=== PATIENT | male | born 1980 | race African-American/Black ===

== ENCOUNTER 2018-04-28 10:57 | Inpatient (IN) | payer OTHER ==
[~2018-04-28] VITALS: Ht 167.6 cm; Wt 55.3 kg
--- NOTE | 2018-04-28 11:10 | NUR ---
ED Nurse Note: Pt from home came in due to SOB x 1 week. Audible wheezing noted. Also c/o nausea/Vomiting. Pt has hx of asthma and AIDS. Noted weakness and accesory muscles used for breathing. Pt is AAO x4, ambulatory with SOB at rest.
[2018-04-28] MEDS ORDERED: Ipratropium 0.02% Inh Soln 2.5ml UD HHN ONE (11:15)
[2018-04-28] MEDS ORDERED: Albuterol ud Inhalation HHN ONE (11:15)
[2018-04-28] MEDS ORDERED: GENVOYA TABLET1 EACH PO (11:18)
[2018-04-28] MEDS ORDERED: DOCUSATE SODIU100 MG ORAL (11:18)
[2018-04-28 11:30] VITALS: BP 121/75
--- NOTE | 2018-04-28 11:40 | NUR ---
ED Nurse Note: Pt unable to urinate at this time.
[2018-04-28] MEDS ORDERED: Lidocaine 2% Visc 15ml soln ORAL ONE (11:45)
--- NOTE | 2018-04-28 11:45 | NUR ---
ED Nurse Note: Collected blood and flu swab sent.
[2018-04-28 11:50] LABS: HEMATOCRIT 38.1 % (42.0-52.0); HEMOGLOBIN 12.8 G/DL (14.2-18.0); MEAN CORPUSCULAR VOLUME 107 FL (80-99); PLATELET COUNT 274 K/UL (150-450); RED BLOOD COUNT 3.55 M/UL (4.70-6.10); RED CELL DISTRIBUTION WIDTH 14.2 % (11.6-14.8); WHITE BLOOD COUNT 3.4 K/UL (4.8-10.8)
[2018-04-28 12:01] LABS: ANION GAP 9 mmol/L (5-15); BLOOD UREA NITROGEN 16 mg/dL (7-18); CALCIUM 8.8 MG/DL (8.5-10.1); CARBON DIOXIDE 26 MMOL/L (21-32); CHLORIDE 97 MMOL/L (98-107); CREATININE 0.9 MG/DL (0.55-1.30); POTASSIUM 4.3 MMOL/L (3.5-5.1); SODIUM 132 MMOL/L (136-145)
[2018-04-28 12:05] LABS: ALANINE AMINOTRANSFERASE 22 U/L (12-78); ALBUMIN/GLOBULIN RATIO 0.3 (1.0-2.7); ALKALINE PHOSPHATASE 126 U/L (46-116); ASPARTATE AMINO TRANSFERASE 98 U/L (15-37); BILIRUBIN,TOTAL 0.4 MG/DL (0.2-1.0)
--- NOTE | 2018-04-28 12:09 | Diagnostic Imaging Report ---
Indication: Cough Technique: One view of the chest Comparison: none Findings: The heart is upper limits normal in size. There is extensive bilateral diffuse interstitial and airspace disease, particularly in the mid to lower lungs. The pleural spaces are grossly clear. Impression: Extensive bilateral diffuse interstitial and airspace infiltrates versus edema, predominantly in the mid and lower lung
--- NOTE | 2018-04-28 12:30 | NUR ---
ED Nurse Note: Collected urine and sent.
[2018-04-28 12:49] LABS: APPEARANCE,URINE CLEAR; BILIRUBIN, URINE NEGATIVE (NEGATIVE); COLOR,URINE BROWN; GLUCOSE, URINE (UA) NEGATIVE (NEGATIVE); KETONES,URINE 1+ (NEGATIVE); LEUKOCYTE ESTERASE ,URINE 1+ (NEGATIVE); NITRITE,URINE NEGATIVE (NEGATIVE); PH,URINE 6.5 (4.5-8.0); PROTEIN,URINE 3+ (NEGATIVE); UROBILINOGEN,URINE 1 MG/DL (0.0-1.0)
[2018-04-28 13:30] VITALS: BP 118/85
[2018-04-28] MEDS ORDERED: Azithromycin 500 MG in NS 275 ML IV ONE (14:00)
[2018-04-28] MEDS ORDERED: cefTRIAXone 1 GM in NS 55 ML IVPB ONE (14:00)
--- NOTE | 2018-04-28 14:04 | NUR ---
ED Nurse Note: Pt instructed to report any increased SOB or difficulty breathing during fluid administration. Pt verbalized understanding of teachings.
--- NOTE | 2018-04-28 14:17 | Emergency Room Report ---
History of Present Illness General Chief Complaint: Dyspnea/Respdistress Source: Patient Present Illness HPI Patient has a history of HIV/AIDS. He states that he hasn't been taking care of himself and hasn't been following on with his infectious disease specialist. He states that his life has been busy. He did recently restart anti- retroviral therapy. He complains of shortness of breath that is persistent and constant. He states he noted this worsening over the past couple days. He has had some coughing and congestion. Denies fever or chills. He states he's been fatigued and has had a poor appetite. He has also had weight loss. He denies chest pain. He denies abdominal pain. He has no other complaints. Allergies: Coded Allergies: No Known Allergies (Unverified , 04/28/18) Patient History Past Medical History: see triage record, asthma, seizures, HIV - AIDS, other - Hemorrhoids Social History: Denies: smoking, alcohol use, drug use Reviewed Nursing Documentation: PMH: Agreed; PSxH: Agreed Nursing Documentation-PMH Hx Asthma: Yes Hx Seizures: Yes Review of Systems All Other Systems: negative except mentioned in HPI Physical Exam Vital Signs Date Time Temp Pulse Resp B/P (MAP) Pulse Ox O2 Delivery O2 Flow Rate FiO2 04/28/18 11:00 98.1 119 24 120/74 75 Room Air 04/28/18 11:30 2.0 04/28/18 11:34 28 Sp02 EP Interpretation: reviewed, normal General Appearance: no apparent distress, alert, GCS 15, non-toxic Head: normocephalic, atraumatic Eyes: bilateral eye normal inspection, bilateral eye PERRL ENT: hearing grossly normal, normal pharynx, no angioedema, normal voice Neck: full range of motion, supple/symm/no masses Respiratory: chest non-tender, lungs clear, normal breath sounds, no respiratory distress, no retraction, no accessory muscle use, speaking full sentences, other - tachypnea Cardiovascular #1: regular rate, rhythm, no edema Gastrointestinal: normal bowel sounds, non tender, soft, non-distended, no guarding, no rebound Rectal: deferred Musculoskeletal: back normal, gait/station normal, normal range of motion, non- tender Neurologic: alert, oriented x3, responsive, motor strength/tone normal, sensory intact, speech normal Psychiatric: judgement/insight normal, memory normal, mood/affect normal, no suicidal/homicidal ideation Skin: normal color, no rash, warm/dry, well hydrated Medical Decision Making Diagnostic Impression: Primary Impression: Dyspnea Additional Impression: Pneumonia ER Course This patient is immunocompromised. He has HIV and likely has full-blown AIDS. It sounds as if this patient has not been aggressively treating his HIV. He is just beginning to do so. He presents with shortness of breath and is found to have bilateral infiltrates on chest x-ray. He does not have a history of congestive heart failure and does not have cardiomegaly so although this could be congestive heart failure, I suspect it is an atypical pneumonia. The patient was given Rocephin, azithromycin and Septra to fully cover him. He was also placed on BiPAP for comfort and dyspnea. He is admitted for further evaluation and treatment. He will be admitted to the ICU step down unit. This patient is critically ill. This patient required complex medical decision- making, aggressive intervention, extensive laboratory workup and monitoring. Critical care time: 40 minutes. Laboratory Tests Test 04/28/18 11:30 04/28/18 12:30 White Blood Count 3.4 K/UL (4.8-10.8) L Red Blood Count 3.55 M/UL (4.70-6.10) L Hemoglobin 12.8 G/DL (14.2-18.0) L Hematocrit 38.1 % (42.0-52.0) L Mean Corpuscular Volume 107 FL (80-99) H Mean Corpuscular Hemoglobin 36.0 PG (27.0-31.0) H Mean Corpuscular Hemoglobin Concent 33.5 G/DL (32.0-36.0) Red Cell Distribution Width 14.2 % (11.6-14.8) Platelet Count 274 K/UL (150-450) Mean Platelet Volume 6.9 FL (6.5-10.1) Neutrophils (%) (Auto) % (45.0-75.0) Lymphocytes (%) (Auto) % (20.0-45.0) Monocytes (%) (Auto) % (1.0-10.0) Eosinophils (%) (Auto) % (0.0-3.0) Basophils (%) (Auto) % (0.0-2.0) Differential Total Cells Counted 100 Neutrophils % (Manual) 76 % (45-75) H Lymphocytes % (Manual) 14 % (20-45) L Monocytes % (Manual) 10 % (1-10) Eosinophils % (Manual) 0 % (0-3) Basophils % (Manual) 0 % (0-2) Band Neutrophils 0 % (0-8) Platelet Estimate Adequate Platelet Morphology Normal Macrocytosis 1+ Sodium Level 132 MMOL/L (136-145) L Potassium Level 4.3 MMOL/L (3.5-5.1) Chloride Level 97 MMOL/L (98-107) L Carbon Dioxide Level 26 MMOL/L (21-32) Anion Gap 9 mmol/L (5-15) Blood Urea Nitrogen 16 mg/dL (7-18) Creatinine 0.9 MG/DL (0.55-1.30) Estimate Glomerular Filtration Rate > 60 mL/min (>60) Glucose Level 85 MG/DL (74-106) Calcium Level 8.8 MG/DL (8.5-10.1) Total Bilirubin 0.4 MG/DL (0.2-1.0) Aspartate Amino Transferase (AST) 98 U/L (15-37) H Alanine Aminotransferase (ALT) 22 U/L (12-78) Alkaline Phosphatase 126 U/L (46-116) H Troponin I 0.000 ng/mL (0.000-0.056) Total Protein 7.9 G/DL (6.4-8.2) Albumin 2.0 G/DL (3.4-5.0) L Globulin 5.9 g/dL Albumin/Globulin Ratio 0.3 (1.0-2.7) L Urine Color Brown Urine Appearance Clear Urine pH 6.5 (4.5-8.0) Urine Specific [place] 1.010 (1.005-1.035) Urine Protein 3+ (NEGATIVE) H Urine Glucose (UA) Negative (NEGATIVE) Urine Ketones 1+ (NEGATIVE) H Urine Blood Negative (NEGATIVE) Urine Nitrite Negative (NEGATIVE) Urine Bilirubin Negative (NEGATIVE) Urine Urobilinogen 1 MG/DL (0.0-1.0) H Urine Leukocyte Esterase 1+ (NEGATIVE) H Urine RBC 0-2 /HPF (0 - 0) H Urine WBC 0-2 /HPF (0 - 0) Urine Squamous Epithelial Cells Occasional /LPF Urine Bacteria Occasional /HPF (NONE) Urine Hyaline Casts 0-2 /LPF (NONE) H Microbiology Date/Time Source Procedure Growth Status 04/28/18 11:30 Nasal Nares Influenza Types A,B Antigen (BREEZY) - Final Complete EKG Diagnostic Results Rate: tachycardiac Rhythm: other - S.tachycardia ST Segments: no acute changes Rhythm Strip Diag. Results EP Interpretation: yes Rate: 110's Rhythm: no PVC's, no ectopy, other - S.tachycardia Chest X-Ray Diagnostic Results Chest X-Ray Diagnostic Results : Chest X-Ray Ordered: Yes # of Views/Limited/Complete: 1 View Indication: Shortness of Breath Interpretation: no pneumothorax, other - Bilateral infiltrates Impression: Other - See above. Electronically Signed by: Bia Ram DO Last Vital Signs Date Time Temp Pulse Resp B/P (MAP) Pulse Ox O2 Delivery O2 Flow Rate FiO2 04/28/18 11:49 105 18 97 Nasal Cannula 2.0 28 04/28/18 11:30 98.5 121/75 Status: improved Disposition: ADMITTED INPATIENT Condition: Critical Referrals: Jyoti DONALDSON,REFERRING (PCP) Bia Ram DO Apr 28, 2018 14:17
[2018-04-28 14:22] VITALS: BP 128/82
[2018-04-28] MEDS ORDERED: Bactrim 20ml in D5W 550ml IV ONE (15:00)
[2018-04-28] MEDS ORDERED: Pantoprazole Inj IVP ONE (15:30)
[2018-04-28] MEDS ORDERED: LORazepam Inj 2mg/ml 1ml IV ONE (15:30)
--- NOTE | 2018-04-28 16:16 | NUR ---
ED Nurse Note: Report given to Yamini RYAN of SDU.
[2018-04-28 17:00] VITALS: BP 113/74
--- NOTE | 2018-04-28 17:27 | NUR ---
NURSE NOTES: Received pt from ED via gurney. Pt AAOX4. RR labored. Pt currently using BiPAP on 12/22, FiO2 30%. Pt speaking with RN in complete sentences and tolerating BiPAP well. Pt noted with audible wheezes. Pt remains in high fowlers position. Pt NST-ST to CM. Skin warm to touch; Pt febrile with ax temp 101.9F. Will notify admitting MD. Pt continues to rest in bed. Awaiting to hear back from MD. NAD noted.
--- NOTE | 2018-04-28 17:36 | NUR ---
NURSE NOTES: This RN called Dr. Roy on his emergency line for admitting orders with no response. Message left for MD for admitting orders for pt. Awaiting for call back with further orders.
[2018-04-28] MEDS: Acetaminophen 500mg (ES) tab ORAL PRN (18:23)
--- NOTE | 2018-04-28 18:45 | NUR ---
NURSE NOTES: Pt medicated with Tylenol for fever per MD Roy. Pt vocalizes to RN that he does not remember what his home medications are.
--- NOTE | 2018-04-28 18:53 | NUR ---
HAND-OFF: Report given to Joelle RYAN for continuity of care using SBAR. Pt resting in bed while texting on phone. NAD noted.
--- NOTE | 2018-04-28 19:05 | NUR ---
NURSE NOTES: Received report from Radu Gaffney RN. Patient is awake in bed, A/O x4. No s/s of acute distress noted at this time. Sinus rhythm on front desk monitor. Saturating well on BIPAP settings: /, FiO2 30%. Right wrist 20g IV saline lock, intact and patent. Bed locked in lowest position with padded side rails up x3. Call light left within reach. Will continue to monitor. Addendum: 04/28/18 at 2124 by ROSARIO FRITZ RN Right AC 20g IV -- NOT wrist
--- NOTE | 2018-04-28 19:45 | NUR ---
NURSE NOTES: Previous shift nurse, Radu Gaffney RN, that Dr. Roy ordered to continue home medications. However, patient remains unable to recall home medications. Patient said his sister, Yaa Saravia, would be able to help with medication reconciliation. I called patient's sister and she said she is currently working and would be able to gather medication information either late tonight or tomorrow morning. Will continue to monitor.
--- NOTE | 2018-04-28 19:52 | NUR ---
RESPIRATORY NOTE: Received pt. on BIPAP. BIPAP settings are: 10/5, PS of 5, rate of 12, Fi02 30%. Ambu bag @ BS. No respiratory distress noted, pt. Sp02 @ 100%. BIPAP plugged on red outlet. Will continue to monitor pt.
[2018-04-28 20:00] VITALS: BP 125/62
[2018-04-28] MEDS ORDERED: ANTI-ITCH28 G1 TP (20:40)
[2018-04-28] MEDS ORDERED: LD2JL30 TOPIC (20:40)
[2018-04-29] VITALS: BP 111/81
[2018-04-29] MEDS: Acetaminophen 500mg (ES) tab ORAL PRN (05:45)
--- NOTE | 2018-04-29 07:05 | NUR ---
HAND-OFF: Report given to Joe Varela RN.
--- NOTE | 2018-04-29 07:20 | NUR ---
NURSE NOTES: Received patient from Sloan Currie RN. Patient awake in bed, alert and oriented x 4, able to make needs known. Receiving O2 via Venturi mask @ 8L/min, FiO2 40%, no s/s of respiratory distress noted. Right AC 20g saline lock patent and asymptomatic. Bed locked in lowest position with padded side rails up x 3. All needs attended to. Call light within reach. Will continue to monitor.
[2018-04-29] MEDS: Docusate 100mg cap ORAL SCH ×2 (09:03→17:51)
[2018-04-29] MEDS: GENVOYA ORAL SCH (09:45)
[2018-04-29] MEDS ORDERED: Albuterol/Ipratropium 3ml neb HHN PRN (10:00)
--- NOTE | 2018-04-29 10:19 | NUR ---
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
--- NOTE | 2018-04-29 10:42 | Consultation ---
Consult Note Assessment/Plan DICT # [id number] Hiren De La Paz MD Apr 29, 2018 10:42
[2018-04-29 12:00] VITALS: BP 106/78
--- NOTE | 2018-04-29 12:02 | Consultation ---
History of Present Illness General Chief Complaint: Dyspnea/Respdistress Present Illness HPI 38-year-old male with HIV depression and anxiety, who presented to the ER with approximately 2 weeks of cough, congestion, and shortness of breath. the pt is anxious and depressed the pt is not suicidal nor homicidal the pt is not delusional the pt is able to understand and process the info Allergies: Coded Allergies: No Known Allergies (Unverified , 04/28/18) Medication History Scheduled Docusate Sodium* (Docusate Sodium*), 100 MG ORAL TWICE A DAY, (Reported) Elviteg/Salma/Emtric/Tenofo Ala (Genvoya Tablet), 1 EACH PO DAILY, (Reported) Scheduled PRN Hydrocortisone 2% Cream (Anti-Itch 2% Cream), 28 GM TP for Hemorroidal Pain, ( Reported) Lidocaine HCL 2% Jelly* (Lidocaine Jelly 2%*), 5 ML TOPIC DAILY PRN for Hemorroidal Pain, (Reported) Patient History History Provided By: Patient, Medical Record, PMD Healthcare decision maker N Resuscitation status Full Code Advanced Directive on File No Past Medical/Surgical History Past Medical/Surgical History: (1) Dyspnea (2) Pneumonia (3) AIDS nephropathy (4) AIDS (5) Hyponatremia (6) Hypoalbuminemia (7) Opportunistic infection (8) Lung nodule, multiple (9) Ground glass opacity present on imaging of lung (10) Pulmonary edema (11) Proteinuria (12) Depressive disorder Review of Systems Psychiatric: Reports: prior hx, anxiety, depressed feelings, emotional problems Physical Exam General Appearance: no apparent distress, alert Neurologic: oriented x 3, responsive, depressed affect Last 24 Hour Vital Signs Date Time Temp Pulse Resp B/P (MAP) Pulse Ox O2 Delivery O2 Flow Rate FiO2 04/29/18 08:00 8.0 40 04/29/18 08:00 Venturi Mask 8.0 04/29/18 07:37 96 04/29/18 06:15 99.7 04/29/18 04:00 Bi-pap 04/29/18 04:00 7.0 40 04/29/18 03:52 107 04/29/18 00:00 Bi-pap 04/29/18 00:00 98.1 95 37 111/81 (91) 100 04/29/18 00:00 30 04/28/18 23:23 98 3/12/19 23:05 96 37 93 Facial 35 04/28/18 20:27 101 35 90 Facial 30 04/28/18 20:00 Bi-pap 04/28/18 20:00 99.5 101 40 125/62 (83) 94 04/28/18 19:50 111 39 100 Facial 30 04/28/18 19:44 111 04/28/18 17:00 30 04/28/18 17:00 30 04/28/18 17:00 101.9 110 27 113/74 (87) 95 04/28/18 16:59 Bi-pap 30.0 Bi-pap 04/28/18 16:20 115 47 100 Facial 30 04/28/18 14:22 98.8 102 25 128/82 98 Bi-pap 04/28/18 14:10 102 45 95 Facial 30 04/28/18 14:10 30 04/28/18 13:30 98.5 98 22 118/85 97 Nasal Cannula 2.0 Intake and Output 04/28/18 04/29/18 18:59 06:59 Intake Total 1055 ml Output Total 800 ml Balance 1055 ml -800 ml Intake IV Total 1055 ml Output Urine Total 800 ml # Voids 1 Laboratory Tests Test 04/28/18 12:30 04/29/18 10:22 04/29/18 11:15 Urine Color Brown Urine Appearance Clear Urine pH 6.5 (4.5-8.0) Urine Specific [place] 1.010 (1.005-1.035) Urine Protein 3+ (NEGATIVE) H Urine Glucose (UA) Negative (NEGATIVE) Urine Ketones 1+ (NEGATIVE) H Urine Blood Negative (NEGATIVE) Urine Nitrite Negative (NEGATIVE) Urine Bilirubin Negative (NEGATIVE) Urine Urobilinogen 1 MG/DL (0.0-1.0) H Urine Leukocyte Esterase 1+ (NEGATIVE) H Urine RBC 0-2 /HPF (0 - 0) H Urine WBC 0-2 /HPF (0 - 0) Urine Squamous Epithelial Cells Occasional /LPF Urine Bacteria Occasional /HPF (NONE) Urine Hyaline Casts 0-2 /LPF (NONE) H Arterial Blood pH 7.451 (7.350-7.450) Arterial Blood Partial Pressure CO2 31.7 mmHg (35.0-45.0) L Arterial Blood Partial Pressure O2 87.2 mmHg (75.0-100.0) Arterial Blood HCO3 21.6 mmol/L (22.0-26.0) L Arterial Blood Oxygen Saturation 95.8 % (95-100) Arterial Blood Base Excess -1.6 (-2-2) Ravi Test Positive White Blood Count Pending Lymphocytes Pending Lactate Dehydrogenase Pending Percent CD3 Cells Pending Absolute CD3 Count Pending Percent CD4 Cells Pending Absolute CD4 Count Pending T-Lymphocyte CD4/CD8 Ratio Pending Percent CD8 Cells Pending Absolute CD8 Count Pending HIV-1 RNA (PCR) log10 Value Pending HIV-1 RNA Ultraquantitative (PCR) Pending Height (Feet): 5 Height (Inches): 6.00 Weight (Pounds): 130 Medications Current Medications Medications (Trade) Dose Ordered Sig/Garrick Route PRN Reason Start Time Stop Time Status Last Admin Dose Admin Acetaminophen (Tylenol) 500 mg Q4H PRN ORAL Mild Pain/Temp > 100.5 04/28/18 18:00 05/28/18 17:59 04/29/18 05:45 Albuterol/ Ipratropium (Albuterol/ Ipratropium) 3 ml Q4H PRN HHN Shortness of Breath 04/29/18 10:00 05/04/18 09:59 Albuterol/ Ipratropium (Albuterol/ Ipratropium) 3 ml Q6HRT HHN 04/29/18 13:00 05/04/18 12:59 Azithromycin (Zithromax) 250 mg Q24H ORAL 04/29/18 14:00 05/06/18 13:59 Ceftriaxone Sodium 1 gm/ Dextrose 55 ml @ 110 mls/hr Q24H IVPB 04/29/18 14:00 05/06/18 13:59 Docusate Sodium (Colace) 100 mg TWICE A DAY ORAL 04/29/18 09:00 05/29/18 08:59 04/29/18 09:03 Heparin Sodium (Porcine) (Heparin 5000 units/ml) 5,000 units EVERY 12 HOURS SUBQ 04/29/18 21:00 05/29/18 20:59 Hydrocortisone (Anusol HC) 1 applic DAILYPRN PRN RECTAL hemorrhoid 04/28/18 21:00 05/28/18 20:59 04/29/18 11:39 Lidocaine (Xylocaine 5% cream) 1 applic DAILYPRN PRN TOPIC hemorroidal pain 04/28/18 21:00 05/28/18 20:59 Patient Own Medication (Patient's Own Med) 1 ea DAILY ORAL 04/29/18 09:00 05/29/18 08:59 04/29/18 09:45 Prednisone (predniSONE) 40 mg BID ORAL 04/29/18 18:00 05/29/18 17:59 Trimethoprim/ Sulfamethoxazole 20 ml/Dextrose 570 ml @ 380 mls/hr EVERY 8 HOURS IV 04/29/18 14:00 05/06/18 13:59 Assessment/Plan Problem List: (1) Depressive disorder ICD Codes: F32.9 - Major depressive disorder, single episode, unspecified SNOMED: [id number] Status: unchanged Assessment/Plan seroquel standing seroquel prn the pt lacks capacity Elver Almaguer MD Apr 29, 2018 12:01
[2018-04-29] MEDS ORDERED: Lidocaine 4% Cream 15g TOPIC PRN (13:00)
[2018-04-29] MEDS: Albuterol/Ipratropium 3ml neb HHN SCH ×2 (13:24→20:16)
[2018-04-29] MEDS ORDERED: Thiamine 100mg tab ORAL SCH (13:30)
[2018-04-29] MEDS: Azithromycin 250mg tab ORAL SCH (13:50)
[2018-04-29] MEDS: cefTRIAXone 1 GM in D5W 55 ML IVPB SCH (13:57)
--- NOTE | 2018-04-29 13:58 | Consultation ---
Consult Note Consult Note asked to eval for strong proteinuria and hypoalbuminemia Patient has a history of HIV/AIDS. He states that he hasn't been taking care of himself and hasn't been following on with his infectious disease specialist. He states that his life has been busy. He did recently restart anti- retroviral therapy. He complains of shortness of breath that is persistent and constant. He states he noted this worsening over the past couple days. He has had some coughing and congestion. Denies fever or chills. He states he's been fatigued and has had a poor appetite. He has also had weight loss. He denies chest pain. He denies abdominal pain. He has no other complaints. Coded Allergies: No Known Allergies (Unverified , 04/28/18) Past Medical History: see triage record, asthma, seizures, HIV - AIDS, other - Hemorrhoids Social History: Denies: smoking, alcohol use, drug use Reviewed Nursing Documentation: PMH: Agreed; PSxH: Agreed Assessment/Plan Proteinuria / HypoAlbuminemia ? AIDs Nephropathy Sz Asthma HIV / AIDS Anemia Low Na 24 H urine Protein Anemia cotter per orders Lukasz Eric MD Apr 29, 2018 13:58
[2018-04-29] MEDS ORDERED: Bactrim 20ml in D5W 550ml IV SCH (14:00)
--- NOTE | 2018-04-29 15:27 | NUR ---
ST NOTE: BEDSIDE SWALLOW EVAL RECEIVED BEDSIDE SWALLOW EVAL CHART REVIEWED PRIOR THE EVALUATION PT IS A 38-YEAR-OLD MALE WHO WAS ADMITTED DUE TO PNA AND PULMONARY EDEMA. DYSPHAGIA RISK FACTORS: H/O SEIZURE, HIV/AIDS, ASTHMA. PER PT, VOMITED LAST FRIDAY AND FRIDAY BUT STOPPED SAT AND SUN. PER CXR: Impression: Extensive bilateral diffuse interstitial and airspace infiltrates versus edema, predominantly in the mid and lower lung PLOF: PT RESIDES AT HOME WITH FAMILY CURRENT STATUS: PT SEEN AT BEDSIDE IN PM. ALERT, COOPERATIVE, FOLLOWS DIRECTIONS. PT WITH VENTURI MASK(8L). WEAK PRODUCTIVE COUGH. GIVEN PO TRIALS: ICE-CHIPS(TSP), THIN(TSP), NECTAR THICK(TSP) AND PUREE(TSP) AND CRACKER X 1 INITIAL IMPRESSION: GOOD DENTITION. GOOD MASTICATION TIME, MILD INCREASED ORAL TRANSIT TIME AND OROPHARYNGEAL TRANSIT TIME, FAIR LARYNGEAL ELEVATION, NO OVERT S/S OF ASPIRATION. HAS RISK FOR ASPIRATION SECONDARY TO CURRENT RESP ISSUE. RECOMMENDATIONS: 1. FOR QUALITY OF LIFE, SLOWLY INITIATE MOIST PUREE WITH NECTAR THICK LIQUIDS. 2. STRICT ASPIRATION PRECAUTIONS WITH SUPERVISION 3. ADVANCED DIET WHEN PT'S RESP STATUS IMPROVES 4. VIDEOSWALLOW STUDY IF NEEDED. D/W PT AND RNSARAH POSTED ASPIRATION PRECAUTIONS SIGN.
[2018-04-29 16:00] VITALS: BP 127/82
[2018-04-29] MEDS ORDERED: NS 275ml ONE (17:39)
[2018-04-29] MEDS ORDERED: Tubing IV Secondary IV ONE (17:39)
--- NOTE | 2018-04-29 19:12 | NUR ---
HAND-OFF: Report given to Meagan Marroquin RN. Nurse is aware of 24 hour urine collection due at 1500 04/30/18.
--- NOTE | 2018-04-29 19:15 | NUR ---
NURSE NOTES: Received report from Vidhi RYAN, pt. in bed awake, A/O x's4- able to make needs known, no signs or symptoms of acute cardiac or respiratory distress noted, bed in lowest position and call light within easy reach, bed alarm on, side rails up x's 3 and safety brakes engaged, pt. aware to ask for assistance when ambulating, cardiac monitoring on, pt. appears to be tolerating current vent settings well at 8L Fio2 T40%- no distress noted, urinal at bedside and within easy reach, Rt. AC IV intact and patent. safety measures continued, will continue with plan of care. Addendum: 04/30/18 at 0100 by SHAI SMITH RN RN Side rails padded for seizure precautions- no signs of seizure activity noted.
[2018-04-29 20:00] VITALS: BP 103/66
[2018-04-29] MEDS: Heparin 5000 units/ml inj SUBQ SCH (20:27)
[2018-04-29] MEDS ORDERED: Bactrim SS Tab ORAL SCH (21:00)
[2018-04-29] MEDS: Bactrim 20ml in D5W 550ml IV SCH (23:07)
[2018-04-30] VITALS: BP 99/60
--- NOTE | 2018-04-30 | NUR ---
NURSE NOTES: Encouraged patient to take a bath- pt. stated he does not want a bath as he is sleeping. Pt. stated he will take a bath later in morning time.
[2018-04-30] MEDS: Albuterol/Ipratropium 3ml neb HHN SCH ×4 (01:09→19:40)
[2018-04-30 04:00] VITALS: BP 106/60
[2018-04-30 06:33] LABS: % IRON SATURATION 48 % (15-50); IRON 31 ug/dL (50-175); TOTAL IRON BINDING CAPACITY 64 ug/dL (250-450)
[2018-04-30 07:06] LABS: ALANINE AMINOTRANSFERASE 13 U/L (12-78); ALBUMIN 1.6 G/DL (3.4-5.0); ALBUMIN/GLOBULIN RATIO 0.3 (1.0-2.7); ALKALINE PHOSPHATASE 100 U/L (46-116); ANION GAP 8 mmol/L (5-15); ASPARTATE AMINO TRANSFERASE 59 U/L (15-37); BILIRUBIN,TOTAL 0.2 MG/DL (0.2-1.0); BLOOD UREA NITROGEN 12 mg/dL (7-18); CARBON DIOXIDE 24 MMOL/L (21-32); CHLORIDE 100 MMOL/L (98-107); CHOLESTEROL 50 MG/DL (< 200); CREATININE 0.8 MG/DL (0.55-1.30); HDL CHOLESTEROL 10 MG/DL (40-60); PHOSPHORUS 4.4 MG/DL (2.5-4.9); POTASSIUM 4.1 MMOL/L (3.5-5.1); SODIUM 132 MMOL/L (136-145); TRIGLYCERIDES 76 MG/DL (30-150)
--- NOTE | 2018-04-30 07:09 | NUR ---
HAND-OFF: Report sheet given to Charge nurse Brooke to give to Am Nurse Powell Rn, pt. remains stable and no signs of distress noted. Aware to turn in 24 hour urine collection at lab at 1500pm today. Addendum: 04/30/18 at 0722 by SHAI SMITH RN RN correction to msg above, report given to Cortney RYAN- ward Cox.
[2018-04-30 08:00] VITALS: BP 118/86
--- NOTE | 2018-04-30 08:04 | NUR ---
NURSE NOTES: Received patient alert and oriented x3. On chair at this time. states that he wants to be on the chair for a while. Denies pain or discomofrt. Venturi mask 40%. No s/s dyspnea noted. 24 hour urine collection container in ice. Skin intact. R ac 20. Will continue plan of care.
[2018-04-30] MEDS: GENVOYA ORAL SCH (09:00)
[2018-04-30] MEDS: Bactrim 20ml in D5W 550ml IV SCH ×2 (09:01→16:18)
[2018-04-30] MEDS: Thiamine 100mg tab ORAL SCH (09:01)
[2018-04-30] MEDS: Docusate 100mg cap ORAL SCH ×2 (09:01→17:06)
[2018-04-30] MEDS: Heparin 5000 units/ml inj SUBQ SCH ×2 (09:04→20:52)
--- NOTE | 2018-04-30 09:32 | Diagnostic Imaging Report ---
Clinical Indication: Shortness of breath Technique: Spiral acquisitions obtained through the chest. No IV contrast utilized, for referring physician request. Multiplanar reconstructions generated. Total dose length product 525 mGycm. CTDIvol(s) 13 mGy. Dose reduction achieved using automated exposure control Comparison: none Findings:Subpleural blebs or bullae are seen in the lung apices bilaterally, right greater than left. There is generalized diffuse pulmonary parenchymal groundglass opacity, with progressively denser consolidation toward the lung bases there are a few small areas of spared parenchyma bilaterally. Air bronchograms are seen in the areas of denser consolidation. Disease is mostly alveolar, without definite significant interstitial component. In the right upper lobe, images 14 through 17 of series 3, there is a spiculated peripheral mass which measures 15 mm in diameter. Multiple other nodules/masses are seen bilaterally measuring up to 11 mm in diameter, appearing largely limited to the upper lobes, although lower lobe and right middle lobe masses could be obscured by the surrounding parenchymal disease. There is no evidence of pleural effusion. There is minimal anterior wall pericardial thickening versus fluid. The heart size is upper limits of normal. The main pulmonary artery is ectatic although not frankly dilated, measuring up to 35 mm in diameter. It is larger in caliber than the adjacent ascending thoracic aorta. Prominent but not frankly enlarged mediastinal lymph nodes are demonstrated. The included portion of the thyroid is unremarkable. No axillary or chest wall mass or adenopathy demonstrated. The included upper abdominal anatomy is remarkable for granulomatous calcifications within the spleen. Impression: Diffuse extensive pulmonary parenchymal disease, sparing only a very limited portion of the lungs bilaterally. Predominant finding is that of diffuse groundglass opacity, progressively denser toward the lung bases. In the setting of HIV positivity, main differential considerations are opportunistic infection such as a metastasis pneumonia, cytomegalovirus, herpes simplex virus, or respiratory syncytial virus. Community-acquired pneumonia, chronic interstitial diseases such as is distended filling pneumonias or idiopathic interstitial pneumonias, alveolar edema, hypersensitivity pneumonitis are also in the differential. Multiple pulmonary masses/nodules. The largest of these are spiculated with appearance highly typical for pulmonary neoplasm. However, given the findings as described above, the possibility that these are inflammatory in origin should also be considered Bilateral apical subpleural blebs versus bullae, right greater than left Ectatic main pulmonary artery. The fact that this is larger in size in the ascending thoracic aorta is suspicious for pulmonary arterial hypertension Minimal anterior wall pericardial thickening versus fluid Evidence old granulomatous disease in the spleen The CT scanner at [facility] is accredited by the [employer] and the scans are performed using protocols designed to limit radiation exposure to as low as reasonably achievable to attain images of sufficient resolution adequate for diagnostic evaluation.
--- NOTE | 2018-04-30 09:34 | Diagnostic Imaging Report ---
APPROVED REPORT CPT Code: 71726 Present Symptoms Comments: BILATERAL LEGS PAIN. BILATERAL: Imaging reveals a patent deep venous system bilaterally. There is no evidence of thrombus within the femoral, popliteal or tibial segments. The greater saphenous veins are also within normal limits. Doppler indicates normal spontaneous flow within these segments.
--- NOTE | 2018-04-30 10:52 | Infectious Diseases Prog Note ---
Assessment/Plan Assessment/Plan antibiotics : ceftriaxone, azithromycin, iv bactrim A 1. pneumonia r/o PCP, increased LDH 2. AIDS, cd4 18 3. seizures 4. asthma P 1. continue ceftriaxone, azithromycin 2. continue bactrim iv, steroids 3. will follow up cultures 4. consider bronchoscopy Subjective Constitutional: Denies: fever, chills Respiratory: Reports: shortness of breath, productive cough Gastrointestinal/Abdominal: Reports: diarrhea; Denies: nausea, vomiting Musculoskeletal: Reports: pain Allergies: Coded Allergies: No Known Allergies (Unverified , 04/28/18) Objective Vital Signs Last 24 Hour Vital Signs Date Time Temp Pulse Resp B/P (MAP) Pulse Ox O2 Delivery O2 Flow Rate FiO2 04/30/18 08:00 8.0 40 04/30/18 08:00 Venturi Mask 8.0 04/30/18 08:00 97.0 98 26 118/86 (97) 98 04/30/18 08:00 96 04/30/18 07:02 84 20 96 Venturi Mask 10.0 45 04/30/18 07:02 84 22 95 Venturi Mask 10.0 45 04/30/18 07:02 96 Venturi Mask 10.0 45 04/30/18 07:02 Venturi Mask 10.0 45 04/30/18 04:00 8.0 40 04/30/18 04:00 71 04/30/18 04:00 Venturi Mask 8.0 04/30/18 04:00 97.4 73 26 106/60 (75) 94 04/30/18 01:16 89 20 97 Venturi Mask 10.0 45 04/30/18 01:11 87 22 94 Venturi Mask 10.0 45 04/30/18 00:00 68 04/30/18 00:00 Venturi Mask 8.0 04/30/18 00:00 8.0 40 04/30/18 00:00 Venturi Mask 8.0 04/30/18 00:00 8.0 40 04/30/18 00:00 Venturi Mask 8.0 04/30/18 00:00 99.0 73 24 99/60 (73) 97 04/29/18 20:29 98 25 95 Venturi Mask 10.0 45 04/29/18 20:20 97 26 92 Venturi Mask 8.0 40 04/29/18 20:00 99.1 101 25 103/66 (78) 96 04/29/18 20:00 Venturi Mask 8.0 04/29/18 20:00 8.0 40 04/29/18 20:00 103 04/29/18 19:50 Venturi Mask 10.0 45 04/29/18 19:50 96 Venturi Mask 10.0 45 04/29/18 16:00 Venturi Mask 8.0 04/29/18 16:00 8.0 40 04/29/18 16:00 100.2 110 20 127/82 (97) 96 04/29/18 15:47 102 04/29/18 13:30 94 16 99 Venturi Mask 8.0 40 04/29/18 13:24 82 18 98 Venturi Mask 8.0 40 04/29/18 12:00 Venturi Mask 8.0 04/29/18 12:00 98.6 98 20 106/78 (87) 94 04/29/18 12:00 8.0 40 04/29/18 11:34 100 Height (Feet): 5 Height (Inches): 6.00 Weight (Pounds): 130 Respiratory/Chest: lungs clear Cardiovascular: normal rate, regular rhythm, no gallop/murmur Abdomen: soft, non tender Extremities: no edema Microbiology Date/Time Source Procedure Growth Status 04/28/18 11:40 Blood Blood Culture - Preliminary NO GROWTH AFTER 24 HOURS Resulted 04/28/18 11:30 Blood Blood Culture - Preliminary NO GROWTH AFTER 24 HOURS Resulted 04/28/18 11:30 Nasal Nares Influenza Types A,B Antigen (BREEZY) - Final Complete Laboratory Tests Test 04/29/18 11:15 04/30/18 03:45 White Blood Count 4.8 x10E3/uL (3.4-10.8) Lymphocytes 9 % (Not Estab.) Nucleated Red Blood Cells (.) Lactate Dehydrogenase 1168 U/L (81-234) H Absolute Lymphocytes (Cell Immunity 0.4 x10E3/uL (0.7-3.1) L Percent CD3 Cells 75.4 % (57.5-86.2) Absolute CD3 Count 302 /uL (622-2402) L Percent CD4 Cells 4.6 % (30.8-58.5) L Absolute CD4 Count 18 /uL (359-1519) L T-Lymphocyte CD4/CD8 Ratio 0.07 (0.92-3.72) L Percent CD8 Cells 65.7 % (12.0-35.5) H Absolute CD8 Count 263 /uL (109-897) HIV-1 RNA (PCR) log10 Value Pending HIV-1 RNA Ultraquantitative (PCR) Pending Sodium Level 132 MMOL/L (136-145) L Potassium Level 4.1 MMOL/L (3.5-5.1) Chloride Level 100 MMOL/L (98-107) Carbon Dioxide Level 24 MMOL/L (21-32) Anion Gap 8 mmol/L (5-15) Blood Urea Nitrogen 12 mg/dL (7-18) Creatinine 0.8 MG/DL (0.55-1.30) Estimat Glomerular Filtration Rate > 60 mL/min (>60) Glucose Level 147 MG/DL (74-106) H Hemoglobin A1c 5.4 % (4.3-6.0) Osmolality 281 mOsm/kg (297-317) L Uric Acid 2.5 MG/DL (2.6-7.2) L Calcium Level 9.0 MG/DL (8.5-10.1) Phosphorus Level 4.4 MG/DL (2.5-4.9) Magnesium Level 2.1 MG/DL (1.8-2.4) Iron Level 31 ug/dL (50-175) L Total Iron Binding Capacity 64 ug/dL (250-450) L Percent Iron Saturation 48 % (15-50) Unsaturated Iron Binding 33 ug/dL (112-346) L Ferritin 1382 NG/ML (8-388) H Total Bilirubin 0.2 MG/DL (0.2-1.0) Aspartate Amino Transf (AST/SGOT) 59 U/L (15-37) H Alanine Aminotransferase (ALT/SGPT) 13 U/L (12-78) Alkaline Phosphatase 100 U/L (46-116) C-Reactive Protein, Quantitative 25.2 mg/dL (0.00-0.90) H Pro-B-Type Natriuretic Peptide 142 pg/mL (0-125) H Total Protein 7.3 G/DL (6.4-8.2) Albumin 1.6 G/DL (3.4-5.0) L Globulin 5.7 g/dL Albumin/Globulin Ratio 0.3 (1.0-2.7) L Triglycerides Level 76 MG/DL (30-150) Cholesterol Level 50 MG/DL (< 200) LDL Cholesterol 28 mg/dL (<100) HDL Cholesterol 10 MG/DL (40-60) L Cholesterol/HDL Ratio 5.0 (3.3-4.4) H Vitamin B12 Level 1520 PG/ML (193-986) H Folate 3.2 NG/ML (8.6-58.9) L Thyroid Stimulating Hormone (TSH) 1.666 uiU/mL (0.358-3.740) Current Medications Medications (Trade) Dose Ordered Sig/Garrick Route PRN Reason Start Time Stop Time Status Last Admin Dose Admin Acetaminophen (Tylenol) 500 mg Q4H PRN ORAL Mild Pain/Temp > 100.5 04/28/18 18:00 05/28/18 17:59 04/29/18 05:45 Albuterol/ Ipratropium (Albuterol/ Ipratropium) 3 ml Q4H PRN HHN Shortness of Breath 04/29/18 10:00 05/04/18 09:59 Albuterol/ Ipratropium (Albuterol/ Ipratropium) 3 ml Q6HRT HHN 04/29/18 13:00 05/04/18 12:59 04/30/18 01:09 Azithromycin (Zithromax) 250 mg Q24H ORAL 04/29/18 14:00 05/06/18 13:59 04/29/18 13:50 Ceftriaxone Sodium 1 gm/ Dextrose 55 ml @ 110 mls/hr Q24H IVPB 04/29/18 14:00 05/06/18 13:59 04/29/18 13:57 Diazepam (Valium) 10 mg Q2H PRN ORAL For Anxiety 04/29/18 12:31 05/06/18 12:30 Docusate Sodium (Colace) 100 mg TWICE A DAY ORAL 04/29/18 09:00 05/29/18 08:59 04/30/18 09:01 Folic Acid (Folate) 1 mg DAILY ORAL 04/30/18 09:00 05/30/18 08:59 04/30/18 09:01 Heparin Sodium (Porcine) (Heparin 5000 units/ml) 5,000 units EVERY 12 HOURS SUBQ 04/29/18 21:00 05/29/18 20:59 04/30/18 09:04 Hydrocortisone (Anusol HC) 1 applic DAILYPRN PRN RECTAL hemorrhoid 04/28/18 21:00 05/28/18 20:59 04/29/18 11:39 Lidocaine (Xylocaine) 1 applic DAILYPRN PRN TOPIC hemorroidal pain 04/29/18 13:00 05/29/18 12:59 04/29/18 13:37 Patient Own Medication (Patient's Own Med) 1 ea DAILY ORAL 04/29/18 09:00 05/29/18 08:59 04/30/18 09:00 Prednisone (predniSONE) 40 mg BID ORAL 04/29/18 18:00 05/29/18 17:59 04/30/18 09:01 Thiamine HCl (Vitamin B1) 100 mg DAILY ORAL 04/30/18 09:00 05/30/18 08:59 04/30/18 09:01 Trimethoprim/ Sulfamethoxazole 20 ml/Dextrose 570 ml @ 380 mls/hr Q8HR@0000,0800,1600 IV 04/30/18 00:00 05/07/18 00:00 04/30/18 09:01 Adrien Roth MD Apr 30, 2018 10:52
[2018-04-30] MEDS: Acetaminophen 500mg (ES) tab ORAL PRN (11:20)
--- NOTE | 2018-04-30 11:22 | NUR ---
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
[2018-04-30 12:00] VITALS: BP 99/72
--- NOTE | 2018-04-30 12:08 | NUR ---
NURSE NOTES: Patient able to self reposition. Complained of generalized pain. Tylenol given, reassessed. No pain or distress noted at this time. Patient is comfortable. VSS. Will continue to monitor patient.
--- NOTE | 2018-04-30 13:13 | Consultation ---
DATE OF CONSULTATION: 04/29/2018 PULMONARY CONSULTATION CONSULTING PHYSICIAN: Hiren De La Paz M.D. REFERRING PHYSICIAN: Andreia Roy M.D. REASON FOR CONSULTATION: Respiratory failure. HISTORY OF PRESENT ILLNESS: The patient is a 38-year-old male with HIV recently back on anti-retroviral treatment, who presented to the ER with approximately 2 weeks of cough, congestion, and shortness of breath. The patient has been having shortness of breath, cough, congestion, fevers, chills, generalized malaise. He states he was diagnosed with AIDS 10 years ago on routine testing. His CD4 count was below 200 when he was first diagnosed. He was on multiple medications for years, but for the past few years has been off of medications all together recently. He saw an HIV specialist and was started on Genvoya which he has been taking. He is unsure of his current CD4 count or viral load. He presented to the ER. Since coming here, T-max of 101.9. Vital signs have otherwise been stable except for periods of tachypnea and he was placed on BiPAP. He is now on a Venturi mask. He refused BiPAP and is actually feeling better. His white count was 3.4 on presentation. ABG was not done. LDH was also not done. Chest x-ray upon my review shows patchy bilateral infiltrates. The patient was started on Rocephin and azithromycin. PAST MEDICAL HISTORY: 1. AIDS. 2. GERD, gastritis. PAST SURGICAL HISTORY: Facial laceration repair. ALLERGIES: No known drug allergies. MEDICATIONS: Prior to admission, medications reviewed. Current medications reviewed. SOCIAL HISTORY: He is from [place]. He has sex with men and women. He received HIV via sexual transmission. No IV drug use. Occasional tobacco. Occasional marijuana. No significant alcohol use. FAMILY HISTORY: Noncontributory. REVIEW OF SYSTEMS: Negative other than history of present illness. PHYSICAL EXAMINATION: VITAL SIGNS: Temperature 98.1, pulse 95, blood pressure 110/81, respiratory rate 37. He is on 7 liters venturi mask. GENERAL: He is a well-developed, well-nourished male, in mild respiratory distress HEENT: Normocephalic and atraumatic. Oropharynx is clear with moist mucous membranes. NECK: Supple without lymphadenopathy or jugular venous distention. CHEST: Scattered coarse breath sounds. HEART: Regular rate and rhythm. ABDOMEN: Soft, nontender, and nondistended. EXTREMITIES: No cyanosis, clubbing, or edema. LABORATORY AND DIAGNOSTIC DATA: Flu from the ER is negative. White count 3.4, hemoglobin 12.8, and platelet count 274. Sodium 132, potassium 4.3, chloride 97, bicarbonate 26, BUN 16, creatinine 0.9, glucose 85, calcium 8.8. Total bilirubin 0.4, AST 98, ALT 22, and alkaline phosphatase 126. Troponin negative. Total protein 7.9, albumin 2. Urinalysis, 3+ protein, 1+ ketones, 1+ urobilinogen, 1+ leukocyte esterase. Rapid flu as I said was negative. Chest x-ray, scattered bilateral patchy infiltrates. ASSESSMENT: The patient is a 38-year-old male with a history of AIDS presenting with respiratory illness with bilateral infiltrates concerning for community-acquired pneumonia versus PJP pneumonia or other opportunistic infections. At this time, he is off of BiPAP and somewhat improved. He is on appropriate treatment for CAP. I will start him empirically on Bactrim and steroids while awaiting LDH, ABG, PCP DFA. PROBLEM LIST: 1. Bilateral pulmonary infiltrates, CAP versus PJP pneumonia versus other opportunistic infection or atypical infection. 2. AIDS, recently back on antiretroviral therapy. 3. Leukopenia. 4. Anemia. 5. Pyuria. 6. Hypoxemic respiratory failure secondary to above treatment. TREATMENT PLAN: 1. Optimize pulmonary hygiene/mobilize as tolerated. 2. Titrate down FiO2 to keep saturations greater than 90%. 3. Check a CT chest. 4. LDH, ABG, PCP, DFA, sputum culture, blood cultures. 5. Continue Rocephin and azithromycin. 6. I will start the patient on prednisone 40 mg p.o. b.i.d. and Bactrim pending PJP studies. 7. Ckazb-axg-mcnsq and p.r.n. bronchodilators. 8. Aspiration precautions. 9. Monitor volumes and renal function. 10. DVT prophylaxis, heparin subcutaneous. 11. Continue anti-retroviral therapy. 12. Infectious Diseases evaluation. Dr. Roy, thank you for allowing me to assist in the care of your patient. Hiren De La Paz M.D. DR: Giovanna JOB#: [id number] CC:
--- NOTE | 2018-04-30 13:13 | Consultation ---
DATE OF CONSULTATION: 04/29/2018 INFECTIOUS DISEASE CONSULTATION CONSULTING PHYSICIAN: Reginald Kiran M.D. PRIMARY ATTENDING PHYSICIAN: Andreia Roy M.D. REASON FOR CONSULT: Pneumonia, HIV/AIDS. HISTORY OF PRESENT ILLNESS: The patient is a 38-year-old male admitted yesterday because of shortness of breath, cough, congestion, fatigue, and decreased appetite. The patient has a history of HIV/AIDS, noncompliant with medication. Has limited source of history, does not remember well shortness of breath. PAST MEDICAL HISTORY: HIV since age of 23, AIDS in the past couple of years. CD4 count was less than 20 according to outside physician, that I discussed the matter. He has history of asthma and seizure disorder. ALLERGIES: No known drug allergies. MEDICATIONS: Bactrim, heparin, prednisone, ceftriaxone, azithromycin, albuterol and ipratropium inhalers, and Colace. a dose of rectal hydrocortisone for hemorrhoids and Tylenol. SOCIAL HISTORY: Single, lives with sister. He has history of alcohol abuse, history of smoking. He states quit smoking three months ago. REVIEW OF SYSTEMS: He has congestion, productive cough, subjective fever, and decreased appetite. No abdominal pain. No problem passing urine. PHYSICAL EXAMINATION: VITAL SIGNS: T-max is 101.9, current temperature 99.7, pulse 107, respiratory rate 37, and blood pressure 111/89. Oxygen saturation at the time of admission was 75%. GENERAL APPEARANCE: Seems to be thin, likely had weight loss. HEAD AND NECK: Junction conjunctivae. No oral lesion. HEART: S1, S2. Tachycardic. Regular. LUNGS: Tachypneic, few rales. ABDOMEN: Soft and nontender. EXTREMITIES: No edema. Has muscle atrophy. NEUROLOGIC: Awake and alert, ambulatory to the bathroom. LABORATORY DATA: WBC is 3.4, hemoglobin 12.8, hematocrit 38.1, and platelets 274. Sodium 132, potassium 4.3, chloride 97, bicarbonate 26, BUN 16, and creatinine 0.9. Glucose 85. AST 98, alkaline phosphatase is 126. Albumin is 2. Influenza A and B test was negative. Chest x-ray showed bilateral infiltrates. IMPRESSION: 1. Bilateral pneumonia. 2. Human immunodeficiency virus/AIDS. 3. Hypoxemia. 4. Protein malnutrition. 5. Noncompliance with medication. RECOMMENDATION: We will continue with ceftriaxone and Zithromax. We will start treatment for PCP. Sputum for PCP was requested. We will follow up the culture and we will follow up CT scan of the chest. At the end of my exam, I thank Dr. Roy for involving me in the care of this patient. Reginald Kiran M.D. DR: JETHRO JOB#: [id number] CC: THO
--- NOTE | 2018-04-30 13:14 | History and Physical Report ---
DATE OF ADMISSION: 04/28/2018 HISTORY OF PRESENT ILLNESS: The patient admitted for pneumonia, pulmonary edema, and shortness of breath. The patient did not want to answer my questions, states that "I don't want to answer any more questions." So, I could not obtain detailed history. The patient's history is obtained by reading from the chart. The patient apparently has some cough and congestion as well as has had fatigue. The patient did deny nausea, vomiting, or diarrhea. The patient reported he did had abdominal pain apparently according to the ER doctor's note. The patient denies nausea or vomiting. The patient also apparently has history of HIV and alcohol abuse. The patient had leukopenia, had drop in neutrophil and white count. PAST MEDICAL HISTORY: History of asthma, history of seizures, history of HIV, and hemorrhoids. PAST SURGICAL HISTORY: He did have some face surgery and neck surgery. SOCIAL HISTORY: Apparently, denies history of smoking, alcohol, or drug abuse. REVIEW OF SYSTEMS: Unable to obtain. The patient does not want to answer my questions. PHYSICAL EXAMINATION: VITAL SIGNS: Temperature 100.2 degrees, pulse is 110, and blood pressure is 122/82. HEENT: PERRLA. NECK: Supple. No lymphadenopathy. CHEST: Bibasilar rales. CARDIOVASCULAR: Tachycardic. GASTROINTESTINAL: Soft, nontender, and nondistended. No organomegaly. EXTREMITIES: No edema. Reflexes are equal on both sides. Moves all four extremities. Sensation is intact to light touch. LABORATORY DATA: WBC of 3.4, hemoglobin 12.8, and platelets of 274,000. Sodium 132, potassium 4.3, BUN of 16, creatinine 0.9, and glucose of 85. ASSESSMENT AND PLAN: Pneumonia on the chest x-ray, leukopenia, history of HIV, and alcohol abuse. Apparently, does have history of alcohol abuse, pneumonia, and possible pulmonary congestion on the chest x-ray. I have asked Dr. Eric, Dr. Reginald Kiran, Dr. Weiner, Dr. De La Paz, and Dr. Almaguer to see the patient for the above-mentioned diagnoses and treatment. Andreia Roy M.D. DR: PATRICIA JOB#: [id number] CC:
[2018-04-30] MEDS: Azithromycin 250mg tab ORAL SCH (13:37)
[2018-04-30] MEDS: cefTRIAXone 1 GM in D5W 55 ML IVPB SCH (13:37)
--- NOTE | 2018-04-30 13:51 | NUR ---
*-* INSURANCE *-* ALL CLINICALS, REVIEWS AND INTERQUAL HAVE BEEN FAXED: VANESSA[employer] PLEASE FAX THE REVIEW/ CLINICAL NO GRINDING MACHINE TENDER ASSIGNED AT THIS TIME.. P- [phone] F- [phone]... Addendum: 04/30/18 at 1503 by TYLER MONTELONGO CM ABIGAIL:DALE P:[phone]
--- NOTE | 2018-04-30 14:07 | General Progress Note ---
Assessment/Plan Problem List: (1) Depressive disorder ICD Codes: F32.9 - Major depressive disorder, single episode, unspecified SNOMED: 72526992 Assessment/Plan seroquel standing seroquel prn the pt lacks capacity Subjective Neurologic/Psychiatric: Reports: anxiety, depressed Allergies: Coded Allergies: No Known Allergies (Unverified , 04/28/18) Objective Last 24 Hour Vital Signs Date Time Temp Pulse Resp B/P (MAP) Pulse Ox O2 Delivery O2 Flow Rate FiO2 04/30/18 13:11 Venturi Mask 04/30/18 13:11 Venturi Mask 04/30/18 12:00 8.0 40 04/30/18 12:00 Venturi Mask 8.0 04/30/18 12:00 97.0 85 30 99/72 (81) 98 04/30/18 08:00 8.0 40 04/30/18 08:00 Venturi Mask 8.0 04/30/18 08:00 97.0 98 26 118/86 (97) 98 04/30/18 08:00 96 04/30/18 07:02 84 20 96 Venturi Mask 10.0 45 04/30/18 07:02 84 22 95 Venturi Mask 10.0 45 04/30/18 07:02 96 Venturi Mask 10.0 45 04/30/18 07:02 Venturi Mask 10.0 45 04/30/18 04:00 8.0 40 04/30/18 04:00 71 04/30/18 04:00 Venturi Mask 8.0 04/30/18 04:00 97.4 73 26 106/60 (75) 94 04/30/18 01:16 89 20 97 Venturi Mask 10.0 45 04/30/18 01:11 87 22 94 Venturi Mask 10.0 45 04/30/18 00:00 68 04/30/18 00:00 Venturi Mask 8.0 04/30/18 00:00 8.0 40 04/30/18 00:00 Venturi Mask 8.0 04/30/18 00:00 8.0 40 04/30/18 00:00 Venturi Mask 8.0 04/30/18 00:00 99.0 73 24 99/60 (73) 97 04/29/18 20:29 98 25 95 Venturi Mask 10.0 45 04/29/18 20:20 97 26 92 Venturi Mask 8.0 40 04/29/18 20:00 99.1 101 25 103/66 (78) 96 04/29/18 20:00 Venturi Mask 8.0 04/29/18 20:00 8.0 40 04/29/18 20:00 103 04/29/18 19:50 Venturi Mask 10.0 45 04/29/18 19:50 96 Venturi Mask 10.0 45 04/29/18 16:00 Venturi Mask 8.0 04/29/18 16:00 8.0 40 04/29/18 16:00 100.2 110 20 127/82 (97) 96 04/29/18 15:47 102 Intake and Output 04/29/18 04/30/18 18:59 06:59 Intake Total 865 ml 760 ml Output Total 620 ml 800 ml Balance 245 ml -40 ml Intake Oral 240 ml IV Total 625 ml 760 ml Output Urine Total 620 ml 800 ml # Bowel Movements 3 5 Laboratory Tests 04/30/18 03:45: Sodium Level 132L, Potassium Level 4.1, Chloride Level 100, Carbon Dioxide Level 24, Anion Gap 8, Blood Urea Nitrogen 12, Creatinine 0.8, Estimat Glomerular Filtration Rate > 60, Glucose Level 147H, Hemoglobin A1c 5.4, Osmolality 281L, Uric Acid 2.5L, Calcium Level 9.0, Phosphorus Level 4.4, Magnesium Level 2.1, Iron Level 31L, Total Iron Binding Capacity 64L, Percent Iron Saturation 48, Unsaturated Iron Binding 33L, Ferritin 1382H, Total Bilirubin 0.2, Aspartate Amino Transf (AST/SGOT) 59H, Alanine Aminotransferase ( ALT/SGPT) 13, Alkaline Phosphatase 100, C-Reactive Protein, Quantitative 25.2H, Pro-B-Type Natriuretic Peptide 142H, Total Protein 7.3, Albumin 1.6L, Globulin 5.7, Albumin/Globulin Ratio 0.3L, Triglycerides Level 76, Cholesterol Level 50, LDL Cholesterol 28, HDL Cholesterol 10L, Cholesterol/HDL Ratio 5.0H, Vitamin B12 Level 1520H, Folate 3.2L, Thyroid Stimulating Hormone (TSH) 1.666 Height (Feet): 5 Height (Inches): 6.00 Weight (Pounds): 130 General Appearance: no apparent distress, alert Neurologic: oriented x 3, responsive, depressed affect Elver Almaguer MD Apr 30, 2018 14:07
--- NOTE | 2018-04-30 14:41 | Nephrology Progress Note ---
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 AIDs Nephropathy Sz Asthma HIV / AIDS Anemia Low Na Plan 24 H urine Protein being collected Anemia cotter, low folate low bp start Midodrine U os and S os for eval of low Na per orders Subjective ROS Limited/Unobtainable: No Constitutional: Reports: malaise, weakness Objective Objective Last 24 Hour Vital Signs Date Time Temp Pulse Resp B/P (MAP) Pulse Ox O2 Delivery O2 Flow Rate FiO2 04/30/18 13:11 Venturi Mask 04/30/18 13:11 Venturi Mask 04/30/18 12:00 8.0 40 04/30/18 12:00 87 04/30/18 12:00 Venturi Mask 8.0 04/30/18 12:00 97.0 85 30 99/72 (81) 98 04/30/18 08:00 8.0 40 04/30/18 08:00 Venturi Mask 8.0 04/30/18 08:00 97.0 98 26 118/86 (97) 98 04/30/18 08:00 96 04/30/18 07:02 84 20 96 Venturi Mask 10.0 45 04/30/18 07:02 84 22 95 Venturi Mask 10.0 45 04/30/18 07:02 96 Venturi Mask 10.0 45 04/30/18 07:02 Venturi Mask 10.0 45 04/30/18 04:00 8.0 40 04/30/18 04:00 71 04/30/18 04:00 Venturi Mask 8.0 04/30/18 04:00 97.4 73 26 106/60 (75) 94 04/30/18 01:16 89 20 97 Venturi Mask 10.0 45 04/30/18 01:11 87 22 94 Venturi Mask 10.0 45 04/30/18 00:00 68 04/30/18 00:00 Venturi Mask 8.0 04/30/18 00:00 8.0 40 04/30/18 00:00 Venturi Mask 8.0 04/30/18 00:00 8.0 40 04/30/18 00:00 Venturi Mask 8.0 04/30/18 00:00 99.0 73 24 99/60 (73) 97 04/29/18 20:29 98 25 95 Venturi Mask 10.0 45 04/29/18 20:20 97 26 92 Venturi Mask 8.0 40 04/29/18 20:00 99.1 101 25 103/66 (78) 96 04/29/18 20:00 Venturi Mask 8.0 04/29/18 20:00 8.0 40 04/29/18 20:00 103 04/29/18 19:50 Venturi Mask 10.0 45 04/29/18 19:50 96 Venturi Mask 10.0 45 04/29/18 16:00 Venturi Mask 8.0 04/29/18 16:00 8.0 40 04/29/18 16:00 100.2 110 20 127/82 (97) 96 04/29/18 15:47 102 Intake and Output 04/29/18 04/30/18 18:59 06:59 Intake Total 865 ml 760 ml Output Total 620 ml 800 ml Balance 245 ml -40 ml Intake Oral 240 ml IV Total 625 ml 760 ml Output Urine Total 620 ml 800 ml # Bowel Movements 3 5 Laboratory Tests 04/30/18 03:45: Sodium Level 132L, Potassium Level 4.1, Chloride Level 100, Carbon Dioxide Level 24, Anion Gap 8, Blood Urea Nitrogen 12, Creatinine 0.8, Estimat Glomerular Filtration Rate > 60, Glucose Level 147H, Hemoglobin A1c 5.4, Osmolality 281L, Uric Acid 2.5L, Calcium Level 9.0, Phosphorus Level 4.4, Magnesium Level 2.1, Iron Level 31L, Total Iron Binding Capacity 64L, Percent Iron Saturation 48, Unsaturated Iron Binding 33L, Ferritin 1382H, Total Bilirubin 0.2, Aspartate Amino Transf (AST/SGOT) 59H, Alanine Aminotransferase ( ALT/SGPT) 13, Alkaline Phosphatase 100, C-Reactive Protein, Quantitative 25.2H, Pro-B-Type Natriuretic Peptide 142H, Total Protein 7.3, Albumin 1.6L, Globulin 5.7, Albumin/Globulin Ratio 0.3L, Triglycerides Level 76, Cholesterol Level 50, LDL Cholesterol 28, HDL Cholesterol 10L, Cholesterol/HDL Ratio 5.0H, Vitamin B12 Level 1520H, Folate 3.2L, Thyroid Stimulating Hormone (TSH) 1.666 Height (Feet): 5 Height (Inches): 6.00 Weight (Pounds): 130 General Appearance: no apparent distress Objective no change Lukasz Eric MD Apr 30, 2018 14:40
--- NOTE | 2018-04-30 14:50 | Pulmonology Progress Note ---
Assessment/Plan Problems: (1) Opportunistic infection (2) Lung nodule, multiple (3) Ground glass opacity present on imaging of lung (4) Pneumonia (5) AIDS Assessment/Plan ASSESSMENT: The patient is a 38-year-old male with a history of AIDS (CD4 count 18) presenting with respiratory illness with bilateral infiltrates, GGO's and scattered nodular opacities concerning for possible PJP pneumonia versus other typical or atypical infectious process of OI. empirically on Bactrim and steroids while awaiting LDH, ABG, PCP DFA. PROBLEM LIST: 1. Bilateral pulmonary infiltrates, CAP versus PJP pneumonia versus other opportunistic infection or atypical infection. 2. Scattered GGO's and pulmonary nodules, likely infectious, possible underlying neoplastic process 2. AIDS (CD4 count 18), recently back on antiretroviral therapy. 3. Leukopenia. 4. Anemia. 5. Pyuria. 6. GERD TREATMENT PLAN: 1. Optimize pulmonary hygiene/mobilize as tolerated. 2. Titrate down FiO2 to keep saturations greater than 90%. 3. O2 needs too high for bronchoscopy without intubation 4. F/U PJP DFA, cocci, crypto, histo urine Ag, galactomannan, 1,3-B-G (sent to ), quant gold and Cx's 5. Abx (CTx, Azithro, IV TMP-SMX) per ID, cART per ID 6. Continue Pred 40 TID 7. Fakhl-pql-iqxpp and p.r.n. bronchodilators. 8. Aspiration precautions. 9. Parenchymal nodules need to be followed to resolution or biopsied to R/O neoplastic process 10. DVT prophylaxis, heparin subcutaneous. 11. Monitor volumes and renal function Subjective Allergies: Coded Allergies: No Known Allergies (Unverified , 04/28/18) Subjective Tm 100.2 98% on VM CD 4 18, LDH 1168, 7.45/31/87/21/95 CT diffuse GGO's, scattered nodular densities, biapical blebs/bullae, ectatic PA Feels better, less SOB, + cough/PALLIATIVE CARE NURSE PRACTITIONER, no CP, no FC, + BRIGGS Objective Last 24 Hour Vital Signs Date Time Temp Pulse Resp B/P (MAP) Pulse Ox O2 Delivery O2 Flow Rate FiO2 04/30/18 13:11 Venturi Mask 04/30/18 13:11 Venturi Mask 04/30/18 12:00 8.0 40 04/30/18 12:00 87 04/30/18 12:00 Venturi Mask 8.0 04/30/18 12:00 97.0 85 30 99/72 (81) 98 04/30/18 08:00 8.0 40 04/30/18 08:00 Venturi Mask 8.0 04/30/18 08:00 97.0 98 26 118/86 (97) 98 04/30/18 08:00 96 04/30/18 07:02 84 20 96 Venturi Mask 10.0 45 04/30/18 07:02 84 22 95 Venturi Mask 10.0 45 04/30/18 07:02 96 Venturi Mask 10.0 45 04/30/18 07:02 Venturi Mask 10.0 45 04/30/18 04:00 8.0 40 04/30/18 04:00 71 04/30/18 04:00 Venturi Mask 8.0 04/30/18 04:00 97.4 73 26 106/60 (75) 94 04/30/18 01:16 89 20 97 Venturi Mask 10.0 45 04/30/18 01:11 87 22 94 Venturi Mask 10.0 45 04/30/18 00:00 68 04/30/18 00:00 Venturi Mask 8.0 04/30/18 00:00 8.0 40 04/30/18 00:00 Venturi Mask 8.0 04/30/18 00:00 8.0 40 04/30/18 00:00 Venturi Mask 8.0 04/30/18 00:00 99.0 73 24 99/60 (73) 97 04/29/18 20:29 98 25 95 Venturi Mask 10.0 45 04/29/18 20:20 97 26 92 Venturi Mask 8.0 40 04/29/18 20:00 99.1 101 25 103/66 (78) 96 04/29/18 20:00 Venturi Mask 8.0 04/29/18 20:00 8.0 40 04/29/18 20:00 103 04/29/18 19:50 Venturi Mask 10.0 45 04/29/18 19:50 96 Venturi Mask 10.0 45 04/29/18 16:00 Venturi Mask 8.0 04/29/18 16:00 8.0 40 04/29/18 16:00 100.2 110 20 127/82 (97) 96 04/29/18 15:47 102 Intake and Output 04/29/18 04/30/18 19:00 07:00 Intake Total 865 ml 760 ml Output Total 620 ml 800 ml Balance 245 ml -40 ml Intake Oral 240 ml IV Total 625 ml 760 ml Output Urine Total 620 ml 800 ml # Bowel Movements 3 5 General Appearance: WD/WN, no acute distress HEENT: normocephalic, atraumatic, anicteric, mucous membranes moist Respiratory/Chest: rhonchi Cardiovascular: normal peripheral pulses, normal rate, regular rhythm Abdomen: normal bowel sounds, soft, non tender, no organomegaly, non distended , no mass Extremities: no cyanosis, no clubbing, no edema Microbiology Date/Time Source Procedure Growth Status 04/28/18 11:40 Blood Blood Culture - Preliminary NO GROWTH AFTER 24 HOURS Resulted 04/28/18 11:30 Blood Blood Culture - Preliminary NO GROWTH AFTER 24 HOURS Resulted 04/28/18 11:30 Nasal Nares Influenza Types A,B Antigen (BREEZY) - Final Complete Laboratory Tests 04/30/18 03:45: Sodium Level 132L, Potassium Level 4.1, Chloride Level 100, Carbon Dioxide Level 24, Anion Gap 8, Blood Urea Nitrogen 12, Creatinine 0.8, Estimat Glomerular Filtration Rate > 60, Glucose Level 147H, Hemoglobin A1c 5.4, Osmolality 281L, Uric Acid 2.5L, Calcium Level 9.0, Phosphorus Level 4.4, Magnesium Level 2.1, Iron Level 31L, Total Iron Binding Capacity 64L, Percent Iron Saturation 48, Unsaturated Iron Binding 33L, Ferritin 1382H, Total Bilirubin 0.2, Aspartate Amino Transf (AST/SGOT) 59H, Alanine Aminotransferase ( ALT/SGPT) 13, Alkaline Phosphatase 100, C-Reactive Protein, Quantitative 25.2H, Pro-B-Type Natriuretic Peptide 142H, Total Protein 7.3, Albumin 1.6L, Globulin 5.7, Albumin/Globulin Ratio 0.3L, Triglycerides Level 76, Cholesterol Level 50, LDL Cholesterol 28, HDL Cholesterol 10L, Cholesterol/HDL Ratio 5.0H, Vitamin B12 Level 1520H, Folate 3.2L, Thyroid Stimulating Hormone (TSH) 1.666 Current Medications Medications (Trade) Dose Ordered Sig/Garrick Route PRN Reason Start Time Stop Time Status Last Admin Dose Admin Acetaminophen (Tylenol) 500 mg Q4H PRN ORAL Mild Pain/Temp > 100.5 04/28/18 18:00 05/28/18 17:59 04/30/18 11:20 Albuterol/ Ipratropium (Albuterol/ Ipratropium) 3 ml Q4H PRN HHN Shortness of Breath 04/29/18 10:00 05/04/18 09:59 Albuterol/ Ipratropium (Albuterol/ Ipratropium) 3 ml Q6HRT HHN 04/29/18 13:00 05/04/18 12:59 04/30/18 01:09 Azithromycin (Zithromax) 250 mg Q24H ORAL 04/29/18 14:00 05/06/18 13:59 04/30/18 13:37 Ceftriaxone Sodium 1 gm/ Dextrose 55 ml @ 110 mls/hr Q24H IVPB 04/29/18 14:00 05/06/18 13:59 04/30/18 13:37 Diazepam (Valium) 10 mg Q2H PRN ORAL For Anxiety 04/29/18 12:31 05/06/18 12:30 Docusate Sodium (Colace) 100 mg TWICE A DAY ORAL 04/29/18 09:00 05/29/18 08:59 04/30/18 09:01 Folic Acid (Folate) 1 mg DAILY ORAL 04/30/18 09:00 05/30/18 08:59 04/30/18 09:01 Heparin Sodium (Porcine) (Heparin 5000 units/ml) 5,000 units EVERY 12 HOURS SUBQ 04/29/18 21:00 05/29/18 20:59 04/30/18 09:04 Hydrocortisone (Anusol HC) 1 applic DAILYPRN PRN RECTAL hemorrhoid 04/28/18 21:00 05/28/18 20:59 04/29/18 11:39 Lidocaine (Xylocaine) 1 applic DAILYPRN PRN TOPIC hemorroidal pain 04/29/18 13:00 05/29/18 12:59 04/29/18 13:37 Midodrine (Pro-Amatine) 2.5 mg THREE TIMES A DAY ORAL 04/30/18 18:00 05/30/18 17:59 Patient Own Medication (Patient's Own Med) 1 ea DAILY ORAL 04/29/18 09:00 05/29/18 08:59 04/30/18 09:00 Prednisone (predniSONE) 40 mg BID ORAL 04/29/18 18:00 05/29/18 17:59 04/30/18 09:01 Thiamine HCl (Vitamin B1) 100 mg DAILY ORAL 04/30/18 09:00 05/30/18 08:59 04/30/18 09:01 Trimethoprim/ Sulfamethoxazole 20 ml/Dextrose 570 ml @ 380 mls/hr Q8HR@0000,0800,1600 IV 04/30/18 00:00 05/07/18 00:00 04/30/18 09:01 Hiren De La Paz MD Apr 30, 2018 14:50
[2018-04-30 16:00] VITALS: BP 105/58
[2018-04-30] MEDS ORDERED: Pantoprazole Inj IVP SCH (16:00)
--- NOTE | 2018-04-30 18:05 | NUR ---
NURSE NOTES: Patiet stable. No distress noted. Calm and cooperative. denies pain or discomfort. Still working on his dinner tray. Will continue to monitor patient.
--- NOTE | 2018-04-30 19:05 | NUR ---
NURSE NOTES: Received report from Pauline Arias RN. Patient is awake in bed, A/O x4. No s/s of acute distress noted at this time. Sinus rhythm on cardiac exercise specialist. Saturating well on Venturi mask 8L O2, FiO2 40%. Right AC 20g IV saline lock, intact and patent. Bed locked in lowest position with padded side rails up x3. Call light left within reach. Will continue to monitor.
[2018-04-30 20:00] VITALS: BP 112/74
--- NOTE | 2018-04-30 20:35 | General Progress Note ---
Assessment/Plan Problem List: (1) Dyspnea ICD Codes: R06.00 - Dyspnea, unspecified SNOMED: 598811535 (2) Pneumonia ICD Codes: J18.9 - Pneumonia, unspecified organism SNOMED: 674289267 (3) Pulmonary edema ICD Codes: J81.1 - Chronic pulmonary edema SNOMED: 64741327 (4) AIDS nephropathy ICD Codes: B20 - Human immunodeficiency virus [HIV] disease; N28.9 - Disorder of kidney and ureter, unspecified SNOMED: 73789553, 132040045 (5) AIDS ICD Codes: B20 - Human immunodeficiency virus [HIV] disease SNOMED: 70539306 (6) Hypoalbuminemia ICD Codes: E88.09 - Other disorders of plasma-protein metabolism, not elsewhere classified SNOMED: 848510669 (7) Ground glass opacity present on imaging of lung ICD Codes: R91.8 - Other nonspecific abnormal finding of lung field SNOMED: 719934322 Status: not improved Assessment/Plan pna hiv wasting syndrome obs severe hypoxia not stable for dc poor prognosis pulm edema Subjective ROS Limited/Unobtainable: Yes Allergies: Coded Allergies: No Known Allergies (Unverified , 04/28/18) Objective Last 24 Hour Vital Signs Date Time Temp Pulse Resp B/P (MAP) Pulse Ox O2 Delivery O2 Flow Rate FiO2 04/30/18 20:00 Venturi Mask 8.0 04/30/18 20:00 8.0 40 04/30/18 19:59 90 28 98 Venturi Mask 10.0 45 04/30/18 19:38 88 28 98 Venturi Mask 10.0 45 04/30/18 19:37 Venturi Mask 10.0 45 04/30/18 19:37 98 Venturi Mask 10.0 45 04/30/18 16:00 97.9 93 30 105/58 (74) 98 04/30/18 16:00 Venturi Mask 8.0 04/30/18 16:00 8.0 40 04/30/18 16:00 93 04/30/18 13:11 Venturi Mask 04/30/18 13:11 Venturi Mask 04/30/18 12:00 8.0 40 04/30/18 12:00 87 04/30/18 12:00 Venturi Mask 8.0 04/30/18 12:00 97.0 85 30 99/72 (81) 98 04/30/18 08:00 8.0 40 04/30/18 08:00 Venturi Mask 8.0 04/30/18 08:00 97.0 98 26 118/86 (97) 98 04/30/18 08:00 96 04/30/18 07:02 84 20 96 Venturi Mask 10.0 45 04/30/18 07:02 84 22 95 Venturi Mask 10.0 45 04/30/18 07:02 96 Venturi Mask 10.0 45 04/30/18 07:02 Venturi Mask 10.0 45 04/30/18 04:00 8.0 40 04/30/18 04:00 71 04/30/18 04:00 Venturi Mask 8.0 04/30/18 04:00 97.4 73 26 106/60 (75) 94 04/30/18 01:16 89 20 97 Venturi Mask 10.0 45 04/30/18 01:11 87 22 94 Venturi Mask 10.0 45 04/30/18 00:00 68 04/30/18 00:00 Venturi Mask 8.0 04/30/18 00:00 8.0 40 04/30/18 00:00 Venturi Mask 8.0 04/30/18 00:00 8.0 40 04/30/18 00:00 Venturi Mask 8.0 04/30/18 00:00 99.0 73 24 99/60 (73) 97 Intake and Output 04/29/18 04/30/18 18:59 06:59 Intake Total 865 ml 760 ml Output Total 620 ml 800 ml Balance 245 ml -40 ml Intake Oral 240 ml IV Total 625 ml 760 ml Output Urine Total 620 ml 800 ml # Bowel Movements 3 5 Laboratory Tests 04/30/18 03:45: Sodium Level 132L, Potassium Level 4.1, Chloride Level 100, Carbon Dioxide Level 24, Anion Gap 8, Blood Urea Nitrogen 12, Creatinine 0.8, Estimat Glomerular Filtration Rate > 60, Glucose Level 147H, Hemoglobin A1c 5.4, Osmolality 281L, Uric Acid 2.5L, Calcium Level 9.0, Phosphorus Level 4.4, Magnesium Level 2.1, Iron Level 31L, Total Iron Binding Capacity 64L, Percent Iron Saturation 48, Unsaturated Iron Binding 33L, Ferritin 1382H, Total Bilirubin 0.2, Aspartate Amino Transf (AST/SGOT) 59H, Alanine Aminotransferase ( ALT/SGPT) 13, Alkaline Phosphatase 100, C-Reactive Protein, Quantitative 25.2H, Pro-B-Type Natriuretic Peptide 142H, Total Protein 7.3, Albumin 1.6L, Globulin 5.7, Albumin/Globulin Ratio 0.3L, Triglycerides Level 76, Cholesterol Level 50, LDL Cholesterol 28, HDL Cholesterol 10L, Cholesterol/HDL Ratio 5.0H, Vitamin B12 Level 1520H, Folate 3.2L, Thyroid Stimulating Hormone (TSH) 1.666 04/30/18 19:15: Coccidioides Antibody (Comp Fix) [Pending], Cytomegalovirus IgG Antibody [ Pending], Histoplasma Mycelial Antibody [Pending], Histoplasma Antibody w Mycelial Ag [Pending], Histoplasma Antibody with Yeast Ag [Pending], Aspergillus galactomannan Antigen [Pending] Height (Feet): 5 Height (Inches): 6.00 Weight (Pounds): 130 Cardiovascular: normal rate Respiratory/Chest: lungs clear Abdomen: soft Andreia Roy MD Apr 30, 2018 20:35
[2018-05-01] VITALS: BP 94/66
[2018-05-01] MEDS: Acetaminophen 500mg (ES) tab ORAL PRN (00:16)
[2018-05-01] MEDS: Albuterol/Ipratropium 3ml neb HHN SCH ×4 (01:12→20:10)
[2018-05-01 04:00] VITALS: BP 100/70
[2018-05-01 06:12] LABS: ALANINE AMINOTRANSFERASE 13 U/L (12-78); ALBUMIN 1.7 G/DL (3.4-5.0); ALBUMIN/GLOBULIN RATIO 0.3 (1.0-2.7); ALKALINE PHOSPHATASE 93 U/L (46-116); ANION GAP 9 mmol/L (5-15); ASPARTATE AMINO TRANSFERASE 48 U/L (15-37); BILIRUBIN,TOTAL 0.1 MG/DL (0.2-1.0); BLOOD UREA NITROGEN 14 mg/dL (7-18); CALCIUM 8.8 MG/DL (8.5-10.1); CARBON DIOXIDE 22 MMOL/L (21-32); CHLORIDE 99 MMOL/L (98-107); PHOSPHORUS 4.1 MG/DL (2.5-4.9); POTASSIUM 4.2 MMOL/L (3.5-5.1); SODIUM 130 MMOL/L (136-145)
--- NOTE | 2018-05-01 07:30 | NUR ---
HAND-OFF: Report given to Joe Varela RN.
[2018-05-01 08:00] VITALS: BP 103/73
--- NOTE | 2018-05-01 08:02 | NUR ---
NURSE NOTES: Received patient from Sloan Currie RN. Patient is awake, oriented, and able to verbalize needs. Patient is receiving O2 via Venturi mask at 10L/min FiO2 at 45%. Right AC 20 gauge saline lock intact. Bed is locked, placed in lowest position, call light within reach, side rails up x2. All needs attended to, will continue to monitor.
[2018-05-01] MEDS: Bactrim 20ml in D5W 550ml IV SCH ×4 (08:11→16:12)
[2018-05-01] MEDS ORDERED: Pantoprazole Inj IVP SCH (09:00)
[2018-05-01] MEDS: Docusate 100mg cap ORAL SCH ×2 (09:21→17:37)
[2018-05-01] MEDS: Thiamine 100mg tab ORAL SCH (09:21)
[2018-05-01] MEDS: GENVOYA ORAL SCH (09:22)
[2018-05-01] MEDS: Heparin 5000 units/ml inj SUBQ SCH ×2 (09:23→20:56)
--- NOTE | 2018-05-01 10:22 | Infectious Diseases Prog Note ---
Assessment/Plan Assessment/Plan antibiotics : ceftriaxone, azithromycin, iv bactrim A 1. pneumonia r/o PCP, increased LDH 2. AIDS, cd4 18 3. seizures 4. asthma P 1. continue ceftriaxone, azithromycin 2. continue bactrim iv, steroids 3. will follow up cultures 4. consider bronchoscopy Subjective Constitutional: Denies: fever, chills Respiratory: Reports: shortness of breath - decreased, dry cough - decreased Gastrointestinal/Abdominal: Denies: nausea, vomiting, diarrhea Musculoskeletal: Denies: pain Allergies: Coded Allergies: No Known Allergies (Unverified , 04/28/18) Objective Vital Signs Last 24 Hour Vital Signs Date Time Temp Pulse Resp B/P (MAP) Pulse Ox O2 Delivery O2 Flow Rate FiO2 05/01/18 07:30 83 22 98 Venturi Mask 10.0 45 05/01/18 07:27 97 Venturi Mask 10.0 45 05/01/18 07:27 Venturi Mask 10.0 45 05/01/18 07:23 84 22 97 Venturi Mask 10.0 45 05/01/18 04:08 87 05/01/18 04:00 8.0 40 05/01/18 04:00 97.7 93 28 100/70 (80) 96 05/01/18 04:00 Venturi Mask 8.0 05/01/18 01:25 88 24 98 Venturi Mask 10.0 45 05/01/18 01:10 77 24 97 Venturi Mask 10.0 45 05/01/18 00:00 97.3 75 28 94/66 (75) 96 05/01/18 00:00 Venturi Mask 8.0 04/30/18 23:39 87 04/30/18 20:00 Venturi Mask 8.0 04/30/18 20:00 97.9 96 32 112/74 (87) 95 04/30/18 20:00 8.0 40 04/30/18 19:59 90 28 98 Venturi Mask 10.0 45 04/30/18 19:43 92 04/30/18 19:38 88 28 98 Venturi Mask 10.0 45 04/30/18 19:37 Venturi Mask 10.0 45 04/30/18 19:37 98 Venturi Mask 10.0 45 04/30/18 16:00 97.9 93 30 105/58 (74) 98 04/30/18 16:00 Venturi Mask 8.0 04/30/18 16:00 8.0 40 04/30/18 16:00 93 04/30/18 13:11 Venturi Mask 04/30/18 13:11 Venturi Mask 04/30/18 12:00 8.0 40 04/30/18 12:00 87 04/30/18 12:00 Venturi Mask 8.0 04/30/18 12:00 97.0 85 30 99/72 (81) 98 Height (Feet): 5 Height (Inches): 6.00 Weight (Pounds): 130 Respiratory/Chest: lungs clear Cardiovascular: normal rate, regular rhythm, no gallop/murmur Abdomen: soft, non tender Extremities: no edema Microbiology Date/Time Source Procedure Growth Status 04/28/18 11:40 Blood Blood Culture - Preliminary NO GROWTH AFTER 48 HOURS Resulted 04/28/18 11:30 Blood Blood Culture - Preliminary NO GROWTH AFTER 48 HOURS Resulted 04/28/18 11:30 Nasal Nares Influenza Types A,B Antigen (BREEZY) - Final Complete Laboratory Tests Test 04/30/18 19:15 05/01/18 03:50 Coccidioides Antibody (Comp Fix) Pending Cytomegalovirus IgG Antibody Pending Histoplasma Mycelial Antibody Pending Histoplasma Antibody w Mycelial Ag Pending Histoplasma Antibody with Yeast Ag Pending Aspergillus galactomannan Antigen Pending Sodium Level 130 MMOL/L (136-145) L Potassium Level 4.2 MMOL/L (3.5-5.1) Chloride Level 99 MMOL/L (98-107) Carbon Dioxide Level 22 MMOL/L (21-32) Anion Gap 9 mmol/L (5-15) Blood Urea Nitrogen 14 mg/dL (7-18) Creatinine 1.0 MG/DL (0.55-1.30) Estimat Glomerular Filtration Rate > 60 mL/min (>60) Glucose Level 107 MG/DL (74-106) H Osmolality 274 mOsm/kg (297-317) L Uric Acid 2.7 MG/DL (2.6-7.2) Calcium Level 8.8 MG/DL (8.5-10.1) Phosphorus Level 4.1 MG/DL (2.5-4.9) Magnesium Level 2.0 MG/DL (1.8-2.4) Total Bilirubin 0.1 MG/DL (0.2-1.0) L Aspartate Amino Transf (AST/SGOT) 48 U/L (15-37) H Alanine Aminotransferase (ALT/SGPT) 13 U/L (12-78) Alkaline Phosphatase 93 U/L (46-116) Total Protein 7.0 G/DL (6.4-8.2) Albumin 1.7 G/DL (3.4-5.0) L Globulin 5.3 g/dL Albumin/Globulin Ratio 0.3 (1.0-2.7) L Current Medications Medications (Trade) Dose Ordered Sig/Garrick Route PRN Reason Start Time Stop Time Status Last Admin Dose Admin Acetaminophen (Tylenol) 500 mg Q4H PRN ORAL Mild Pain/Temp > 100.5 04/28/18 18:00 05/28/18 17:59 05/01/18 00:16 Albuterol/ Ipratropium (Albuterol/ Ipratropium) 3 ml Q4H PRN HHN Shortness of Breath 04/29/18 10:00 05/04/18 09:59 Albuterol/ Ipratropium (Albuterol/ Ipratropium) 3 ml Q6HRT HHN 04/29/18 13:00 05/04/18 12:59 05/01/18 07:23 Azithromycin (Zithromax) 250 mg Q24H ORAL 04/29/18 14:00 05/06/18 13:59 04/30/18 13:37 Ceftriaxone Sodium 1 gm/ Dextrose 55 ml @ 110 mls/hr Q24H IVPB 04/29/18 14:00 05/06/18 13:59 04/30/18 13:37 Diazepam (Valium) 10 mg Q2H PRN ORAL For Anxiety 04/29/18 12:31 05/06/18 12:30 Docusate Sodium (Colace) 100 mg TWICE A DAY ORAL 04/29/18 09:00 05/29/18 08:59 05/01/18 09:21 Folic Acid (Folate) 1 mg DAILY ORAL 04/30/18 09:00 05/30/18 08:59 05/01/18 09:22 Heparin Sodium (Porcine) (Heparin 5000 units/ml) 5,000 units EVERY 12 HOURS SUBQ 04/29/18 21:00 05/29/18 20:59 05/01/18 09:23 Hydrocortisone (Anusol HC) 1 applic DAILYPRN PRN RECTAL hemorrhoid 04/28/18 21:00 05/28/18 20:59 05/01/18 00:17 Lidocaine (Xylocaine) 1 applic DAILYPRN PRN TOPIC hemorroidal pain 04/29/18 13:00 05/29/18 12:59 04/29/18 13:37 Midodrine (Pro-Amatine) 2.5 mg THREE TIMES A DAY ORAL 04/30/18 18:00 05/30/18 17:59 05/01/18 09:21 Pantoprazole (Protonix) 40 mg DAILY IVP 05/01/18 09:00 05/31/18 08:59 05/01/18 09:22 Patient Own Medication (Patient's Own Med) 1 ea DAILY ORAL 04/29/18 09:00 05/29/18 08:59 05/01/18 09:22 Prednisone (predniSONE) 40 mg BID ORAL 04/29/18 18:00 05/29/18 17:59 05/01/18 09:23 Thiamine HCl (Vitamin B1) 100 mg DAILY ORAL 04/30/18 09:00 05/30/18 08:59 05/01/18 09:21 Trimethoprim/ Sulfamethoxazole 20 ml/Dextrose 570 ml @ 380 mls/hr Q8HR@0000,0800,1600 IV 04/30/18 00:00 05/07/18 00:00 05/01/18 08:11 Adrien Roth MD May 01, 2018 10:22
[2018-05-01 12:00] VITALS: BP 115/65
--- NOTE | 2018-05-01 12:17 | NUR ---
NURSE PRIVATE DUTYGAS ATTENDANT SI: PNEUMONIA, PULMONARY EDEMA VS: BP 100/70, P 88, T 97.7, RR 28, SpO2 97 on V.MASK 10.0L FiO2 45 Na 130, Glucose 107, Total Bilirubin 0.1, AST 48, Albumin 1.7 IS: PROTONIX 40mg IVP MIDODRINE 2.5mg TRIMETHOPRIM/ SULFAMETHOXAZOLE 570ml IV HEPARIN SUBQ PREDNISONE 40mg AZITHROMYCIN 250mg CEFTRIAXONE 55ml IVPB ALBUTEROL 3ml HHN SDU STATUS
--- NOTE | 2018-05-01 13:15 | NUR ---
RD ASSESSMENT & RECOMMENDATIONS SEE CARE ACTIVITY FOR COMPLETE ASSESSMENT DAILY ESTIMATED NEEDS: Needs based on Recent wt loss, AIDS/ 55.5kg 30-35 kcals/kg 3601-5205 total kcals 1-1.5 g protein/kg 56-83 g total protein 25-30 mL/kg 3455-9086 total fluid mLs NUTRITION DIAGNOSIS: * Swallowing difficulty R/T respiratory status, dysphagia as evidenced by now of venturi mask, WAREHOUSE LOADER recommends pureed moist texture, NTL at this time. * Increased kcal/prot needs R/T catabolic dx, recent wt loss as evidenced by AIDS Dx, pt reports recent significant wt loss of 6-8lbs/ >5% wt loss in 1 week, currently @ 86% IBW. CURRENT DIET:REGULAR, pureed moist, NTL PO DIET RECOMMENDATIONS: Liberalized REGULAR/ texture per WAREHOUSE LOADER ADDITIONAL RECOMMENDATIONS: * Standing wt as able for accurate CBW * Weekly wt montoring given recent significant wt loss * Ensure Enlive BID in b/w meals (350kcal/ 20g prot per bottle) * Monitor PO intake closely
[2018-05-01] MEDS: Azithromycin 250mg tab ORAL SCH (13:36)
[2018-05-01] MEDS: cefTRIAXone 1 GM in D5W 55 ML IVPB SCH (13:55)
--- NOTE | 2018-05-01 14:17 | Nephrology Progress Note ---
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 AIDs Nephropathy Sz Asthma HIV / AIDS Anemia Low Na Plan 24 H urine Protein being collected under ! gram Albumin followed by Lasix for low Na Anemia cotter, low folate low bp start Midodrine U os and S os for eval of low Na per orders Subjective ROS Limited/Unobtainable: No Constitutional: Reports: malaise Objective Objective Last 24 Hour Vital Signs Date Time Temp Pulse Resp B/P (MAP) Pulse Ox O2 Delivery O2 Flow Rate FiO2 05/01/18 13:59 90 20 95 Nasal Cannula 4.0 36 05/01/18 13:52 98 20 89 Nasal Cannula 4.0 36 05/01/18 12:00 Nasal Cannula 4.0 05/01/18 12:00 77 05/01/18 12:00 97.7 91 18 115/65 (82) 96 05/01/18 12:00 4.0 05/01/18 08:00 Nasal Cannula 4.0 05/01/18 08:00 97.5 95 19 103/73 (83) 96 05/01/18 08:00 95 05/01/18 08:00 10.0 45 05/01/18 07:30 83 22 98 Venturi Mask 10.0 45 05/01/18 07:27 97 Venturi Mask 10.0 45 05/01/18 07:27 Venturi Mask 10.0 45 05/01/18 07:23 84 22 97 Venturi Mask 10.0 45 05/01/18 04:08 87 05/01/18 04:00 8.0 40 05/01/18 04:00 97.7 93 28 100/70 (80) 96 05/01/18 04:00 Venturi Mask 8.0 05/01/18 01:25 88 24 98 Venturi Mask 10.0 45 05/01/18 01:10 77 24 97 Venturi Mask 10.0 45 05/01/18 00:00 97.3 75 28 94/66 (75) 96 05/01/18 00:00 Venturi Mask 8.0 04/30/18 23:39 87 04/30/18 20:00 Venturi Mask 8.0 04/30/18 20:00 97.9 96 32 112/74 (87) 95 04/30/18 20:00 8.0 40 04/30/18 19:59 90 28 98 Venturi Mask 10.0 45 04/30/18 19:43 92 04/30/18 19:38 88 28 98 Venturi Mask 10.0 45 04/30/18 19:37 Venturi Mask 10.0 45 04/30/18 19:37 98 Venturi Mask 10.0 45 04/30/18 16:00 97.9 93 30 105/58 (74) 98 04/30/18 16:00 Venturi Mask 8.0 04/30/18 16:00 8.0 40 04/30/18 16:00 93 Intake and Output 04/30/18 05/01/18 19:00 07:00 Intake Total 200 ml 1080 ml Output Total 1100 ml 800 ml Balance -900 ml 280 ml Intake Oral 200 ml 320 ml IV Total 760 ml Output Urine Total 1100 ml 800 ml # Bowel Movements 3 Laboratory Tests 04/30/18 19:15: Coccidioides Antibody (Comp Fix) [Pending], Cytomegalovirus IgG Antibody [ Pending], Histoplasma Mycelial Antibody [Pending], Histoplasma Antibody w Mycelial Ag [Pending], Histoplasma Antibody with Yeast Ag [Pending], Aspergillus galactomannan Antigen [Pending] 05/01/18 03:50: Sodium Level 130L, Potassium Level 4.2, Chloride Level 99, Carbon Dioxide Level 22, Anion Gap 9, Blood Urea Nitrogen 14, Creatinine 1.0, Estimat Glomerular Filtration Rate > 60, Glucose Level 107H, Osmolality 274L, Uric Acid 2.7, Calcium Level 8.8, Phosphorus Level 4.1, Magnesium Level 2.0, Total Bilirubin 0.1L, Aspartate Amino Transf (AST/SGOT) 48H, Alanine Aminotransferase (ALT/SGPT ) 13, Alkaline Phosphatase 93, Total Protein 7.0, Albumin 1.7L, Globulin 5.3, Albumin/Globulin Ratio 0.3L 05/01/18 11:00: Urine Osmolality 437 Height (Feet): 5 Height (Inches): 6.00 Weight (Pounds): 130 General Appearance: mild distress Cardiovascular: tachycardia Respiratory/Chest: decreased breath sounds Abdomen: distended Objective no change Lukasz Eric MD May 01, 2018 14:17
--- NOTE | 2018-05-01 15:54 | NUR ---
*-* INSURANCE *-* REVIEWS HAVE BEEN FAXED: [facility] NCM:[facility] P:[phone] [phone] [phone]...
[2018-05-01 16:00] VITALS: BP 103/75
--- NOTE | 2018-05-01 16:12 | Pulmonology Progress Note ---
Assessment/Plan Problems: (1) Opportunistic infection (2) Lung nodule, multiple (3) Ground glass opacity present on imaging of lung (4) Pneumonia (5) AIDS Assessment/Plan ASSESSMENT: The patient is a 38-year-old male with a history of AIDS (CD4 count 18) presenting with respiratory illness with bilateral infiltrates, GGO's and scattered nodular opacities concerning for possible PJP pneumonia versus other typical or atypical infectious process of OI. empirically on Bactrim and steroids while awaiting LDH, ABG, PCP DFA. PROBLEM LIST: 1. Bilateral pulmonary infiltrates, CAP versus PJP pneumonia versus other opportunistic infection or atypical infection. 2. Scattered GGO's and pulmonary nodules, likely infectious, possible underlying neoplastic process 2. AIDS (CD4 count 18), recently back on antiretroviral therapy. 3. Leukopenia. 4. Anemia. 5. Pyuria. 6. GERD TREATMENT PLAN: 1. Optimize pulmonary hygiene/mobilize as tolerated. 2. Titrate down FiO2 to keep saturations greater than 90%. 3. O2 needs too high for bronchoscopy without intubation 4. F/U PJP DFA, cocci, crypto, histo urine Ag, galactomannan, 1,3-B-G (sent to ), quant gold and Cx's 5. Abx (CTx, Azithro, IV TMP-SMX) per ID, cART per ID 6. Continue Pred 40 TID 7. Uzhxr-mvo-vrsdw and p.r.n. bronchodilators. 8. Aspiration precautions. 9. Parenchymal nodules need to be followed to resolution or biopsied to R/O neoplastic process 10. DVT prophylaxis, heparin subcutaneous. 11. Monitor volumes and renal function Subjective Allergies: Coded Allergies: No Known Allergies (Unverified , 04/28/18) Subjective AFVSS on 4L feels better less SOB less cough not mobilizing no wheezing no F/C Objective Last 24 Hour Vital Signs Date Time Temp Pulse Resp B/P (MAP) Pulse Ox O2 Delivery O2 Flow Rate FiO2 05/01/18 15:32 96 05/01/18 13:59 90 20 95 Nasal Cannula 4.0 36 05/01/18 13:52 98 20 89 Nasal Cannula 4.0 36 05/01/18 12:00 Nasal Cannula 4.0 05/01/18 12:00 77 05/01/18 12:00 97.7 91 18 115/65 (82) 96 3/15/19 12:00 4.0 05/01/18 08:00 Nasal Cannula 4.0 05/01/18 08:00 97.5 95 19 103/73 (83) 96 05/01/18 08:00 95 05/01/18 08:00 10.0 45 05/01/18 07:30 83 22 98 Venturi Mask 10.0 45 05/01/18 07:27 97 Venturi Mask 10.0 45 05/01/18 07:27 Venturi Mask 10.0 45 05/01/18 07:23 84 22 97 Venturi Mask 10.0 45 05/01/18 04:08 87 05/01/18 04:00 8.0 40 05/01/18 04:00 97.7 93 28 100/70 (80) 96 05/01/18 04:00 Venturi Mask 8.0 05/01/18 01:25 88 24 98 Venturi Mask 10.0 45 05/01/18 01:10 77 24 97 Venturi Mask 10.0 45 05/01/18 00:00 97.3 75 28 94/66 (75) 96 05/01/18 00:00 Venturi Mask 8.0 04/30/18 23:39 87 04/30/18 20:00 Venturi Mask 8.0 04/30/18 20:00 97.9 96 32 112/74 (87) 95 04/30/18 20:00 8.0 40 04/30/18 19:59 90 28 98 Venturi Mask 10.0 45 04/30/18 19:43 92 04/30/18 19:38 88 28 98 Venturi Mask 10.0 45 04/30/18 19:37 Venturi Mask 10.0 45 04/30/18 19:37 98 Venturi Mask 10.0 45 Intake and Output 04/30/18 05/01/18 19:00 07:00 Intake Total 200 ml 1080 ml Output Total 1100 ml 800 ml Balance -900 ml 280 ml Intake Oral 200 ml 320 ml IV Total 760 ml Output Urine Total 1100 ml 800 ml # Bowel Movements 3 General Appearance: no acute distress, cachetic HEENT: normocephalic, atraumatic, anicteric, mucous membranes moist Respiratory/Chest: chest wall non-tender, rhonchi Cardiovascular: normal peripheral pulses, normal rate, regular rhythm Abdomen: normal bowel sounds, soft, non tender, no organomegaly, non distended , no mass Extremities: no cyanosis, no clubbing, no edema Laboratory Tests 04/30/18 19:15: Coccidioides Antibody (Comp Fix) [Pending], Cytomegalovirus IgG Antibody [ Pending], Histoplasma Mycelial Antibody [Pending], Histoplasma Antibody w Mycelial Ag [Pending], Histoplasma Antibody with Yeast Ag [Pending], Aspergillus galactomannan Antigen [Pending] 05/01/18 03:50: Sodium Level 130L, Potassium Level 4.2, Chloride Level 99, Carbon Dioxide Level 22, Anion Gap 9, Blood Urea Nitrogen 14, Creatinine 1.0, Estimat Glomerular Filtration Rate > 60, Glucose Level 107H, Osmolality 274L, Uric Acid 2.7, Calcium Level 8.8, Phosphorus Level 4.1, Magnesium Level 2.0, Total Bilirubin 0.1L, Aspartate Amino Transf (AST/SGOT) 48H, Alanine Aminotransferase (ALT/SGPT ) 13, Alkaline Phosphatase 93, Total Protein 7.0, Albumin 1.7L, Globulin 5.3, Albumin/Globulin Ratio 0.3L 05/01/18 11:00: Urine Osmolality 437 Current Medications Medications (Trade) Dose Ordered Sig/Garrick Route PRN Reason Start Time Stop Time Status Last Admin Dose Admin Acetaminophen (Tylenol) 500 mg Q4H PRN ORAL Mild Pain/Temp > 100.5 04/28/18 18:00 05/28/18 17:59 05/01/18 00:16 Albuterol/ Ipratropium (Albuterol/ Ipratropium) 3 ml Q4H PRN HHN Shortness of Breath 04/29/18 10:00 05/04/18 09:59 Albuterol/ Ipratropium (Albuterol/ Ipratropium) 3 ml Q6HRT HHN 04/29/18 13:00 05/04/18 12:59 05/01/18 13:51 Azithromycin (Zithromax) 250 mg Q24H ORAL 04/29/18 14:00 05/06/18 13:59 05/01/18 13:36 Ceftriaxone Sodium 1 gm/ Dextrose 55 ml @ 110 mls/hr Q24H IVPB 04/29/18 14:00 05/06/18 13:59 05/01/18 13:55 Diazepam (Valium) 10 mg Q2H PRN ORAL For Anxiety 04/29/18 12:31 05/06/18 12:30 Docusate Sodium (Colace) 100 mg TWICE A DAY ORAL 04/29/18 09:00 05/29/18 08:59 05/01/18 09:21 Folic Acid (Folate) 1 mg DAILY ORAL 04/30/18 09:00 05/30/18 08:59 05/01/18 09:22 Heparin Sodium (Porcine) (Heparin 5000 units/ml) 5,000 units EVERY 12 HOURS SUBQ 04/29/18 21:00 05/29/18 20:59 05/01/18 09:23 Hydrocortisone (Anusol HC) 1 applic DAILYPRN PRN RECTAL hemorrhoid 04/28/18 21:00 05/28/18 20:59 05/01/18 00:17 Lidocaine (Xylocaine) 1 applic DAILYPRN PRN TOPIC hemorroidal pain 04/29/18 13:00 05/29/18 12:59 04/29/18 13:37 Midodrine (Pro-Amatine) 2.5 mg THREE TIMES A DAY ORAL 04/30/18 18:00 05/30/18 17:59 05/01/18 13:36 Pantoprazole (Protonix) 40 mg DAILY IVP 05/01/18 09:00 05/31/18 08:59 05/01/18 09:22 Patient Own Medication (Patient's Own Med) 1 ea DAILY ORAL 04/29/18 09:00 05/29/18 08:59 05/01/18 09:22 Prednisone (predniSONE) 40 mg BID ORAL 04/29/18 18:00 05/29/18 17:59 05/01/18 09:23 Thiamine HCl (Vitamin B1) 100 mg DAILY ORAL 04/30/18 09:00 05/30/18 08:59 05/01/18 09:21 Trimethoprim/ Sulfamethoxazole 20 ml/Dextrose 570 ml @ 380 mls/hr Q8HR@0000,0800,1600 IV 04/30/18 00:00 05/07/18 00:00 05/01/18 08:11 Hiren De La Paz MD May 01, 2018 16:11
[2018-05-01] MEDS ORDERED: Albuterol/Ipratropium 3ml neb HHN PRN (18:30)
[2018-05-01] MEDS ORDERED: Acetaminophen 500mg (ES) tab ORAL PRN (18:30)
--- NOTE | 2018-05-01 18:45 | NUR ---
NURSE NOTES: Received patient from Aris Lange RN from [facility]. Patient awake and alert, no c/o pain, no SOB, in stable conditions, belongings at bedside. Noted that patient had an order for cryptococcus antigen, CSF, and cryptococcus antigen, CSF. Marcela Nguyen RN, will change order to blood.
--- NOTE | 2018-05-01 18:54 | NUR ---
TRANSFER TO FLOOR: Patient transferred to Telemetry room 205-2, per Dr. De La Paz. Report given to Federico RYAN. Belongings and medications given to receiving nurse. Family informed of transfer.
--- NOTE | 2018-05-01 19:39 | NUR ---
HAND-OFF: Report given to Colette Bunn RN. Patient sitting up in bed, awake and alert, on 4 liters nasal cannula, bed in lowest position, call light within reach, no c/o pain, no SOB, in no apparent distress.
[2018-05-01 20:00] VITALS: BP 123/69
--- NOTE | 2018-05-01 21:29 | General Progress Note ---
Assessment/Plan Problem List: (1) Dyspnea ICD Codes: R06.00 - Dyspnea, unspecified SNOMED: 244806750 (2) Pneumonia ICD Codes: J18.9 - Pneumonia, unspecified organism SNOMED: 398085078 (3) Pulmonary edema ICD Codes: J81.1 - Chronic pulmonary edema SNOMED: 02430695 (4) AIDS nephropathy ICD Codes: B20 - Human immunodeficiency virus [HIV] disease; N28.9 - Disorder of kidney and ureter, unspecified SNOMED: 32010713, 437320199 (5) AIDS ICD Codes: B20 - Human immunodeficiency virus [HIV] disease SNOMED: 80137738 (6) Hypoalbuminemia ICD Codes: E88.09 - Other disorders of plasma-protein metabolism, not elsewhere classified SNOMED: 589010963 (7) Ground glass opacity present on imaging of lung ICD Codes: R91.8 - Other nonspecific abnormal finding of lung field SNOMED: 654063168 Status: unchanged Assessment/Plan pna hiv wasting syndrome reviewed chart and labs and meds poor prognosis pulm edema still on oxygen Subjective ROS Limited/Unobtainable: Yes Allergies: Coded Allergies: No Known Allergies (Unverified , 04/28/18) Objective Last 24 Hour Vital Signs Date Time Temp Pulse Resp B/P (MAP) Pulse Ox O2 Delivery O2 Flow Rate FiO2 05/01/18 20:22 99 20 91 Nasal Cannula 4.0 36 05/01/18 20:16 Nasal Cannula 4.0 36 05/01/18 20:15 91 Nasal Cannula 4.0 36 05/01/18 20:08 102 18 90 Nasal Cannula 4.0 36 05/01/18 16:28 96 05/01/18 16:00 Nasal Cannula 4.0 05/01/18 16:00 97.2 82 18 103/75 (84) 99 05/01/18 16:00 4.0 05/01/18 15:34 96 05/01/18 13:59 90 20 95 Nasal Cannula 4.0 36 05/01/18 13:52 98 20 89 Nasal Cannula 4.0 36 05/01/18 12:00 Nasal Cannula 4.0 05/01/18 12:00 77 05/01/18 12:00 97.7 91 18 115/65 (82) 96 05/01/18 12:00 4.0 05/01/18 08:00 Nasal Cannula 4.0 05/01/18 08:00 97.5 95 19 103/73 (83) 96 05/01/18 08:00 95 05/01/18 08:00 10.0 45 05/01/18 07:30 83 22 98 Venturi Mask 10.0 45 05/01/18 07:27 97 Venturi Mask 10.0 45 05/01/18 07:27 Venturi Mask 10.0 45 05/01/18 07:23 84 22 97 Venturi Mask 10.0 45 05/01/18 04:08 87 05/01/18 04:00 8.0 40 05/01/18 04:00 97.7 93 28 100/70 (80) 96 05/01/18 04:00 Venturi Mask 8.0 05/01/18 01:25 88 24 98 Venturi Mask 10.0 45 05/01/18 01:10 77 24 97 Venturi Mask 10.0 45 05/01/18 00:00 97.3 75 28 94/66 (75) 96 05/01/18 00:00 Venturi Mask 8.0 04/30/18 23:39 87 Intake and Output 04/30/18 05/01/18 18:59 06:59 Intake Total 200 ml 1080 ml Output Total 1100 ml 800 ml Balance -900 ml 280 ml Intake Oral 200 ml 320 ml IV Total 760 ml Output Urine Total 1100 ml 800 ml # Bowel Movements 3 Laboratory Tests 05/01/18 03:50: Sodium Level 130L, Potassium Level 4.2, Chloride Level 99, Carbon Dioxide Level 22, Anion Gap 9, Blood Urea Nitrogen 14, Creatinine 1.0, Estimat Glomerular Filtration Rate > 60, Glucose Level 107H, Osmolality 274L, Uric Acid 2.7, Calcium Level 8.8, Phosphorus Level 4.1, Magnesium Level 2.0, Total Bilirubin 0.1L, Aspartate Amino Transf (AST/SGOT) 48H, Alanine Aminotransferase (ALT/SGPT ) 13, Alkaline Phosphatase 93, Total Protein 7.0, Albumin 1.7L, Globulin 5.3, Albumin/Globulin Ratio 0.3L 05/01/18 11:00: Urine Osmolality 437 Height (Feet): 5 Height (Inches): 6.00 Weight (Pounds): 130 Cardiovascular: normal rate Respiratory/Chest: rhonchi - bilaterally Abdomen: soft Hadadz,Ali MD May 01, 2018 21:29
[2018-05-02] VITALS: BP 114/60
[2018-05-02] MEDS ORDERED: Bactrim-DS 1 tab ONE (01:00)
--- NOTE | 2018-05-02 01:11 | NUR ---
unable to administer bactrim scheduled at 0000, med not available. called [facility] to solve the issue [facility] said nothing we can do now.charge nurse aware.
[2018-05-02] MEDS: Albuterol/Ipratropium 3ml neb HHN SCH ×4 (01:38→20:26)
[2018-05-02] MEDS: Trimethoprim/Sulfamethoxazole 20 ML in D5W 500ml 550 ML IV SCH ×5 (02:22→18:14)
--- NOTE | 2018-05-02 03:02 | NUR ---
NURSE NOTES: bactrim dose scheduled for 00:00 was administered at 02:22 AM. medication was not available at scheduled time 00:00, but was administered at 02:22 AM will endorse this information to incoming nurse so pharmacy adjust administration time for this med.
[2018-05-02 04:00] VITALS: BP 123/63
--- NOTE | 2018-05-02 06:40 | NUR ---
NURSE NOTES: pt stable no acute distress during my shift, all needs met during my shift safety precaution in place. will endorse pt to incoming nurse.
[2018-05-02 07:05] LABS: HEMATOCRIT 32.8 % (42.0-52.0); HEMOGLOBIN 11.2 G/DL (14.2-18.0); MEAN CORPUSCULAR VOLUME 106 FL (80-99); PLATELET COUNT 321 K/UL (150-450); RED BLOOD COUNT 3.09 M/UL (4.70-6.10); RED CELL DISTRIBUTION WIDTH 13.8 % (11.6-14.8); WHITE BLOOD COUNT 2.4 K/UL (4.8-10.8)
[2018-05-02 07:44] LABS: ALANINE AMINOTRANSFERASE 17 U/L (12-78); ALBUMIN 2.4 G/DL (3.4-5.0); ALBUMIN/GLOBULIN RATIO 0.4 (1.0-2.7); ALKALINE PHOSPHATASE 96 U/L (46-116); ANION GAP 10 mmol/L (5-15); ASPARTATE AMINO TRANSFERASE 46 U/L (15-37); BILIRUBIN,TOTAL 0.1 MG/DL (0.2-1.0); BLOOD UREA NITROGEN 14 mg/dL (7-18); CALCIUM 9.5 MG/DL (8.5-10.1); CARBON DIOXIDE 24 MMOL/L (21-32); CHLORIDE 98 MMOL/L (98-107); CREATININE 0.9 MG/DL (0.55-1.30); SODIUM 132 MMOL/L (136-145)
--- NOTE | 2018-05-02 07:52 | NUR ---
HAND-OFF: Report given to SHELBY Motley.
[2018-05-02 08:00] VITALS: BP 119/65
[2018-05-02] MEDS ORDERED: Trimethoprim/Sulfamethoxazole 20 ML in D5W 500ml 550 ML IV SCH (08:00)
[2018-05-02] MEDS ORDERED: Pantoprazole Inj IVP SCH (09:00)
[2018-05-02] MEDS: Thiamine 100mg tab ORAL SCH (10:06)
[2018-05-02] MEDS: Docusate 100mg cap ORAL SCH ×2 (10:07→18:14)
[2018-05-02] MEDS: Heparin 5000 units/ml inj SUBQ SCH ×2 (10:08→21:16)
--- NOTE | 2018-05-02 10:17 | Infectious Diseases Prog Note ---
Assessment/Plan Assessment/Plan antibiotics : ceftriaxone, azithromycin, iv bactrim A 1. pneumonia r/o PCP, increased LDH 2. AIDS, cd4 18 3. seizures 4. asthma P 1. continue ceftriaxone, azithromycin 2. continue bactrim iv, steroids 3. will follow up cultures Subjective Constitutional: Denies: fever, chills Respiratory: Reports: shortness of breath, dry cough Gastrointestinal/Abdominal: Reports: nausea; Denies: vomiting, diarrhea Musculoskeletal: Denies: pain Allergies: Coded Allergies: No Known Allergies (Unverified , 04/28/18) Objective Vital Signs Last 24 Hour Vital Signs Date Time Temp Pulse Resp B/P (MAP) Pulse Ox O2 Delivery O2 Flow Rate FiO2 05/02/18 08:01 97 20 96 Nasal Cannula 4.0 36 05/02/18 07:54 94 18 95 Nasal Cannula 4.0 36 05/02/18 07:54 Nasal Cannula 4.0 36 05/02/18 07:54 95 Nasal Cannula 4.0 36 05/02/18 04:00 Nasal Cannula 4.0 05/02/18 04:00 4.0 40 05/02/18 04:00 97.6 83 20 123/63 (83) 97 05/02/18 04:00 93 05/02/18 01:47 96 20 94 Nasal Cannula 4.0 36 05/02/18 01:38 95 18 92 Nasal Cannula 4.0 36 05/02/18 01:25 Nasal Cannula 4.0 05/02/18 00:00 Nasal Cannula 4.0 05/02/18 00:00 76 05/02/18 00:00 97.9 83 19 114/60 (78) 96 05/02/18 00:00 4.0 40 05/01/18 23:25 4.0 40 05/01/18 20:22 99 20 91 Nasal Cannula 4.0 36 05/01/18 20:16 Nasal Cannula 4.0 36 05/01/18 20:15 91 Nasal Cannula 4.0 36 05/01/18 20:08 102 18 90 Nasal Cannula 4.0 36 05/01/18 20:00 Nasal Cannula 4.0 05/01/18 20:00 86 05/01/18 20:00 97.2 96 19 123/69 (87) 94 05/01/18 16:28 96 05/01/18 16:00 Nasal Cannula 4.0 05/01/18 16:00 97.2 82 18 103/75 (84) 99 05/01/18 16:00 4.0 05/01/18 15:34 96 05/01/18 13:59 90 20 95 Nasal Cannula 4.0 36 05/01/18 13:52 98 20 89 Nasal Cannula 4.0 36 05/01/18 12:00 Nasal Cannula 4.0 05/01/18 12:00 77 05/01/18 12:00 97.7 91 18 115/65 (82) 96 05/01/18 12:00 4.0 Height (Feet): 5 Height (Inches): 6.00 Weight (Pounds): 130 Respiratory/Chest: lungs clear Cardiovascular: normal rate, regular rhythm, no gallop/murmur Abdomen: soft, non tender Extremities: no edema Laboratory Tests Test 05/01/18 11:00 05/02/18 04:50 Urine Osmolality 437 mOsm/kg (429-449) White Blood Count 2.4 K/UL (4.8-10.8) L Red Blood Count 3.09 M/UL (4.70-6.10) L Hemoglobin 11.2 G/DL (14.2-18.0) L Hematocrit 32.8 % (42.0-52.0) L Mean Corpuscular Volume 106 FL (80-99) H Mean Corpuscular Hemoglobin 36.3 PG (27.0-31.0) H Mean Corpuscular Hemoglobin Concent 34.2 G/DL (32.0-36.0) Red Cell Distribution Width 13.8 % (11.6-14.8) Platelet Count 321 K/UL (150-450) Mean Platelet Volume 7.0 FL (6.5-10.1) Neutrophils (%) (Auto) % (45.0-75.0) Lymphocytes (%) (Auto) % (20.0-45.0) Monocytes (%) (Auto) % (1.0-10.0) Eosinophils (%) (Auto) % (0.0-3.0) Basophils (%) (Auto) % (0.0-2.0) Neutrophils % (Manual) Pending Lymphocytes % (Manual) Pending Platelet Estimate Pending Platelet Morphology Pending Sodium Level 132 MMOL/L (136-145) L Potassium Level 4.0 MMOL/L (3.5-5.1) Chloride Level 98 MMOL/L (98-107) Carbon Dioxide Level 24 MMOL/L (21-32) Anion Gap 10 mmol/L (5-15) Blood Urea Nitrogen 14 mg/dL (7-18) Creatinine 0.9 MG/DL (0.55-1.30) Estimat Glomerular Filtration Rate > 60 mL/min (>60) Glucose Level 114 MG/DL (74-106) H Osmolality 283 mOsm/kg (297-317) L Uric Acid 2.1 MG/DL (2.6-7.2) L Calcium Level 9.5 MG/DL (8.5-10.1) Total Bilirubin 0.1 MG/DL (0.2-1.0) L Aspartate Amino Transf (AST/SGOT) 46 U/L (15-37) H Alanine Aminotransferase (ALT/SGPT) 17 U/L (12-78) Alkaline Phosphatase 96 U/L (46-116) Pro-B-Type Natriuretic Peptide 449 pg/mL (0-125) H Total Protein 7.9 G/DL (6.4-8.2) Albumin 2.4 G/DL (3.4-5.0) L Globulin 5.5 g/dL Albumin/Globulin Ratio 0.4 (1.0-2.7) L Cryptococcus Antigen Pending Cytomegalovirus DNA Qual (PCR) Pending Current Medications Medications (Trade) Dose Ordered Sig/Garrick Route PRN Reason Start Time Stop Time Status Last Admin Dose Admin Acetaminophen (Tylenol) 500 mg Q4H PRN ORAL Mild Pain/Temp > 100.5 05/01/18 18:30 05/28/18 18:29 Albuterol/ Ipratropium (Albuterol/ Ipratropium) 3 ml Q4H PRN HHN Shortness of Breath 05/01/18 18:30 05/04/18 18:29 Albuterol/ Ipratropium (Albuterol/ Ipratropium) 3 ml Q6HRT HHN 05/01/18 19:00 05/04/18 12:59 05/02/18 07:54 Azithromycin (Zithromax) 250 mg Q24H ORAL 05/02/18 14:00 05/06/18 13:59 Ceftriaxone Sodium 1 gm/ Dextrose 55 ml @ 110 mls/hr Q24H IVPB 05/02/18 14:00 05/06/18 13:59 Diazepam (Valium) 10 mg Q2H PRN ORAL For Anxiety 05/01/18 18:45 05/06/18 12:30 Docusate Sodium (Colace) 100 mg TWICE A DAY ORAL 05/02/18 09:00 05/29/18 08:59 05/02/18 10:07 Folic Acid (Folate) 1 mg DAILY ORAL 05/02/18 09:00 05/30/18 08:59 05/02/18 10:07 Heparin Sodium (Porcine) (Heparin 5000 units/ml) 5,000 units EVERY 12 HOURS SUBQ 05/01/18 21:00 05/29/18 20:59 05/02/18 10:08 Hydrocortisone (Anusol HC) 1 applic DAILYPRN PRN RECTAL hemorrhoid 05/01/18 21:00 05/28/18 20:59 Lidocaine (Xylocaine) 1 applic DAILYPRN PRN TOPIC hemorroidal pain 05/02/18 13:00 05/29/18 12:59 Midodrine (Pro-Amatine) 2.5 mg THREE TIMES A DAY ORAL 05/02/18 09:00 05/30/18 17:59 05/02/18 10:06 Pantoprazole (Protonix) 40 mg DAILY IVP 05/02/18 09:00 05/31/18 08:59 05/02/18 10:05 Patient Own Medication (Patient's Own Med) 1 ea DAILY ORAL 05/02/18 09:00 05/29/18 08:59 Prednisone (predniSONE) 40 mg BID ORAL 05/02/18 09:00 05/29/18 17:59 05/02/18 10:07 Thiamine HCl (Vitamin B1) 100 mg DAILY ORAL 05/02/18 09:00 05/30/18 08:59 05/02/18 10:06 Trimethoprim/ Sulfamethoxazole 20 ml/Dextrose 570 ml @ 380 mls/hr Q8HR@0200,1000,1800 IV 05/02/18 10:00 05/09/18 09:59 05/02/18 10:09 Adrien Roth MD May 02, 2018 10:17
[2018-05-02 12:00] VITALS: BP 122/64
[2018-05-02] MEDS ORDERED: Lidocaine 4% Cream 15g TOPIC PRN (13:00)
[2018-05-02] MEDS: Azithromycin 250mg tab ORAL SCH (13:22)
[2018-05-02] MEDS: cefTRIAXone 1 GM in D5W 55 ML IVPB SCH (14:32)
--- NOTE | 2018-05-02 15:20 | Nephrology Progress Note ---
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 AIDs Nephropathy Sz Asthma HIV / AIDS Anemia Low Na Plan 24 H urine Protein being collected under ! gram Albumin followed by Lasix for low Na given 05/02 Anemia cotter, low folate low bp start Midodrine U os and S os for eval of low Na per orders Subjective ROS Limited/Unobtainable: No Objective Objective Last 24 Hour Vital Signs Date Time Temp Pulse Resp B/P (MAP) Pulse Ox O2 Delivery O2 Flow Rate FiO2 05/02/18 13:28 94 20 98 Nasal Cannula 4.0 36 05/02/18 13:20 91 18 97 Nasal Cannula 4.0 36 05/02/18 08:01 97 20 96 Nasal Cannula 4.0 36 05/02/18 07:54 94 18 95 Nasal Cannula 4.0 36 05/02/18 07:54 Nasal Cannula 4.0 36 05/02/18 07:54 95 Nasal Cannula 4.0 36 05/02/18 04:00 Nasal Cannula 4.0 05/02/18 04:00 4.0 40 05/02/18 04:00 97.6 83 20 123/63 (83) 97 05/02/18 04:00 93 05/02/18 01:47 96 20 94 Nasal Cannula 4.0 36 05/02/18 01:38 95 18 92 Nasal Cannula 4.0 36 05/02/18 01:25 Nasal Cannula 4.0 05/02/18 00:00 Nasal Cannula 4.0 05/02/18 00:00 76 05/02/18 00:00 97.9 83 19 114/60 (78) 96 05/02/18 00:00 4.0 40 05/01/18 23:25 4.0 40 05/01/18 20:22 99 20 91 Nasal Cannula 4.0 36 05/01/18 20:16 Nasal Cannula 4.0 36 05/01/18 20:15 91 Nasal Cannula 4.0 36 05/01/18 20:08 102 18 90 Nasal Cannula 4.0 36 05/01/18 20:00 Nasal Cannula 4.0 05/01/18 20:00 86 05/01/18 20:00 97.2 96 19 123/69 (87) 94 05/01/18 16:28 96 05/01/18 16:00 Nasal Cannula 4.0 05/01/18 16:00 97.2 82 18 103/75 (84) 99 05/01/18 16:00 4.0 05/01/18 15:34 96 Intake and Output 05/01/18 05/02/18 19:00 07:00 Intake Total 1615 ml Output Total 690 ml 300 ml Balance 925 ml -300 ml Intake Oral 320 ml IV Total 1295 ml Output Urine Total 690 ml 300 ml Laboratory Tests 05/02/18 04:50: White Blood Count 2.4L, Red Blood Count 3.09L, Hemoglobin 11.2L, Hematocrit 32.8L, Mean Corpuscular Volume 106H, Mean Corpuscular Hemoglobin 36.3H, Mean Corpuscular Hemoglobin Concent 34.2, Red Cell Distribution Width 13.8, Platelet Count 321, Mean Platelet Volume 7.0, Neutrophils (%) (Auto) , Lymphocytes (%) ( Auto) , Monocytes (%) (Auto) , Eosinophils (%) (Auto) , Basophils (%) (Auto) , Differential Total Cells Counted 100, Neutrophils % (Manual) 80H, Lymphocytes % (Manual) 4L, Monocytes % (Manual) 16H, Eosinophils % (Manual) 0, Basophils % ( Manual) 0, Band Neutrophils 0, Platelet Estimate Adequate, Platelet Morphology Normal, Hypochromasia 1+, Macrocytosis 1+, Sodium Level 132L, Potassium Level 4.0, Chloride Level 98, Carbon Dioxide Level 24, Anion Gap 10, Blood Urea Nitrogen 14, Creatinine 0.9, Estimat Glomerular Filtration Rate > 60, Glucose Level 114H, Osmolality 283L, Uric Acid 2.1L, Calcium Level 9.5, Total Bilirubin 0.1L, Aspartate Amino Transf (AST/SGOT) 46H, Alanine Aminotransferase (ALT/SGPT ) 17, Alkaline Phosphatase 96, Pro-B-Type Natriuretic Peptide 449H, Total Protein 7.9, Albumin 2.4L, Globulin 5.5, Albumin/Globulin Ratio 0.4L, Cryptococcus Antigen [Pending], Cytomegalovirus DNA Qual (PCR) [Pending] Height (Feet): 5 Height (Inches): 6.00 Weight (Pounds): 130 General Appearance: mild distress Cardiovascular: tachycardia Respiratory/Chest: decreased breath sounds Abdomen: distended Objective no change Lukasz Eric MD May 02, 2018 15:20
[2018-05-02 16:00] VITALS: BP 116/65
--- NOTE | 2018-05-02 17:53 | Pulmonology Progress Note ---
Assessment/Plan Assessment/Plan PROBLEM LIST: 1. Bilateral pulmonary infiltrates, CAP versus PJP pneumonia versus other opportunistic infection or atypical infection. 2. Scattered GGO's and pulmonary nodules, likely infectious, possible underlying neoplastic process 2. AIDS (CD4 count 18), recently back on antiretroviral therapy. 3. Leukopenia. 4. Anemia. 5. Pyuria. 6. GERD TREATMENT PLAN: 1. Optimize pulmonary hygiene/mobilize as tolerated. 2. Titrate down FiO2 to keep saturations greater than 90%. 3. O2 needs too high for bronchoscopy without intubation 4. F/U PJP DFA, cocci, crypto, histo urine Ag, galactomannan, 1,3-B-G (sent to ), quant gold and Cx's 5. Abx (CTx, Azithro, IV TMP-SMX) per ID, cART per ID 6. Continue Pred 40 TID 7. Glzql-nss-lxzhp and p.r.n. bronchodilators. 8. Aspiration precautions. 9. Parenchymal nodules need to be followed to resolution or biopsied to R/O neoplastic process 10. DVT prophylaxis, heparin subcutaneous. 11. Monitor volumes and renal function 12 CXR friday 13. Bronch next week Subjective Constitutional: Reports: no symptoms HEENT: Repors: no symptoms Respiratory: Reports: no symptoms Cardiovascular: Reports: no symptoms Gastrointestinal/Abdominal: Reports: no symptoms Allergies: Coded Allergies: No Known Allergies (Unverified , 04/28/18) Subjective Awake toelrating po no cp nv or bleeding oob on 4 L o2 no cough or phlegm production Objective Last 24 Hour Vital Signs Date Time Temp Pulse Resp B/P (MAP) Pulse Ox O2 Delivery O2 Flow Rate FiO2 05/02/18 13:28 94 20 98 Nasal Cannula 4.0 36 05/02/18 13:20 91 18 97 Nasal Cannula 4.0 36 05/02/18 08:01 97 20 96 Nasal Cannula 4.0 36 05/02/18 07:54 94 18 95 Nasal Cannula 4.0 36 05/02/18 07:54 Nasal Cannula 4.0 36 05/02/18 07:54 95 Nasal Cannula 4.0 36 05/02/18 04:00 Nasal Cannula 4.0 05/02/18 04:00 4.0 40 05/02/18 04:00 97.6 83 20 123/63 (83) 97 05/02/18 04:00 93 05/02/18 01:47 96 20 94 Nasal Cannula 4.0 36 05/02/18 01:38 95 18 92 Nasal Cannula 4.0 36 05/02/18 01:25 Nasal Cannula 4.0 05/02/18 00:00 Nasal Cannula 4.0 05/02/18 00:00 76 05/02/18 00:00 97.9 83 19 114/60 (78) 96 05/02/18 00:00 4.0 40 05/01/18 23:25 4.0 40 05/01/18 20:22 99 20 91 Nasal Cannula 4.0 36 05/01/18 20:16 Nasal Cannula 4.0 36 05/01/18 20:15 91 Nasal Cannula 4.0 36 05/01/18 20:08 102 18 90 Nasal Cannula 4.0 36 05/01/18 20:00 Nasal Cannula 4.0 05/01/18 20:00 86 05/01/18 20:00 97.2 96 19 123/69 (87) 94 Intake and Output 05/01/18 05/02/18 19:00 07:00 Intake Total 1615 ml Output Total 690 ml 300 ml Balance 925 ml -300 ml Intake Oral 320 ml IV Total 1295 ml Output Urine Total 690 ml 300 ml General Appearance: WD/WN HEENT: atraumatic, anicteric Respiratory/Chest: normal breath sounds, no respiratory distress Cardiovascular: normal rate, regular rhythm Abdomen: soft, non tender, no organomegaly Extremities: no clubbing Neurologic/Psychiatric: no motor/sensory deficits, alert, oriented x 3 Microbiology Date/Time Source Procedure Growth Status 05/01/18 11:40 Sputum Expectorated Gram Stain - Final Resulted 05/01/18 11:40 Sputum Expectorated Sputum Culture Pending Resulted Laboratory Tests 05/02/18 04:50: White Blood Count 2.4L, Red Blood Count 3.09L, Hemoglobin 11.2L, Hematocrit 32.8L, Mean Corpuscular Volume 106H, Mean Corpuscular Hemoglobin 36.3H, Mean Corpuscular Hemoglobin Concent 34.2, Red Cell Distribution Width 13.8, Platelet Count 321, Mean Platelet Volume 7.0, Neutrophils (%) (Auto) , Lymphocytes (%) ( Auto) , Monocytes (%) (Auto) , Eosinophils (%) (Auto) , Basophils (%) (Auto) , Differential Total Cells Counted 100, Neutrophils % (Manual) 80H, Lymphocytes % (Manual) 4L, Monocytes % (Manual) 16H, Eosinophils % (Manual) 0, Basophils % ( Manual) 0, Band Neutrophils 0, Platelet Estimate Adequate, Platelet Morphology Normal, Hypochromasia 1+, Macrocytosis 1+, Sodium Level 132L, Potassium Level 4.0, Chloride Level 98, Carbon Dioxide Level 24, Anion Gap 10, Blood Urea Nitrogen 14, Creatinine 0.9, Estimat Glomerular Filtration Rate > 60, Glucose Level 114H, Osmolality 283L, Uric Acid 2.1L, Calcium Level 9.5, Total Bilirubin 0.1L, Aspartate Amino Transf (AST/SGOT) 46H, Alanine Aminotransferase (ALT/SGPT ) 17, Alkaline Phosphatase 96, Pro-B-Type Natriuretic Peptide 449H, Total Protein 7.9, Albumin 2.4L, Globulin 5.5, Albumin/Globulin Ratio 0.4L, Cryptococcus Antigen [Pending], Cytomegalovirus DNA Qual (PCR) [Pending] Current Medications Medications (Trade) Dose Ordered Sig/Garrick Route PRN Reason Start Time Stop Time Status Last Admin Dose Admin Acetaminophen (Tylenol) 500 mg Q4H PRN ORAL Mild Pain/Temp > 100.5 05/01/18 18:30 05/28/18 18:29 Albuterol/ Ipratropium (Albuterol/ Ipratropium) 3 ml Q4H PRN HHN Shortness of Breath 05/01/18 18:30 05/04/18 18:29 Albuterol/ Ipratropium (Albuterol/ Ipratropium) 3 ml Q6HRT HHN 05/01/18 19:00 05/04/18 12:59 05/02/18 13:19 Azithromycin (Zithromax) 250 mg Q24H ORAL 05/02/18 14:00 05/06/18 13:59 05/02/18 13:22 Ceftriaxone Sodium 1 gm/ Dextrose 55 ml @ 110 mls/hr Q24H IVPB 05/02/18 14:00 05/06/18 13:59 05/02/18 14:32 Diazepam (Valium) 10 mg Q2H PRN ORAL For Anxiety 05/01/18 18:45 05/06/18 12:30 Docusate Sodium (Colace) 100 mg TWICE A DAY ORAL 05/02/18 09:00 05/29/18 08:59 05/02/18 10:07 Folic Acid (Folate) 2 mg DAILY ORAL 05/03/18 09:00 05/30/18 08:59 Heparin Sodium (Porcine) (Heparin 5000 units/ml) 5,000 units EVERY 12 HOURS SUBQ 05/01/18 21:00 05/29/18 20:59 05/02/18 10:08 Hydrocortisone (Anusol HC) 1 applic DAILYPRN PRN RECTAL hemorrhoid 05/01/18 21:00 05/28/18 20:59 Lidocaine (Xylocaine) 1 applic DAILYPRN PRN TOPIC hemorroidal pain 05/02/18 13:00 05/29/18 12:59 Midodrine (Pro-Amatine) 2.5 mg THREE TIMES A DAY ORAL 05/02/18 09:00 05/30/18 17:59 05/02/18 13:22 Pantoprazole (Protonix) 40 mg EVERY 12 HOURS ORAL 05/02/18 21:00 06/01/18 20:59 Patient Own Medication (Patient's Own Med) 1 ea DAILY ORAL 05/02/18 09:00 05/29/18 08:59 05/02/18 11:25 Prednisone (predniSONE) 40 mg BID ORAL 05/02/18 09:00 05/29/18 17:59 05/02/18 10:07 Thiamine HCl (Vitamin B1) 100 mg DAILY ORAL 05/02/18 09:00 05/30/18 08:59 05/02/18 10:06 Trimethoprim/ Sulfamethoxazole 20 ml/Dextrose 570 ml @ 380 mls/hr Q8HR@0200,1000,1800 IV 05/02/18 10:00 05/09/18 09:59 05/02/18 10:09 Swathi Campuzano 16, 2019 17:53
--- NOTE | 2018-05-02 19:30 | NUR ---
NURSE NOTES: Report received from Meagan Cervantes RN. Pt is resting in bed in stable condition. Pt is awake, alert, and oriented x4. Pt is on 2L O2 via nasal cannula and breathing is even and unlabored. No acute distress noted. IV site noted to be R FA #20g and is running Bactrim at rx rate. Bed is in lowest position with brake engaged, side rails up x3, and bed alarm on. Call light and side table placed within reach. Will continue to monitor.
[2018-05-02 20:00] VITALS: BP 97/65
--- NOTE | 2018-05-02 20:25 | General Progress Note ---
Assessment/Plan Problem List: (1) Dyspnea ICD Codes: R06.00 - Dyspnea, unspecified SNOMED: 965660778 (2) Pneumonia ICD Codes: J18.9 - Pneumonia, unspecified organism SNOMED: 882537865 (3) Pulmonary edema ICD Codes: J81.1 - Chronic pulmonary edema SNOMED: 06153687 (4) AIDS nephropathy ICD Codes: B20 - Human immunodeficiency virus [HIV] disease; N28.9 - Disorder of kidney and ureter, unspecified SNOMED: 70716959, 334883853 (5) AIDS ICD Codes: B20 - Human immunodeficiency virus [HIV] disease SNOMED: 17728863 (6) Hypoalbuminemia ICD Codes: E88.09 - Other disorders of plasma-protein metabolism, not elsewhere classified SNOMED: 562361048 (7) Ground glass opacity present on imaging of lung ICD Codes: R91.8 - Other nonspecific abnormal finding of lung field SNOMED: 270654107 Status: unchanged Assessment/Plan pna hypoxia improving severe pna abx per id hiv wasting syndrome reviewed chart and labs and meds poor prognosis still on oxygen Subjective Respiratory: Reports: shortness of breath Allergies: Coded Allergies: No Known Allergies (Unverified , 04/28/18) Objective Last 24 Hour Vital Signs Date Time Temp Pulse Resp B/P (MAP) Pulse Ox O2 Delivery O2 Flow Rate FiO2 05/02/18 16:00 97.2 20 116/65 (82) 92 05/02/18 16:00 102 05/02/18 13:28 94 20 98 Nasal Cannula 4.0 36 05/02/18 13:20 91 18 97 Nasal Cannula 4.0 36 05/02/18 12:00 81 05/02/18 12:00 97.2 81 20 122/64 (83) 96 05/02/18 09:00 Nasal Cannula 4.0 05/02/18 08:01 97 20 96 Nasal Cannula 4.0 36 05/02/18 08:00 97.6 87 20 119/65 (83) 95 05/02/18 08:00 87 05/02/18 07:54 94 18 95 Nasal Cannula 4.0 36 05/02/18 07:54 Nasal Cannula 4.0 36 05/02/18 07:54 95 Nasal Cannula 4.0 36 05/02/18 04:00 Nasal Cannula 4.0 05/02/18 04:00 4.0 40 05/02/18 04:00 97.6 83 20 123/63 (83) 97 05/02/18 04:00 93 05/02/18 01:47 96 20 94 Nasal Cannula 4.0 36 05/02/18 01:38 95 18 92 Nasal Cannula 4.0 36 05/02/18 01:25 Nasal Cannula 4.0 05/02/18 00:00 Nasal Cannula 4.0 05/02/18 00:00 76 05/02/18 00:00 97.9 83 19 114/60 (78) 96 05/02/18 00:00 4.0 40 05/01/18 23:25 4.0 40 Intake and Output 05/01/18 05/02/18 18:59 06:59 Intake Total 1615 ml Output Total 690 ml 300 ml Balance 925 ml -300 ml Intake Oral 320 ml IV Total 1295 ml Output Urine Total 690 ml 300 ml Laboratory Tests 05/02/18 04:50: White Blood Count 2.4L, Red Blood Count 3.09L, Hemoglobin 11.2L, Hematocrit 32.8L, Mean Corpuscular Volume 106H, Mean Corpuscular Hemoglobin 36.3H, Mean Corpuscular Hemoglobin Concent 34.2, Red Cell Distribution Width 13.8, Platelet Count 321, Mean Platelet Volume 7.0, Neutrophils (%) (Auto) , Lymphocytes (%) ( Auto) , Monocytes (%) (Auto) , Eosinophils (%) (Auto) , Basophils (%) (Auto) , Differential Total Cells Counted 100, Neutrophils % (Manual) 80H, Lymphocytes % (Manual) 4L, Monocytes % (Manual) 16H, Eosinophils % (Manual) 0, Basophils % ( Manual) 0, Band Neutrophils 0, Platelet Estimate Adequate, Platelet Morphology Normal, Hypochromasia 1+, Macrocytosis 1+, Sodium Level 132L, Potassium Level 4.0, Chloride Level 98, Carbon Dioxide Level 24, Anion Gap 10, Blood Urea Nitrogen 14, Creatinine 0.9, Estimat Glomerular Filtration Rate > 60, Glucose Level 114H, Osmolality 283L, Uric Acid 2.1L, Calcium Level 9.5, Total Bilirubin 0.1L, Aspartate Amino Transf (AST/SGOT) 46H, Alanine Aminotransferase (ALT/SGPT ) 17, Alkaline Phosphatase 96, Pro-B-Type Natriuretic Peptide 449H, Total Protein 7.9, Albumin 2.4L, Globulin 5.5, Albumin/Globulin Ratio 0.4L, Cryptococcus Antigen [Pending], Cytomegalovirus DNA Qual (PCR) [Pending] Height (Feet): 5 Height (Inches): 6.00 Weight (Pounds): 130 General Appearance: confused Respiratory/Chest: lungs clear Abdomen: soft Andreia Roy MD May 02, 2018 20:25
[2018-05-03] VITALS: BP 103/70
[2018-05-03] MEDS: Albuterol/Ipratropium 3ml neb HHN SCH ×4 (01:13→20:27)
[2018-05-03] MEDS: Trimethoprim/Sulfamethoxazole 20 ML in D5W 500ml 550 ML IV SCH ×3 (02:19→17:25)
--- NOTE | 2018-05-03 07:01 | Pulmonology Progress Note ---
Assessment/Plan Assessment/Plan PROBLEM LIST: 1. Bilateral pulmonary infiltrates, CAP versus PJP pneumonia versus other opportunistic infection or atypical infection. 2. Scattered GGO's and pulmonary nodules, likely infectious, possible underlying neoplastic process 2. AIDS (CD4 count 18), recently back on antiretroviral therapy. 3. Leukopenia. 4. Anemia. 5. Pyuria. 6. GERD TREATMENT PLAN: 1. Optimize pulmonary hygiene/mobilize as tolerated. 2. Titrate down FiO2 to keep saturations greater than 90%. 3. O2 needs too high for bronchoscopy without intubation 4. F/U PJP DFA, cocci, crypto, histo urine Ag, galactomannan, 1,3-B-G (sent to ), quant gold and Cx's 5. Abx (CTx, Azithro, IV TMP-SMX) per ID, cART per ID 6. Continue Pred 40 TID 7. Iozan-nnd-wanit and p.r.n. bronchodilators. 8. Aspiration precautions. 9. Parenchymal nodules need to be followed to resolution or biopsied to R/O neoplastic process 10. DVT prophylaxis, heparin subcutaneous. 11. Monitor volumes and renal function 12 CXR friday 13. Bronch next week Subjective Constitutional: Reports: no symptoms HEENT: Repors: no symptoms Respiratory: Reports: no symptoms Gastrointestinal/Abdominal: Reports: no symptoms Allergies: Coded Allergies: No Known Allergies (Unverified , 04/28/18) Subjective Awake less sob tolerating po no cp nv or bleeding oob remains on 4 L o2 no cough or phlegm production Objective Last 24 Hour Vital Signs Date Time Temp Pulse Resp B/P (MAP) Pulse Ox O2 Delivery O2 Flow Rate FiO2 05/03/18 04:00 87 05/03/18 01:23 85 18 98 Nasal Cannula 4.0 36 05/03/18 01:13 84 18 95 Nasal Cannula 4.0 36 05/03/18 00:00 97.5 20 103/70 (81) 94 05/03/18 00:00 86 05/02/18 21:00 Nasal Cannula 4.0 05/02/18 20:38 101 20 97 Nasal Cannula 4.0 36 05/02/18 20:26 Nasal Cannula 4.0 36 05/02/18 20:26 96 22 93 Nasal Cannula 4.0 36 05/02/18 20:26 93 Nasal Cannula 4.0 36 05/02/18 20:00 92 05/02/18 20:00 97.0 18 97/65 (76) 97 05/02/18 16:00 97.2 20 116/65 (82) 92 05/02/18 16:00 102 05/02/18 13:28 94 20 98 Nasal Cannula 4.0 36 05/02/18 13:20 91 18 97 Nasal Cannula 4.0 36 05/02/18 12:00 81 05/02/18 12:00 97.2 81 20 122/64 (83) 96 05/02/18 09:00 Nasal Cannula 4.0 05/02/18 08:01 97 20 96 Nasal Cannula 4.0 36 05/02/18 08:00 97.6 87 20 119/65 (83) 95 05/02/18 08:00 87 05/02/18 07:54 94 18 95 Nasal Cannula 4.0 36 05/02/18 07:54 Nasal Cannula 4.0 36 05/02/18 07:54 95 Nasal Cannula 4.0 36 Intake and Output 05/02/18 05/03/18 19:00 07:00 Intake Total 630 ml 240 ml Output Total 550 ml Balance 630 ml -310 ml Intake Oral 630 ml 240 ml Output Urine Total 550 ml # Voids 4 1 General Appearance: cachetic Respiratory/Chest: crackles/rales Cardiovascular: normal rate, regular rhythm Abdomen: soft, non tender, no organomegaly Neurologic/Psychiatric: responsive Microbiology Date/Time Source Procedure Growth Status 05/01/18 11:40 Sputum Expectorated Gram Stain - Final Complete 05/01/18 11:40 Sputum Expectorated Sputum Culture - Final NORMAL UPPER RESPIRATORY GRETA PRESENT Complete Current Medications Medications (Trade) Dose Ordered Sig/Garrick Route PRN Reason Start Time Stop Time Status Last Admin Dose Admin Acetaminophen (Tylenol) 500 mg Q4H PRN ORAL Mild Pain/Temp > 100.5 05/01/18 18:30 05/28/18 18:29 Albuterol/ Ipratropium (Albuterol/ Ipratropium) 3 ml Q4H PRN HHN Shortness of Breath 05/01/18 18:30 05/04/18 18:29 Albuterol/ Ipratropium (Albuterol/ Ipratropium) 3 ml Q6HRT HHN 05/01/18 19:00 05/04/18 12:59 05/03/18 01:13 Azithromycin (Zithromax) 250 mg Q24H ORAL 05/02/18 14:00 05/06/18 13:59 05/02/18 13:22 Ceftriaxone Sodium 1 gm/ Dextrose 55 ml @ 110 mls/hr Q24H IVPB 05/02/18 14:00 05/06/18 13:59 05/02/18 14:32 Diazepam (Valium) 10 mg Q2H PRN ORAL For Anxiety 05/01/18 18:45 05/06/18 12:30 Docusate Sodium (Colace) 100 mg TWICE A DAY ORAL 05/02/18 09:00 05/29/18 08:59 05/02/18 18:14 Folic Acid (Folate) 2 mg DAILY ORAL 05/03/18 09:00 05/30/18 08:59 Heparin Sodium (Porcine) (Heparin 5000 units/ml) 5,000 units EVERY 12 HOURS SUBQ 05/01/18 21:00 05/29/18 20:59 05/02/18 21:16 Hydrocortisone (Anusol HC) 1 applic DAILYPRN PRN RECTAL hemorrhoid 05/01/18 21:00 05/28/18 20:59 Lidocaine (Xylocaine) 1 applic DAILYPRN PRN TOPIC hemorroidal pain 05/02/18 13:00 05/29/18 12:59 Midodrine (Pro-Amatine) 2.5 mg THREE TIMES A DAY ORAL 05/02/18 09:00 05/30/18 17:59 05/02/18 18:14 Pantoprazole (Protonix) 40 mg EVERY 12 HOURS ORAL 05/02/18 21:00 06/01/18 20:59 05/02/18 21:15 Patient Own Medication (Patient's Own Med) 1 ea DAILY ORAL 05/02/18 09:00 05/29/18 08:59 05/02/18 11:25 Prednisone (predniSONE) 40 mg BID ORAL 05/02/18 09:00 05/29/18 17:59 05/02/18 18:15 Thiamine HCl (Vitamin B1) 100 mg DAILY ORAL 05/02/18 09:00 05/30/18 08:59 05/02/18 10:06 Trimethoprim/ Sulfamethoxazole 20 ml/Dextrose 570 ml @ 380 mls/hr Q8HR@0200,1000,1800 IV 05/02/18 10:00 05/09/18 09:59 05/03/18 02:19 Swathi Campuzano DO May 03, 2018 07:01
--- NOTE | 2018-05-03 07:14 | NUR ---
HAND-OFF: Report given to Issac RYAN. Pt is resting in bed in stable condition. No acute distress noted. Endorsed plan of care.
--- NOTE | 2018-05-03 07:15 | NUR ---
NURSE NOTES: Report received from Ashtyn RYAN. Pt is resting in bed in stable condition and eating his breakfast. Pt is awake, alert, and oriented x4. Pt is on 3L O2 via nasal cannula and breathing is even and unlabored. No acute distress noted. Bed is in lowest position with brake engaged, side rails up x2, and bed alarm on. Call light and side table placed within reach. Will continue to monitor.
[2018-05-03 08:00] VITALS: BP 104/71
[2018-05-03] MEDS: Thiamine 100mg tab ORAL SCH (08:59)
[2018-05-03] MEDS: Docusate 100mg cap ORAL SCH ×2 (08:59→17:26)
[2018-05-03] MEDS: Heparin 5000 units/ml inj SUBQ SCH ×2 (09:03→21:43)
--- NOTE | 2018-05-03 11:24 | Infectious Diseases Prog Note ---
Assessment/Plan Assessment/Plan A 1. pneumonia r/o PCP, increased LDH 2. AIDS, cd4 18 3. seizures 4. asthma 5. Lung mass & Nodules P 1. continue ceftriaxone, azithromycin 2. continue Bactrim iv, steroids 3. will follow up cultures & serologies Subjective ROS Limited/Unobtainable: No Constitutional: Reports: no symptoms, other - Doing better Respiratory: Reports: shortness of breath, productive cough Gastrointestinal/Abdominal: Reports: constipation Genitourinary: Reports: no symptoms Allergies: Coded Allergies: No Known Allergies (Unverified , 04/28/18) Objective Vital Signs Last 24 Hour Vital Signs Date Time Temp Pulse Resp B/P (MAP) Pulse Ox O2 Delivery O2 Flow Rate FiO2 05/03/18 09:00 Nasal Cannula 4.0 05/03/18 08:06 86 21 98 Nasal Cannula 3.0 32 05/03/18 08:00 95 05/03/18 08:00 97.1 88 19 104/71 (82) 97 05/03/18 07:56 88 22 97 Nasal Cannula 3.0 32 05/03/18 07:56 97 Nasal Cannula 3.0 32 05/03/18 07:56 Nasal Cannula 3.0 32 05/03/18 04:00 87 05/03/18 04:00 78 20 05/03/18 01:23 85 18 98 Nasal Cannula 4.0 36 05/03/18 01:13 84 18 95 Nasal Cannula 4.0 36 05/03/18 00:00 97.5 20 103/70 (81) 94 05/03/18 00:00 86 05/02/18 21:00 Nasal Cannula 4.0 05/02/18 20:38 101 20 97 Nasal Cannula 4.0 36 05/02/18 20:26 Nasal Cannula 4.0 36 05/02/18 20:26 96 22 93 Nasal Cannula 4.0 36 05/02/18 20:26 93 Nasal Cannula 4.0 36 05/02/18 20:00 92 05/02/18 20:00 97.0 18 97/65 (76) 97 05/02/18 16:00 97.2 20 116/65 (82) 92 05/02/18 16:00 102 05/02/18 13:28 94 20 98 Nasal Cannula 4.0 36 05/02/18 13:20 91 18 97 Nasal Cannula 4.0 36 05/02/18 12:00 81 05/02/18 12:00 97.2 81 20 122/64 (83) 96 Height (Feet): 5 Height (Inches): 6.00 Weight (Pounds): 130 General Appearance: no acute distress, cachetic HEENT: mucous membranes moist Respiratory/Chest: lungs clear Cardiovascular: normal rate Abdomen: soft, non tender Extremities: no edema Neurologic/Psychiatric: alert, oriented x 3, responsive Microbiology Date/Time Source Procedure Growth Status 05/01/18 11:40 Sputum Expectorated Gram Stain - Final Complete 05/01/18 11:40 Sputum Expectorated Sputum Culture - Final NORMAL UPPER RESPIRATORY GRETA PRESENT Complete Current Medications Medications (Trade) Dose Ordered Sig/Garrick Route PRN Reason Start Time Stop Time Status Last Admin Dose Admin Acetaminophen (Tylenol) 500 mg Q4H PRN ORAL Mild Pain/Temp > 100.5 05/01/18 18:30 05/28/18 18:29 Albuterol/ Ipratropium (Albuterol/ Ipratropium) 3 ml Q4H PRN HHN Shortness of Breath 05/01/18 18:30 05/04/18 18:29 Albuterol/ Ipratropium (Albuterol/ Ipratropium) 3 ml Q6HRT HHN 05/01/18 19:00 05/04/18 12:59 05/03/18 07:56 Azithromycin (Zithromax) 250 mg Q24H ORAL 05/02/18 14:00 05/06/18 13:59 05/02/18 13:22 Ceftriaxone Sodium 1 gm/ Dextrose 55 ml @ 110 mls/hr Q24H IVPB 05/02/18 14:00 05/06/18 13:59 05/02/18 14:32 Diazepam (Valium) 10 mg Q2H PRN ORAL For Anxiety 05/01/18 18:45 05/06/18 12:30 Docusate Sodium (Colace) 100 mg TWICE A DAY ORAL 05/02/18 09:00 05/29/18 08:59 05/03/18 08:59 Folic Acid (Folate) 2 mg DAILY ORAL 05/03/18 09:00 05/30/18 08:59 05/03/18 08:59 Heparin Sodium (Porcine) (Heparin 5000 units/ml) 5,000 units EVERY 12 HOURS SUBQ 05/01/18 21:00 05/29/18 20:59 05/03/18 09:03 Hydrocortisone (Anusol HC) 1 applic DAILYPRN PRN RECTAL hemorrhoid 05/01/18 21:00 05/28/18 20:59 Lidocaine (Xylocaine) 1 applic DAILYPRN PRN TOPIC hemorroidal pain 05/02/18 13:00 05/29/18 12:59 Midodrine (Pro-Amatine) 2.5 mg THREE TIMES A DAY ORAL 05/02/18 09:00 05/30/18 17:59 05/03/18 08:59 Pantoprazole (Protonix) 40 mg EVERY 12 HOURS ORAL 05/02/18 21:00 06/01/18 20:59 05/03/18 08:59 Patient Own Medication (Patient's Own Med) 1 ea DAILY ORAL 05/02/18 09:00 05/29/18 08:59 05/03/18 08:58 Prednisone (predniSONE) 40 mg BID ORAL 05/02/18 09:00 05/29/18 17:59 05/03/18 08:59 Thiamine HCl (Vitamin B1) 100 mg DAILY ORAL 05/02/18 09:00 05/30/18 08:59 05/03/18 08:59 Trimethoprim/ Sulfamethoxazole 20 ml/Dextrose 570 ml @ 380 mls/hr Q8HR@0200,1000,1800 IV 05/02/18 10:00 05/09/18 09:59 05/03/18 10:20 Reginadl Kiran MD May 03, 2018 11:24
[2018-05-03 12:00] VITALS: BP 106/72
[2018-05-03] MEDS: Azithromycin 250mg tab ORAL SCH (13:32)
[2018-05-03] MEDS: cefTRIAXone 1 GM in D5W 55 ML IVPB SCH (13:32)
--- NOTE | 2018-05-03 15:30 | NUR ---
HAND-OFF: Report given to SHELBY Yousif.Patient in stable condition.
[2018-05-03 16:00] VITALS: BP 127/76
--- NOTE | 2018-05-03 17:47 | Consultation ---
History of Present Illness General Chief Complaint: Dyspnea/Respdistress Present Illness Allergies: Coded Allergies: No Known Allergies (Unverified , 04/28/18) Medication History Scheduled Docusate Sodium* (Docusate Sodium*), 100 MG ORAL TWICE A DAY, (Reported) Elviteg/Salma/Emtric/Tenofo Ala (Genvoya Tablet), 1 EACH PO DAILY, (Reported) Scheduled PRN Hydrocortisone 2% Cream (Anti-Itch 2% Cream), 28 GM TP for Hemorroidal Pain, ( Reported) Lidocaine HCL 2% Jelly* (Lidocaine Jelly 2%*), 5 ML TOPIC DAILY PRN for Hemorroidal Pain, (Reported) Patient History Healthcare decision maker N Resuscitation status Full Code Advanced Directive on File No Physical Exam Last 24 Hour Vital Signs Date Time Temp Pulse Resp B/P (MAP) Pulse Ox O2 Delivery O2 Flow Rate FiO2 05/03/18 13:10 87 21 100 Nasal Cannula 3.0 32 05/03/18 13:01 95 21 100 Nasal Cannula 3.0 32 05/03/18 13:01 95 21 Nasal Cannula 3.0 32 05/03/18 12:00 97.2 96 20 106/72 (83) 98 05/03/18 12:00 81 05/03/18 09:00 Nasal Cannula 4.0 05/03/18 08:06 86 21 98 Nasal Cannula 3.0 32 05/03/18 08:00 95 05/03/18 08:00 97.1 88 19 104/71 (82) 97 05/03/18 07:56 88 22 97 Nasal Cannula 3.0 32 05/03/18 07:56 97 Nasal Cannula 3.0 32 05/03/18 07:56 Nasal Cannula 3.0 32 05/03/18 04:00 87 05/03/18 04:00 78 20 05/03/18 01:23 85 18 98 Nasal Cannula 4.0 36 05/03/18 01:13 84 18 95 Nasal Cannula 4.0 36 05/03/18 00:00 97.5 20 103/70 (81) 94 05/03/18 00:00 86 05/02/18 21:00 Nasal Cannula 4.0 05/02/18 20:38 101 20 97 Nasal Cannula 4.0 36 05/02/18 20:26 Nasal Cannula 4.0 36 05/02/18 20:26 96 22 93 Nasal Cannula 4.0 36 05/02/18 20:26 93 Nasal Cannula 4.0 36 05/02/18 20:00 92 05/02/18 20:00 97.0 18 97/65 (76) 97 Intake and Output 05/02/18 05/03/18 19:00 07:00 Intake Total 630 ml 240 ml Output Total 550 ml Balance 630 ml -310 ml Intake Oral 630 ml 240 ml Output Urine Total 550 ml # Voids 4 1 Height (Feet): 5 Height (Inches): 6.00 Weight (Pounds): 130 Medications Current Medications Medications (Trade) Dose Ordered Sig/Garrick Route PRN Reason Start Time Stop Time Status Last Admin Dose Admin Acetaminophen (Tylenol) 500 mg Q4H PRN ORAL Mild Pain/Temp > 100.5 05/01/18 18:30 05/28/18 18:29 Albuterol/ Ipratropium (Albuterol/ Ipratropium) 3 ml Q4H PRN HHN Shortness of Breath 05/01/18 18:30 05/04/18 18:29 Albuterol/ Ipratropium (Albuterol/ Ipratropium) 3 ml Q6HRT HHN 05/01/18 19:00 05/04/18 12:59 05/03/18 13:00 Azithromycin (Zithromax) 250 mg Q24H ORAL 05/02/18 14:00 05/06/18 13:59 05/03/18 13:32 Ceftriaxone Sodium 1 gm/ Dextrose 55 ml @ 110 mls/hr Q24H IVPB 05/02/18 14:00 05/06/18 13:59 05/03/18 13:32 Diazepam (Valium) 10 mg Q2H PRN ORAL For Anxiety 05/01/18 18:45 05/06/18 12:30 Docusate Sodium (Colace) 100 mg TWICE A DAY ORAL 05/02/18 09:00 05/29/18 08:59 05/03/18 17:26 Folic Acid (Folate) 2 mg DAILY ORAL 05/03/18 09:00 05/30/18 08:59 05/03/18 08:59 Heparin Sodium (Porcine) (Heparin 5000 units/ml) 5,000 units EVERY 12 HOURS SUBQ 05/01/18 21:00 05/29/18 20:59 05/03/18 09:03 Hydrocortisone (Anusol HC) 1 applic DAILYPRN PRN RECTAL hemorrhoid 05/01/18 21:00 05/28/18 20:59 Lidocaine (Xylocaine) 1 applic DAILYPRN PRN TOPIC hemorroidal pain 05/02/18 13:00 05/29/18 12:59 Midodrine (Pro-Amatine) 2.5 mg THREE TIMES A DAY ORAL 05/02/18 09:00 05/30/18 17:59 05/03/18 17:27 Pantoprazole (Protonix) 40 mg EVERY 12 HOURS ORAL 05/02/18 21:00 06/01/18 20:59 05/03/18 08:59 Patient Own Medication (Patient's Own Med) 1 ea DAILY ORAL 05/02/18 09:00 05/29/18 08:59 05/03/18 08:58 Prednisone (predniSONE) 40 mg BID ORAL 05/02/18 09:00 05/29/18 17:59 05/03/18 17:27 Thiamine HCl (Vitamin B1) 100 mg DAILY ORAL 05/02/18 09:00 05/30/18 08:59 05/03/18 08:59 Trimethoprim/ Sulfamethoxazole 20 ml/Dextrose 570 ml @ 380 mls/hr Q8HR@0200,1000,1800 IV 05/02/18 10:00 05/09/18 09:59 05/03/18 17:25 Assessment/Plan Assessment/Plan Hematology Consultation DOS: 05/03/18 RFC: Lung mass mike MONTAGUE MD: Kirill, A ID 38y old with a history of HIV/AIDS. He states that he hasn't been taking care of himself and hasn't been following on with his infectious disease specialist. He states that his life has been busy. He did recently restart anti- retroviral therapy. He complains of shortness of breath that is persistent and constant. He states he noted this worsening over the past couple days. He has had some coughing and congestion. Denies fever or chills. He states he's been fatigued and has had a poor appetite. He has also had weight loss. He denies chest pain. He denies abdominal pain. He has no other complaints. Coded Allergies: No Known Allergies (Unverified , 04/28/18) Past Medical History: see triage record, asthma, seizures, HIV - AIDS, other - Hemorrhoids Social History: Denies: smoking, alcohol use, drug use Reviewed Nursing Documentation: PMH: Agreed; PSxH: Agreed Hx Asthma: Yes Hx Seizures: Yes Review of Systems: negative except mentioned in HPI Vital Signs Last Vital Signs Date Time Temp Pulse Resp B/P (MAP) Pulse Ox O2 Delivery O2 Flow Rate FiO2 05/03/18 13:10 87 21 100 Nasal Cannula 3.0 32 05/03/18 12:00 97.2 106/72 (83) Gen: reviewed, normal General Appearance: no apparent distress, alert Head: normocephalic, atraumatic Eyes: bilateral eye normal inspection, bilateral eye PERRL ENT: hearing grossly normal, normal pharynx, no angioedema, normal voice Neck: full range of motion, supple/symm/no masses Respiratory: chest non-tender, lungs clear, normal breath sounds ++ tachypnea Cardiovascular: regular rate, rhythm, no edema Gastrointestinal: normal bowel sounds, non tender, soft, non-distended, no guarding, no rebound Musculoskeletal: back normal, gait/station normal, normal range of motion, non- tender Neurologic: alert, oriented x3, responsive Psychiatric: judgement/insight normal, memory normal Skin: normal color, no rash, warm/dry Current Medications Medications (Trade) Dose Ordered Sig/Garrick Route PRN Reason Start Time Stop Time Status Last Admin Dose Admin Acetaminophen (Tylenol) 500 mg Q4H PRN ORAL Mild Pain/Temp > 100.5 05/01/18 18:30 05/28/18 18:29 Albuterol/ Ipratropium (Albuterol/ Ipratropium) 3 ml Q4H PRN HHN Shortness of Breath 05/01/18 18:30 05/04/18 18:29 Albuterol/ Ipratropium (Albuterol/ Ipratropium) 3 ml Q6HRT HHN 05/01/18 19:00 05/04/18 12:59 05/03/18 13:00 Azithromycin (Zithromax) 250 mg Q24H ORAL 05/02/18 14:00 05/06/18 13:59 05/03/18 13:32 Ceftriaxone Sodium 1 gm/ Dextrose 55 ml @ 110 mls/hr Q24H IVPB 05/02/18 14:00 05/06/18 13:59 05/03/18 13:32 Diazepam (Valium) 10 mg Q2H PRN ORAL For Anxiety 05/01/18 18:45 05/06/18 12:30 Docusate Sodium (Colace) 100 mg TWICE A DAY ORAL 05/02/18 09:00 05/29/18 08:59 05/03/18 17:26 Folic Acid (Folate) 2 mg DAILY ORAL 05/03/18 09:00 05/30/18 08:59 05/03/18 08:59 Heparin Sodium (Porcine) (Heparin 5000 units/ml) 5,000 units EVERY 12 HOURS SUBQ 05/01/18 21:00 05/29/18 20:59 05/03/18 09:03 Hydrocortisone (Anusol HC) 1 applic DAILYPRN PRN RECTAL hemorrhoid 05/01/18 21:00 05/28/18 20:59 Lidocaine (Xylocaine) 1 applic DAILYPRN PRN TOPIC hemorroidal pain 05/02/18 13:00 05/29/18 12:59 Midodrine (Pro-Amatine) 2.5 mg THREE TIMES A DAY ORAL 05/02/18 09:00 05/30/18 17:59 05/03/18 17:27 Pantoprazole (Protonix) 40 mg EVERY 12 HOURS ORAL 05/02/18 21:00 06/01/18 20:59 05/03/18 08:59 Patient Own Medication (Patient's Own Med) 1 ea DAILY ORAL 05/02/18 09:00 05/29/18 08:59 05/03/18 08:58 Prednisone (predniSONE) 40 mg BID ORAL 05/02/18 09:00 05/29/18 17:59 05/03/18 17:27 Thiamine HCl (Vitamin B1) 100 mg DAILY ORAL 05/02/18 09:00 05/30/18 08:59 05/03/18 08:59 Trimethoprim/ Sulfamethoxazole 20 ml/Dextrose 570 ml @ 380 mls/hr Q8HR@0200,1000,1800 IV 05/02/18 10:00 05/09/18 09:59 05/03/18 17:25 Laboratory Tests Test 04/28/18 11:30 04/28/18 12:30 White Blood Count 3.4 K/UL (4.8-10.8) L Red Blood Count 3.55 M/UL (4.70-6.10) L Hemoglobin 12.8 G/DL (14.2-18.0) L Hematocrit 38.1 % (42.0-52.0) L Mean Corpuscular Volume 107 FL (80-99) H Mean Corpuscular Hemoglobin 36.0 PG (27.0-31.0) H Mean Corpuscular Hemoglobin Concent 33.5 G/DL (32.0-36.0) Red Cell Distribution Width 14.2 % (11.6-14.8) Platelet Count 274 K/UL (150-450) Mean Platelet Volume 6.9 FL (6.5-10.1) Neutrophils (%) (Auto) % (45.0-75.0) Lymphocytes (%) (Auto) % (20.0-45.0) Monocytes (%) (Auto) % (1.0-10.0) Eosinophils (%) (Auto) % (0.0-3.0) Basophils (%) (Auto) % (0.0-2.0) Differential Total Cells Counted 100 Neutrophils % (Manual) 76 % (45-75) H Lymphocytes % (Manual) 14 % (20-45) L Monocytes % (Manual) 10 % (1-10) Eosinophils % (Manual) 0 % (0-3) Basophils % (Manual) 0 % (0-2) Band Neutrophils 0 % (0-8) Platelet Estimate Adequate Platelet Morphology Normal Macrocytosis 1+ Sodium Level 132 MMOL/L (136-145) L Potassium Level 4.3 MMOL/L (3.5-5.1) Chloride Level 97 MMOL/L (98-107) L Carbon Dioxide Level 26 MMOL/L (21-32) Anion Gap 9 mmol/L (5-15) Blood Urea Nitrogen 16 mg/dL (7-18) Creatinine 0.9 MG/DL (0.55-1.30) Estimate Glomerular Filtration Rate > 60 mL/min (>60) Glucose Level 85 MG/DL (74-106) Calcium Level 8.8 MG/DL (8.5-10.1) Total Bilirubin 0.4 MG/DL (0.2-1.0) Aspartate Amino Transferase (AST) 98 U/L (15-37) H Alanine Aminotransferase (ALT) 22 U/L (12-78) Alkaline Phosphatase 126 U/L (46-116) H Troponin I 0.000 ng/mL (0.000-0.056) Total Protein 7.9 G/DL (6.4-8.2) Albumin 2.0 G/DL (3.4-5.0) L Globulin 5.9 g/dL Albumin/Globulin Ratio 0.3 (1.0-2.7) L Urine Color Brown Urine Appearance Clear Urine pH 6.5 (4.5-8.0) Urine Specific [place] 1.010 (1.005-1.035) Urine Protein 3+ (NEGATIVE) H Urine Glucose (UA) Negative (NEGATIVE) Urine Ketones 1+ (NEGATIVE) H Urine Blood Negative (NEGATIVE) Urine Nitrite Negative (NEGATIVE) Urine Bilirubin Negative (NEGATIVE) Urine Urobilinogen 1 MG/DL (0.0-1.0) H Urine Leukocyte Esterase 1+ (NEGATIVE) H Urine RBC 0-2 /HPF (0 - 0) H Urine WBC 0-2 /HPF (0 - 0) Urine Squamous Epithelial Cells Occasional /LPF Urine Bacteria Occasional /HPF (NONE) Urine Hyaline Casts 0-2 /LPF (NONE) H Microbiology Date/Time Source Procedure Growth Status 04/28/18 11:30 Nasal Nares Influenza Types A,B Antigen (BREEZY) - Final Complete Assessment and Recs: #. Lung mass eval -- has been seen by pulm and ID, 1. Bilateral pulmonary infiltrates, CAP versus PJP pneumonia versus other opportunistic infection or atypical infection. 2. Scattered GGO's and pulmonary nodules, likely infectious , possible underlying neoplastic process --> recommend abx as per ID, and pulm steriods --> HAART meds has been started --> can monitor for improvement resolution, recheck CT in 2 weeks --> biopsy of the lung can be ordered if no resolution --> needs outpatient followup and have discussed this with patient # Anemia of chronic diseas due to underlying chronic medical issues, multifactorial --> Anemia workup has been ordered/reviewed --> No evidence of hemolysis is noted, peripheral smear has been reviewed. --> Hgb goal >7. Transfuse prn. --> Epogen can be considered given haart meds started --> Medications have been reviewed #. AIDS (CD4 count 18), recently back on antiretroviral therapy --> as per ID team, management. #. Leukopenia due to hiv/aids #. Pyuria. #. GERD The timing of this note does not necessarily reflect the time of the patient was seen. Greatly appreciate consultation! Vinayak Cardona MD May 03, 2018 17:47
--- NOTE | 2018-05-03 18:35 | Nephrology Progress Note ---
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 AIDs Nephropathy Sz Asthma HIV / AIDS Anemia Low Na Plan 24 H urine Protein being collected under ! gram Albumin followed by Lasix for low Na given 05/02 Anemia cotter, low folate low bp start Midodrine U os and S os for eval of low Na per orders Subjective ROS Limited/Unobtainable: No Constitutional: Reports: malaise, weakness Objective Objective Last 24 Hour Vital Signs Date Time Temp Pulse Resp B/P (MAP) Pulse Ox O2 Delivery O2 Flow Rate FiO2 05/03/18 16:00 97.6 87 21 127/76 (93) 94 05/03/18 16:00 92 05/03/18 13:10 87 21 100 Nasal Cannula 3.0 32 05/03/18 13:01 95 21 100 Nasal Cannula 3.0 32 05/03/18 13:01 95 21 Nasal Cannula 3.0 32 05/03/18 12:00 97.2 96 20 106/72 (83) 98 05/03/18 12:00 81 05/03/18 09:00 Nasal Cannula 4.0 05/03/18 08:06 86 21 98 Nasal Cannula 3.0 32 05/03/18 08:00 95 05/03/18 08:00 97.1 88 19 104/71 (82) 97 05/03/18 07:56 88 22 97 Nasal Cannula 3.0 32 05/03/18 07:56 97 Nasal Cannula 3.0 32 05/03/18 07:56 Nasal Cannula 3.0 32 05/03/18 04:00 87 05/03/18 04:00 78 20 05/03/18 01:23 85 18 98 Nasal Cannula 4.0 36 05/03/18 01:13 84 18 95 Nasal Cannula 4.0 36 05/03/18 00:00 97.5 20 103/70 (81) 94 05/03/18 00:00 86 05/02/18 21:00 Nasal Cannula 4.0 05/02/18 20:38 101 20 97 Nasal Cannula 4.0 36 05/02/18 20:26 Nasal Cannula 4.0 36 05/02/18 20:26 96 22 93 Nasal Cannula 4.0 36 05/02/18 20:26 93 Nasal Cannula 4.0 36 05/02/18 20:00 92 05/02/18 20:00 97.0 18 97/65 (76) 97 Intake and Output 05/02/18 05/03/18 19:00 07:00 Intake Total 630 ml 240 ml Output Total 550 ml Balance 630 ml -310 ml Intake Oral 630 ml 240 ml Output Urine Total 550 ml # Voids 4 1 Height (Feet): 5 Height (Inches): 6.00 Weight (Pounds): 130 General Appearance: no apparent distress Objective no change Lukasz Eric MD May 03, 2018 18:35
--- NOTE | 2018-05-03 19:30 | NUR ---
NURSE NOTES: Report received from Meagan Cervantes RN. Pt is sitting up in chair at bedside in stable condition. Pt is awake, alert, and oriented x4. Pt is on 3L O2 via nasal cannula and breathing is even and unlabored. O2 saturation noted to be 98%. No acute distress noted. IV site is asymptomatic, patent, and intact. Bed is in lowest position with brake engaged, side rails up x3, and bed alarm on. Call light and side table placed within reach. Will continue to monitor.
[2018-05-03 20:00] VITALS: BP 120/77
[2018-05-03] MEDS ORDERED: NS 275ml ONE (20:06)
--- NOTE | 2018-05-03 21:35 | General Progress Note ---
Assessment/Plan Problem List: (1) Dyspnea ICD Codes: R06.00 - Dyspnea, unspecified SNOMED: 748921062 (2) Pneumonia ICD Codes: J18.9 - Pneumonia, unspecified organism SNOMED: 506098577 (3) Pulmonary edema ICD Codes: J81.1 - Chronic pulmonary edema SNOMED: 13796874 (4) AIDS nephropathy ICD Codes: B20 - Human immunodeficiency virus [HIV] disease; N28.9 - Disorder of kidney and ureter, unspecified SNOMED: 61170847, 064591823 (5) AIDS ICD Codes: B20 - Human immunodeficiency virus [HIV] disease SNOMED: 45587860 (6) Hypoalbuminemia ICD Codes: E88.09 - Other disorders of plasma-protein metabolism, not elsewhere classified SNOMED: 658925220 (7) Ground glass opacity present on imaging of lung ICD Codes: R91.8 - Other nonspecific abnormal finding of lung field SNOMED: 523299059 Status: progressing Assessment/Plan pna hypoxia resolved severe pna improving abx per id hiv wasting syndrome reviewed chart and labs and meds obs Subjective ROS Limited/Unobtainable: Yes Allergies: Coded Allergies: No Known Allergies (Unverified , 04/28/18) Objective Last 24 Hour Vital Signs Date Time Temp Pulse Resp B/P (MAP) Pulse Ox O2 Delivery O2 Flow Rate FiO2 05/03/18 20:38 94 Nasal Cannula 3.0 32 05/03/18 20:37 93 18 94 Nasal Cannula 3.0 32 05/03/18 20:26 Nasal Cannula 3.0 32 05/03/18 20:26 100 20 90 Room Air 21 05/03/18 16:00 97.6 87 21 127/76 (93) 94 05/03/18 16:00 92 05/03/18 13:10 87 21 100 Nasal Cannula 3.0 32 05/03/18 13:01 95 21 100 Nasal Cannula 3.0 32 05/03/18 13:01 95 21 Nasal Cannula 3.0 32 05/03/18 12:00 97.2 96 20 106/72 (83) 98 05/03/18 12:00 81 05/03/18 09:00 Nasal Cannula 4.0 05/03/18 08:06 86 21 98 Nasal Cannula 3.0 32 05/03/18 08:00 95 05/03/18 08:00 97.1 88 19 104/71 (82) 97 05/03/18 07:56 88 22 97 Nasal Cannula 3.0 32 05/03/18 07:56 97 Nasal Cannula 3.0 32 05/03/18 07:56 Nasal Cannula 3.0 32 05/03/18 04:00 87 05/03/18 04:00 78 20 05/03/18 01:23 85 18 98 Nasal Cannula 4.0 36 05/03/18 01:13 84 18 95 Nasal Cannula 4.0 36 05/03/18 00:00 97.5 20 103/70 (81) 94 05/03/18 00:00 86 Intake and Output 05/02/18 05/03/18 19:00 07:00 Intake Total 630 ml 240 ml Output Total 550 ml Balance 630 ml -310 ml Intake Oral 630 ml 240 ml Output Urine Total 550 ml # Voids 4 1 Laboratory Tests 05/03/18 20:50: Hepatitis A IgM Antibody [Pending], Hepatitis B Surface Antigen [Pending], Hepatitis B Core IgM Antibody [Pending], Hepatitis C Antibody [Pending] Height (Feet): 5 Height (Inches): 6.00 Weight (Pounds): 130 Neck: supple Cardiovascular: normal rate Respiratory/Chest: lungs clear Abdomen: soft Andreia Roy MD May 03, 2018 21:35
--- NOTE | 2018-05-03 22:49 | General Progress Note ---
Assessment/Plan Problem List: (1) Depressive disorder ICD Codes: F32.9 - Major depressive disorder, single episode, unspecified SNOMED: 61362780 Assessment/Plan the pt has capacity to make decisions. cont current meds Subjective Neurologic/Psychiatric: Reports: anxiety, depressed, emotional problems Allergies: Coded Allergies: No Known Allergies (Unverified , 04/28/18) Objective Last 24 Hour Vital Signs Date Time Temp Pulse Resp B/P (MAP) Pulse Ox O2 Delivery O2 Flow Rate FiO2 05/03/18 21:00 Nasal Cannula 3.0 05/03/18 20:38 94 Nasal Cannula 3.0 32 05/03/18 20:37 93 18 94 Nasal Cannula 3.0 32 05/03/18 20:26 Nasal Cannula 3.0 32 05/03/18 20:26 100 20 90 Room Air 21 05/03/18 20:00 97.0 84 20 120/77 (91) 98 05/03/18 16:00 97.6 87 21 127/76 (93) 94 05/03/18 16:00 92 05/03/18 13:10 87 21 100 Nasal Cannula 3.0 32 05/03/18 13:01 95 21 100 Nasal Cannula 3.0 32 05/03/18 13:01 95 21 Nasal Cannula 3.0 32 05/03/18 12:00 97.2 96 20 106/72 (83) 98 05/03/18 12:00 81 05/03/18 09:00 Nasal Cannula 4.0 05/03/18 08:06 86 21 98 Nasal Cannula 3.0 32 05/03/18 08:00 95 05/03/18 08:00 97.1 88 19 104/71 (82) 97 05/03/18 07:56 88 22 97 Nasal Cannula 3.0 32 05/03/18 07:56 97 Nasal Cannula 3.0 32 05/03/18 07:56 Nasal Cannula 3.0 32 05/03/18 04:00 87 05/03/18 04:00 78 20 05/03/18 01:23 85 18 98 Nasal Cannula 4.0 36 05/03/18 01:13 84 18 95 Nasal Cannula 4.0 36 05/03/18 00:00 97.5 20 103/70 (81) 94 05/03/18 00:00 86 Intake and Output 05/02/18 05/03/18 19:00 07:00 Intake Total 630 ml 240 ml Output Total 550 ml Balance 630 ml -310 ml Intake Oral 630 ml 240 ml Output Urine Total 550 ml # Voids 4 1 Laboratory Tests 05/03/18 20:50: Hepatitis A IgM Antibody [Pending], Hepatitis B Surface Antigen [Pending], Hepatitis B Core IgM Antibody [Pending], Hepatitis C Antibody [Pending] Height (Feet): 5 Height (Inches): 6.00 Weight (Pounds): 130 General Appearance: WD/WN, no apparent distress, alert Elver Almaguer MD May 03, 2018 22:49
[2018-05-04] VITALS: BP 106/71
[2018-05-04] MEDS: Albuterol/Ipratropium 3ml neb HHN SCH ×2 (01:33→07:00)
[2018-05-04] MEDS: Trimethoprim/Sulfamethoxazole 20 ML in D5W 500ml 550 ML IV SCH ×3 (02:03→18:59)
[2018-05-04 04:00] VITALS: BP 106/68
--- NOTE | 2018-05-04 07:12 | NUR ---
HAND-OFF: Report given to Meagan Cervantes RN. Pt is resting in bed in stable condition. No acute distress noted. Endorsed plan of care.
[2018-05-04 07:13] LABS: ALANINE AMINOTRANSFERASE 30 U/L (12-78); ALBUMIN 2.4 G/DL (3.4-5.0); ALBUMIN/GLOBULIN RATIO 0.5 (1.0-2.7); ALKALINE PHOSPHATASE 94 U/L (46-116); ANION GAP 10 mmol/L (5-15); ASPARTATE AMINO TRANSFERASE 38 U/L (15-37); BILIRUBIN,TOTAL 0.1 MG/DL (0.2-1.0); BLOOD UREA NITROGEN 11 mg/dL (7-18); CALCIUM 9.1 MG/DL (8.5-10.1); CARBON DIOXIDE 25 MMOL/L (21-32); CHLORIDE 95 MMOL/L (98-107); CREATININE 0.9 MG/DL (0.55-1.30); POTASSIUM 4.4 MMOL/L (3.5-5.1); SODIUM 130 MMOL/L (136-145)
[2018-05-04 08:00] VITALS: BP 109/71
--- NOTE | 2018-05-04 08:48 | NUR ---
CASE MANAGEMENT:REVIEW 05/02/18 SI: PNEUMONIA. WASTING SYNDROME 97.2 102 20 116/65 92% ON 4L/NC WBC-2.4 H/H-11.2/32.8 GLUCOSE+114 IS: IV PROTONIX QD IV BACTRIM Q8HRS IV ROCEPHIN Q24 IV LASIX X1 : SDU 05/03/18 SI: PNEUMONIA. WASTING SYNDROME 97.1 88 19 104/71 97% ON 3L/NC IS: PROTONIX PO Q12 IV ROCEPHIN Q24 IV BACTRIM Q8HRS AZITHROMYCIN PO Q24 MIDODRINE PO TID PREDNISONE PO BID HEPARIN SQ Q12 : SDU 05/04/18 SI: PNEUMONIA. WASTING SYNDROME 97.1 88 19 104/71 97% ON 3L/NC IS: PROTONIX PO Q12 IV ROCEPHIN Q24 IV BACTRIM Q8HRS AZITHROMYCIN PO Q24 MIDODRINE PO TID PREDNISONE PO BID HEPARIN SQ Q12 : NOW ON TELEMETRY UNIT
[2018-05-04] MEDS: Docusate 100mg cap ORAL SCH ×2 (08:57→19:00)
[2018-05-04] MEDS: Thiamine 100mg tab ORAL SCH (09:01)
[2018-05-04] MEDS: Heparin 5000 units/ml inj SUBQ SCH ×2 (09:05→21:40)
--- NOTE | 2018-05-04 10:38 | NUR ---
ST NOTE: SWALLOW/SPEECH/LANGUAGE/COGNITIONS STATUS: PT SEEN AT BEDSIDE IN AM. PER CHICA RYAN, PT WANTS TO CHANGE THE DIET, PT DISLIKES THICKENED LIQUIDS AND PUREED FOOD. PER PT, PT'S FAMILY(SISTER) BROUGHT PT FOOD FROM OUTSIDE, AND PT HAS BEEN TOLERATING WITHOUT OVERT S/S OF ASPIRATION. PT DENIED ANY SWALLOWING DIFFICULTY. PT WITH NC(3L). GIVEN THIN LIQUIDS VIA CUP AND CRACKER X 2. GOOD MASTICATION TIME, GOOD ORAL TRANSIT TIME AND OROPHARYNGEAL TRANSIT TIME, GOOD LARYNGEAL ELEVATION, NO OVERT S/S OF ASPIRATION, NO SIGNIFICANT RESP DISTRESS WAS NOTED. PER PT'S REQUEST, UPGRADE PT'S DIET TO REGULAR WITH THIN LIQUIDS. EDUCATED PT RE: ASPIRATION/REFLUX PRECAUTIONS. PT VERBALIZED THE GOOD UNDERSTANDING OF INFO GIVEN. UPDATED ASPIRATION/REFLUX PRECAUTIONS SIGN. D/W PT AND CHICA RYAN. Addendum: 05/04/18 at 1128 by SAP[employer] FAM [employer] CLE[employer]ER RECEIVED TELEPHONE ORDER FROM DR. STAHL TO UPGRADE PT'S DIET TO REGULAR WITH THIN LIQUIDS. WILL FOLLOW.
[2018-05-04] MEDS ORDERED: NaCl 3% 500ml 500 ML IV ONE (11:30)
[2018-05-04 12:00] VITALS: BP 115/65
--- NOTE | 2018-05-04 12:50 | NUR ---
RADIOLOGY DEPT., CHEST X-RAY DONE.-P.DYE
--- NOTE | 2018-05-04 12:54 | Nephrology Progress Note ---
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 AIDs Nephropathy Sz Asthma HIV / AIDS Anemia Low Na Plan 24 H urine Protein being collected under ! gram Albumin followed by Dejah for low Na today Anemia cotter, low folate low bp start Midodrine U os and S os for eval of low Na per orders Subjective ROS Limited/Unobtainable: No Constitutional: Reports: malaise, weakness Objective Objective Last 24 Hour Vital Signs Date Time Temp Pulse Resp B/P (MAP) Pulse Ox O2 Delivery O2 Flow Rate FiO2 05/04/18 12:00 87 05/04/18 12:00 97.6 87 20 115/65 (82) 95 05/04/18 09:00 Nasal Cannula 4.0 05/04/18 08:00 97.1 94 19 109/71 (84) 97 05/04/18 08:00 93 05/04/18 07:49 Nasal Cannula 3.0 32 05/04/18 07:49 97 Nasal Cannula 3.0 32 05/04/18 07:49 Nasal Cannula 3.0 32 05/04/18 07:49 Room Air 21 05/04/18 04:00 96 05/04/18 04:00 97.0 90 20 106/68 (81) 96 05/04/18 01:45 80 18 96 Nasal Cannula 3.0 32 05/04/18 01:33 88 18 95 Room Air 21 05/04/18 00:00 98.1 81 20 106/71 (83) 97 05/04/18 00:00 84 05/03/18 21:00 Nasal Cannula 3.0 05/03/18 20:38 94 Nasal Cannula 3.0 32 05/03/18 20:37 93 18 94 Nasal Cannula 3.0 32 05/03/18 20:26 Nasal Cannula 3.0 32 05/03/18 20:26 100 20 90 Room Air 21 05/03/18 20:00 97.0 84 20 120/77 (91) 98 05/03/18 20:00 84 05/03/18 16:00 97.6 87 21 127/76 (93) 94 05/03/18 16:00 92 05/03/18 13:10 87 21 100 Nasal Cannula 3.0 32 05/03/18 13:01 95 21 100 Nasal Cannula 3.0 32 05/03/18 13:01 95 21 Nasal Cannula 3.0 32 Intake and Output 05/03/18 05/04/18 19:00 07:00 Intake Total 720 ml 60 ml Output Total 1000 ml Balance -280 ml 60 ml Intake Oral 720 ml 60 ml Output Urine Total 1000 ml # Bowel Movements 1 Laboratory Tests 05/03/18 20:50: Hepatitis A IgM Antibody [Pending], Hepatitis B Surface Antigen [Pending], Hepatitis B Core IgM Antibody [Pending], Hepatitis C Antibody [Pending] 05/04/18 04:45: Sodium Level 130L, Potassium Level 4.4, Chloride Level 95L, Carbon Dioxide Level 25, Anion Gap 10, Blood Urea Nitrogen 11, Creatinine 0.9, Estimat Glomerular Filtration Rate > 60, Glucose Level 96, Osmolality 274L, Uric Acid 1.7L, Calcium Level 9.1, Phosphorus Level 3.0, Magnesium Level 2.0, Total Bilirubin 0.1L, Aspartate Amino Transf (AST/SGOT) 38H, Alanine Aminotransferase (ALT/SGPT) 30, Alkaline Phosphatase 94, Total Protein 7.4, Albumin 2.4L, Globulin 5.0, Albumin/Globulin Ratio 0.5L Height (Feet): 5 Height (Inches): 6.00 Weight (Pounds): 130 General Appearance: no apparent distress Cardiovascular: tachycardia Respiratory/Chest: decreased breath sounds Abdomen: distended Objective no change Lukasz Eric MD May 04, 2018 12:54
--- NOTE | 2018-05-04 14:47 | Infectious Diseases Prog Note ---
Assessment/Plan Assessment/Plan A 1. pneumonia r/o PCP, increased LDH 2. AIDS, cd4 18 3. seizures 4. asthma 5. Lung mass & Nodules P 1. continue ceftriaxone, azithromycin 2. continue Bactrim iv, steroids 3. will follow up cultures & serologies 4. Continue ART with Genvoya Subjective ROS Limited/Unobtainable: No Constitutional: Reports: other - feels better Respiratory: Reports: dry cough Genitourinary: Reports: no symptoms, other - better appetite Neurologic: Reports: no symptoms Musculoskeletal: Reports: no symptoms Allergies: Coded Allergies: No Known Allergies (Unverified , 04/28/18) Objective Vital Signs Last 24 Hour Vital Signs Date Time Temp Pulse Resp B/P (MAP) Pulse Ox O2 Delivery O2 Flow Rate FiO2 05/04/18 12:00 87 05/04/18 12:00 97.6 87 20 115/65 (82) 95 05/04/18 09:00 Nasal Cannula 4.0 05/04/18 08:00 97.1 94 19 109/71 (84) 97 05/04/18 08:00 93 05/04/18 07:49 Nasal Cannula 3.0 32 05/04/18 07:49 97 Nasal Cannula 3.0 32 05/04/18 07:49 Nasal Cannula 3.0 32 05/04/18 07:49 Room Air 21 05/04/18 04:00 96 05/04/18 04:00 97.0 90 20 106/68 (81) 96 05/04/18 01:45 80 18 96 Nasal Cannula 3.0 32 05/04/18 01:33 88 18 95 Room Air 21 05/04/18 00:00 98.1 81 20 106/71 (83) 97 05/04/18 00:00 84 05/03/18 21:00 Nasal Cannula 3.0 05/03/18 20:38 94 Nasal Cannula 3.0 32 05/03/18 20:37 93 18 94 Nasal Cannula 3.0 32 05/03/18 20:26 Nasal Cannula 3.0 32 05/03/18 20:26 100 20 90 Room Air 21 05/03/18 20:00 97.0 84 20 120/77 (91) 98 05/03/18 20:00 84 05/03/18 16:00 97.6 87 21 127/76 (93) 94 05/03/18 16:00 92 Height (Feet): 5 Height (Inches): 6.00 Weight (Pounds): 130 General Appearance: cachetic HEENT: mucous membranes moist Respiratory/Chest: lungs clear Cardiovascular: normal rate Abdomen: soft, non tender Extremities: no edema Neurologic/Psychiatric: alert, responsive Musculoskeletal: atrophy Laboratory Tests Test 05/03/18 20:50 05/04/18 04:45 Hepatitis A IgM Antibody Pending Hepatitis B Surface Antigen Pending Hepatitis B Core IgM Antibody Pending Hepatitis C Antibody Pending Sodium Level 130 MMOL/L (136-145) L Potassium Level 4.4 MMOL/L (3.5-5.1) Chloride Level 95 MMOL/L (98-107) L Carbon Dioxide Level 25 MMOL/L (21-32) Anion Gap 10 mmol/L (5-15) Blood Urea Nitrogen 11 mg/dL (7-18) Creatinine 0.9 MG/DL (0.55-1.30) Estimat Glomerular Filtration Rate > 60 mL/min (>60) Glucose Level 96 MG/DL (74-106) Osmolality 274 mOsm/kg (297-317) L Uric Acid 1.7 MG/DL (2.6-7.2) L Calcium Level 9.1 MG/DL (8.5-10.1) Phosphorus Level 3.0 MG/DL (2.5-4.9) Magnesium Level 2.0 MG/DL (1.8-2.4) Total Bilirubin 0.1 MG/DL (0.2-1.0) L Aspartate Amino Transf (AST/SGOT) 38 U/L (15-37) H Alanine Aminotransferase (ALT/SGPT) 30 U/L (12-78) Alkaline Phosphatase 94 U/L (46-116) Total Protein 7.4 G/DL (6.4-8.2) Albumin 2.4 G/DL (3.4-5.0) L Globulin 5.0 g/dL Albumin/Globulin Ratio 0.5 (1.0-2.7) L Current Medications Medications (Trade) Dose Ordered Sig/Garrick Route PRN Reason Start Time Stop Time Status Last Admin Dose Admin Acetaminophen (Tylenol) 500 mg Q4H PRN ORAL Mild Pain/Temp > 100.5 05/01/18 18:30 05/28/18 18:29 Albuterol/ Ipratropium (Albuterol/ Ipratropium) 3 ml Q4H PRN HHN Shortness of Breath 05/01/18 18:30 05/04/18 18:29 Azithromycin (Zithromax) 250 mg Q24H ORAL 05/02/18 14:00 05/06/18 13:59 05/03/18 13:32 Ceftriaxone Sodium 1 gm/ Dextrose 55 ml @ 110 mls/hr Q24H IVPB 05/02/18 14:00 05/06/18 13:59 05/03/18 13:32 Diazepam (Valium) 10 mg Q2H PRN ORAL For Anxiety 05/01/18 18:45 05/06/18 12:30 Docusate Sodium (Colace) 100 mg TWICE A DAY ORAL 05/02/18 09:00 05/29/18 08:59 05/04/18 08:57 Folic Acid (Folate) 2 mg DAILY ORAL 05/03/18 09:00 05/30/18 08:59 05/04/18 09:01 Furosemide (Lasix) 20 mg EVERY 8 HOURS IV 05/04/18 10:45 06/03/18 10:44 05/04/18 11:04 Heparin Sodium (Porcine) (Heparin 5000 units/ml) 5,000 units EVERY 12 HOURS SUBQ 05/01/18 21:00 05/29/18 20:59 05/04/18 09:05 Hydrocortisone (Anusol HC) 1 applic DAILYPRN PRN RECTAL hemorrhoid 05/01/18 21:00 05/28/18 20:59 Lidocaine (Xylocaine) 1 applic DAILYPRN PRN TOPIC hemorroidal pain 05/02/18 13:00 05/29/18 12:59 Midodrine (Pro-Amatine) 5 mg THREE TIMES A DAY ORAL 05/04/18 13:00 05/30/18 17:59 Pantoprazole (Protonix) 40 mg EVERY 12 HOURS ORAL 05/02/18 21:00 06/01/18 20:59 05/04/18 09:01 Patient Own Medication (Patient's Own Med) 1 ea DAILY ORAL 05/02/18 09:00 05/29/18 08:59 05/04/18 10:31 Prednisone (predniSONE) 40 mg BID ORAL 05/02/18 09:00 05/29/18 17:59 05/04/18 09:01 Sodium Chloride 500 ml @ 30 mls/hr ONCE ONCE IV 05/04/18 11:30 05/05/18 04:09 05/04/18 11:15 Thiamine HCl (Vitamin B1) 100 mg DAILY ORAL 05/02/18 09:00 05/30/18 08:59 05/04/18 09:01 Trimethoprim/ Sulfamethoxazole 20 ml/Dextrose 570 ml @ 380 mls/hr Q8HR@0200,1000,1800 IV 05/02/18 10:00 05/09/18 09:59 05/04/18 09:07 Reginald Kiran MD May 04, 2018 14:47
[2018-05-04] MEDS: cefTRIAXone 1 GM in D5W 55 ML IVPB SCH (14:55)
[2018-05-04] MEDS: Azithromycin 250mg tab ORAL SCH (14:55)
[2018-05-04 16:00] VITALS: BP 114/71
--- NOTE | 2018-05-04 16:13 | Diagnostic Imaging Report ---
Indication: Cough Technique: One view of the chest Comparison: 04/28/2018 Findings: Bilateral interstitial and airspace disease appears slightly improved from the previous exam. The heart size is normal. The pleural spaces remain clear. Impression: Slight improvement of previously demonstrated bilateral interstitial and airspace disease, over 6 days
--- NOTE | 2018-05-04 16:27 | General Progress Note ---
Assessment/Plan Assessment/Plan Assessment and Recs: #. Lung mass eval -- has been seen by pulm and ID, 1. Bilateral pulmonary infiltrates, CAP versus PJP pneumonia versus other opportunistic infection or atypical infection. 2. Scattered GGO's and pulmonary nodules, likely infectious , possible underlying neoplastic process --> recommend abx as per ID, and pulm steriods --> HAART meds has been started --> can monitor for improvement resolution, recheck CT in 2 weeks on 05/13 --> biopsy of the lung can be ordered if no resolution --> needs outpatient followup and have discussed this with patient # Anemia of chronic diseas due to underlying chronic medical issues, multifactorial --> Anemia workup has been ordered/reviewed --> No evidence of hemolysis is noted, peripheral smear has been reviewed. --> Hgb goal >7. Transfuse prn. --> Epogen can be considered given haart meds started --> Medications have been reviewed #. AIDS (CD4 count 18), recently back on antiretroviral therapy --> as per ID team, management. #. Leukopenia due to hiv/aids--> if anc is less than 2000 consider neupogen --> neupogen if anc anc <2000 --> reverse isolation #. Pyuria. #. GERD The timing of this note does not necessarily reflect the time of the patient was seen. Greatly appreciate consultation! Subjective Constitutional: Denies: no symptoms, chills, diaphoresis, fever, malaise, weakness, other HEENT: Denies: no symptoms, eye pain, blurred vision, tearing, double vision, ear pain, ear discharge, nose pain, nose congestion, throat pain, throat swelling, mouth pain, mouth swelling, other Cardiovascular: Denies: no symptoms, chest pain, edema, irregular heart rate, lightheadedness, palpitations, syncope, other Respiratory: Denies: no symptoms, cough, orthopnea, shortness of breath, SOB with excertion, SOB at rest, sputum, stridor, wheezing, other Neurologic/Psychiatric: Denies: no symptoms, anxiety, depressed, emotional problems, headache, numbness, paresthesia, pre-existing deficit, seizure, tingling, tremors, weakness, other Endocrine: Denies: no symptoms, excessive sweating, flushing, intolerance to cold, intolerance to heat, increased hunger, increased thirst, increased urine, unexplained weight gain, unexplained weight loss, other Hematologic/Lymphatic: Denies: no symptoms, anemia, easy bleeding, easy bruising, other Allergies: Coded Allergies: No Known Allergies (Unverified , 04/28/18) Subjective 05/04: breathing is better, cxr reviewed and improved Objective Last 24 Hour Vital Signs Date Time Temp Pulse Resp B/P (MAP) Pulse Ox O2 Delivery O2 Flow Rate FiO2 05/04/18 12:00 87 05/04/18 12:00 97.6 87 20 115/65 (82) 95 05/04/18 09:00 Nasal Cannula 4.0 05/04/18 08:00 97.1 94 19 109/71 (84) 97 05/04/18 08:00 93 05/04/18 07:49 Nasal Cannula 3.0 32 05/04/18 07:49 97 Nasal Cannula 3.0 32 05/04/18 07:49 Nasal Cannula 3.0 32 05/04/18 07:49 Room Air 21 05/04/18 04:00 96 05/04/18 04:00 97.0 90 20 106/68 (81) 96 05/04/18 01:45 80 18 96 Nasal Cannula 3.0 32 05/04/18 01:33 88 18 95 Room Air 21 05/04/18 00:00 98.1 81 20 106/71 (83) 97 05/04/18 00:00 84 05/03/18 21:00 Nasal Cannula 3.0 05/03/18 20:38 94 Nasal Cannula 3.0 32 05/03/18 20:37 93 18 94 Nasal Cannula 3.0 32 05/03/18 20:26 Nasal Cannula 3.0 32 05/03/18 20:26 100 20 90 Room Air 21 05/03/18 20:00 97.0 84 20 120/77 (91) 98 05/03/18 20:00 84 Intake and Output 05/03/18 05/04/18 19:00 07:00 Intake Total 720 ml 60 ml Output Total 1000 ml Balance -280 ml 60 ml Intake Oral 720 ml 60 ml Output Urine Total 1000 ml # Bowel Movements 1 Laboratory Tests 05/03/18 20:50: Hepatitis A IgM Antibody [Pending], Hepatitis B Surface Antigen [Pending], Hepatitis B Core IgM Antibody [Pending], Hepatitis C Antibody [Pending] 05/04/18 04:45: Sodium Level 130L, Potassium Level 4.4, Chloride Level 95L, Carbon Dioxide Level 25, Anion Gap 10, Blood Urea Nitrogen 11, Creatinine 0.9, Estimat Glomerular Filtration Rate > 60, Glucose Level 96, Osmolality 274L, Uric Acid 1.7L, Calcium Level 9.1, Phosphorus Level 3.0, Magnesium Level 2.0, Total Bilirubin 0.1L, Aspartate Amino Transf (AST/SGOT) 38H, Alanine Aminotransferase (ALT/SGPT) 30, Alkaline Phosphatase 94, Total Protein 7.4, Albumin 2.4L, Globulin 5.0, Albumin/Globulin Ratio 0.5L Height (Feet): 5 Height (Inches): 6.00 Weight (Pounds): 130 Objective Gen: reviewed, normal General Appearance: no apparent distress, alert Head: normocephalic, atraumatic Eyes: bilateral eye normal inspection, bilateral eye PERRL ENT: hearing grossly normal, normal pharynx, no angioedema, normal voice Neck: full range of motion, supple/symm/no masses Respiratory: chest non-tender, lungs clear, normal breath sounds ++ tachypnea Cardiovascular: regular rate, rhythm, no edema Gastrointestinal: normal bowel sounds, non tender, soft, nd Musculoskeletal: back normal, gait/station normal, nt Neurologic: alert, oriented x3, responsive Psychiatric: judgement/insight normal, memory normal Skin: normal color, no rash, warm/dry Vinayak Cardona MD May 04, 2018 16:27
--- NOTE | 2018-05-04 19:40 | NUR ---
NURSE NOTES: Received pt. and report from SHELBY Motley. Observe pt. resting in bed with both eyes open, watching TV. protection agent is in placed, IV site asymptomatic and patent. Bed is in the lowest position and locked, call light within reach. No SOB/signs or symptoms of acute distress noted at this time. Will continue plan of care.
[2018-05-04 20:00] VITALS: BP 104/76
--- NOTE | 2018-05-04 20:26 | Pulmonology Progress Note ---
Assessment/Plan Problems: (1) Opportunistic infection (2) Lung nodule, multiple (3) Ground glass opacity present on imaging of lung (4) Pneumonia (5) AIDS Assessment/Plan ASSESSMENT: The patient is a 38-year-old male with a history of AIDS (CD4 count 18) presenting with respiratory illness with bilateral infiltrates, GGO's and scattered nodular opacities concerning for possible PJP pneumonia versus other typical or atypical infectious process of OI. empirically on Bactrim and steroids while awaiting LDH, ABG, PCP DFA. PROBLEM LIST: 1. Bilateral pulmonary infiltrates, CAP versus PJP pneumonia versus other opportunistic infection or atypical infection. 2. Scattered GGO's and pulmonary nodules, likely infectious, possible underlying neoplastic process 2. AIDS (CD4 count 18), recently back on antiretroviral therapy. 3. Leukopenia. 4. Anemia. 5. Pyuria. 6. GERD TREATMENT PLAN: 1. Optimize pulmonary hygiene/mobilize as tolerated. 2. Titrate down FiO2 to keep saturations greater than 90%. 3. Will schedule bronch if serologic w/u unrevealing 4. F/U serologies 5. Abx (CTx, Azithro, IV TMP-SMX) per ID, cART per ID 6. Continue Pred 40 BID 7. [id number] and p.r.n. bronchodilators. 8. Aspiration precautions. 9. Parenchymal nodules need to be followed to resolution or biopsied to R/O neoplastic process 10. DVT prophylaxis, heparin subcutaneous. 11. Monitor volumes and renal function: alb/lasix, fluid restriction and midodrine per renal Subjective Allergies: Coded Allergies: No Known Allergies (Unverified , 04/28/18) Subjective AFVSS on 3L feels better less SOB less cough no wheezing no F/C Per renal hypoNa 2/2 SIADH started on lasix after albumin today + on midodrine given low BP CXR better Objective Last 24 Hour Vital Signs Date Time Temp Pulse Resp B/P (MAP) Pulse Ox O2 Delivery O2 Flow Rate FiO2 05/04/18 19:34 Nasal Cannula 3.0 32 05/04/18 19:34 97 Nasal Cannula 3.0 32 05/04/18 16:00 85 05/04/18 16:00 97.5 83 22 114/71 (85) 97 05/04/18 12:00 87 05/04/18 12:00 97.6 87 20 115/65 (82) 95 05/04/18 09:00 Nasal Cannula 4.0 05/04/18 08:00 97.1 94 19 109/71 (84) 97 05/04/18 08:00 93 05/04/18 07:49 Nasal Cannula 3.0 32 05/04/18 07:49 97 Nasal Cannula 3.0 32 05/04/18 07:49 Nasal Cannula 3.0 32 05/04/18 07:49 Room Air 21 05/04/18 04:00 96 05/04/18 04:00 97.0 90 20 106/68 (81) 96 05/04/18 01:45 80 18 96 Nasal Cannula 3.0 32 05/04/18 01:33 88 18 95 Room Air 21 05/04/18 00:00 98.1 81 20 106/71 (83) 97 05/04/18 00:00 84 05/03/18 21:00 Nasal Cannula 3.0 05/03/18 20:38 94 Nasal Cannula 3.0 32 05/03/18 20:37 93 18 94 Nasal Cannula 3.0 32 05/03/18 20:26 Nasal Cannula 3.0 32 05/03/18 20:26 100 20 90 Room Air 21 Intake and Output 05/03/18 05/04/18 19:00 07:00 Intake Total 720 ml 60 ml Output Total 1000 ml Balance -280 ml 60 ml Intake Oral 720 ml 60 ml Output Urine Total 1000 ml # Bowel Movements 1 General Appearance: no acute distress, cachetic HEENT: normocephalic, atraumatic, anicteric, mucous membranes moist Respiratory/Chest: chest wall non-tender, lungs clear, normal breath sounds, no respiratory distress, no accessory muscle use Cardiovascular: normal peripheral pulses, normal rate, regular rhythm Abdomen: normal bowel sounds, soft, non tender, no organomegaly, non distended , no mass Extremities: no cyanosis, no clubbing, no edema Laboratory Tests 05/03/18 20:50: Hepatitis A IgM Antibody [Pending], Hepatitis B Surface Antigen [Pending], Hepatitis B Core IgM Antibody [Pending], Hepatitis C Antibody [Pending] 05/04/18 04:45: Sodium Level 130L, Potassium Level 4.4, Chloride Level 95L, Carbon Dioxide Level 25, Anion Gap 10, Blood Urea Nitrogen 11, Creatinine 0.9, Estimat Glomerular Filtration Rate > 60, Glucose Level 96, Osmolality 274L, Uric Acid 1.7L, Calcium Level 9.1, Phosphorus Level 3.0, Magnesium Level 2.0, Total Bilirubin 0.1L, Aspartate Amino Transf (AST/SGOT) 38H, Alanine Aminotransferase (ALT/SGPT) 30, Alkaline Phosphatase 94, Total Protein 7.4, Albumin 2.4L, Globulin 5.0, Albumin/Globulin Ratio 0.5L Current Medications Medications (Trade) Dose Ordered Sig/Garrick Route PRN Reason Start Time Stop Time Status Last Admin Dose Admin Acetaminophen (Tylenol) 500 mg Q4H PRN ORAL Mild Pain/Temp > 100.5 05/01/18 18:30 05/28/18 18:29 Azithromycin (Zithromax) 250 mg Q24H ORAL 05/02/18 14:00 05/06/18 13:59 05/04/18 14:55 Ceftriaxone Sodium 1 gm/ Dextrose 55 ml @ 110 mls/hr Q24H IVPB 05/02/18 14:00 05/06/18 13:59 05/04/18 14:55 Diazepam (Valium) 10 mg Q2H PRN ORAL For Anxiety 05/01/18 18:45 05/06/18 12:30 Docusate Sodium (Colace) 100 mg TWICE A DAY ORAL 05/02/18 09:00 05/29/18 08:59 05/04/18 19:00 Folic Acid (Folate) 2 mg DAILY ORAL 05/03/18 09:00 05/30/18 08:59 05/04/18 09:01 Furosemide (Lasix) 20 mg EVERY 8 HOURS IV 05/04/18 10:45 06/03/18 10:44 05/04/18 14:54 Heparin Sodium (Porcine) (Heparin 5000 units/ml) 5,000 units EVERY 12 HOURS SUBQ 05/01/18 21:00 05/29/18 20:59 05/04/18 09:05 Hydrocortisone (Anusol HC) 1 applic DAILYPRN PRN RECTAL hemorrhoid 05/01/18 21:00 05/28/18 20:59 Lidocaine (Xylocaine) 1 applic DAILYPRN PRN TOPIC hemorroidal pain 05/02/18 13:00 05/29/18 12:59 Midodrine (Pro-Amatine) 5 mg THREE TIMES A DAY ORAL 05/04/18 13:00 05/30/18 17:59 05/04/18 18:59 Pantoprazole (Protonix) 40 mg EVERY 12 HOURS ORAL 05/02/18 21:00 06/01/18 20:59 05/04/18 09:01 Patient Own Medication (Patient's Own Med) 1 ea DAILY ORAL 05/02/18 09:00 05/29/18 08:59 05/04/18 10:31 Prednisone (predniSONE) 40 mg BID ORAL 05/02/18 09:00 05/29/18 17:59 05/04/18 19:00 Sodium Chloride 500 ml @ 30 mls/hr ONCE ONCE IV 05/04/18 11:30 05/05/18 04:09 05/04/18 11:15 Thiamine HCl (Vitamin B1) 100 mg DAILY ORAL 05/02/18 09:00 05/30/18 08:59 05/04/18 09:01 Trimethoprim/ Sulfamethoxazole 20 ml/Dextrose 570 ml @ 380 mls/hr Q8HR@0200,1000,1800 IV 05/02/18 10:00 05/09/18 09:59 05/04/18 18:59 Hiren De La Paz MD May 04, 2018 20:26
--- NOTE | 2018-05-04 21:51 | General Progress Note ---
Assessment/Plan Problem List: (1) Dyspnea ICD Codes: R06.00 - Dyspnea, unspecified SNOMED: 899192885 (2) Pneumonia ICD Codes: J18.9 - Pneumonia, unspecified organism SNOMED: 534995748 (3) Pulmonary edema ICD Codes: J81.1 - Chronic pulmonary edema SNOMED: 82552359 (4) AIDS nephropathy ICD Codes: B20 - Human immunodeficiency virus [HIV] disease; N28.9 - Disorder of kidney and ureter, unspecified SNOMED: 06231594, 244495765 (5) AIDS ICD Codes: B20 - Human immunodeficiency virus [HIV] disease SNOMED: 61731178 (6) Hypoalbuminemia ICD Codes: E88.09 - Other disorders of plasma-protein metabolism, not elsewhere classified SNOMED: 354258689 (7) Ground glass opacity present on imaging of lung ICD Codes: R91.8 - Other nonspecific abnormal finding of lung field SNOMED: 622807633 Status: progressing Assessment/Plan hiv pna is improving afebrile not hypoxia aids cachexia Subjective ROS Limited/Unobtainable: Yes Allergies: Coded Allergies: No Known Allergies (Unverified , 04/28/18) Objective Last 24 Hour Vital Signs Date Time Temp Pulse Resp B/P (MAP) Pulse Ox O2 Delivery O2 Flow Rate FiO2 05/04/18 19:34 Nasal Cannula 3.0 32 05/04/18 19:34 97 Nasal Cannula 3.0 32 05/04/18 16:00 85 05/04/18 16:00 97.5 83 22 114/71 (85) 97 05/04/18 12:00 87 05/04/18 12:00 97.6 87 20 115/65 (82) 95 05/04/18 09:00 Nasal Cannula 4.0 05/04/18 08:00 97.1 94 19 109/71 (84) 97 05/04/18 08:00 93 05/04/18 07:49 Nasal Cannula 3.0 32 05/04/18 07:49 97 Nasal Cannula 3.0 32 05/04/18 07:49 Nasal Cannula 3.0 32 05/04/18 07:49 Room Air 21 05/04/18 04:00 96 05/04/18 04:00 97.0 90 20 106/68 (81) 96 05/04/18 01:45 80 18 96 Nasal Cannula 3.0 32 05/04/18 01:33 88 18 95 Room Air 21 05/04/18 00:00 98.1 81 20 106/71 (83) 97 05/04/18 00:00 84 Intake and Output 05/03/18 05/04/18 19:00 07:00 Intake Total 720 ml 60 ml Output Total 1000 ml Balance -280 ml 60 ml Intake Oral 720 ml 60 ml Output Urine Total 1000 ml # Bowel Movements 1 Laboratory Tests 05/04/18 04:45: Sodium Level 130L, Potassium Level 4.4, Chloride Level 95L, Carbon Dioxide Level 25, Anion Gap 10, Blood Urea Nitrogen 11, Creatinine 0.9, Estimat Glomerular Filtration Rate > 60, Glucose Level 96, Osmolality 274L, Uric Acid 1.7L, Calcium Level 9.1, Phosphorus Level 3.0, Magnesium Level 2.0, Total Bilirubin 0.1L, Aspartate Amino Transf (AST/SGOT) 38H, Alanine Aminotransferase (ALT/SGPT) 30, Alkaline Phosphatase 94, Total Protein 7.4, Albumin 2.4L, Globulin 5.0, Albumin/Globulin Ratio 0.5L Height (Feet): 5 Height (Inches): 6.00 Weight (Pounds): 130 Neck: supple Cardiovascular: normal rate Respiratory/Chest: lungs clear Abdomen: soft Andreia Roy MD May 04, 2018 21:51
--- NOTE | 2018-05-04 22:17 | General Progress Note ---
Assessment/Plan Problem List: (1) Depressive disorder ICD Codes: F32.9 - Major depressive disorder, single episode, unspecified SNOMED: 50643750 Assessment/Plan the pt has capacity to make decisions. cont current meds ativan prn Subjective Neurologic/Psychiatric: Reports: anxiety, depressed, emotional problems Allergies: Coded Allergies: No Known Allergies (Unverified , 04/28/18) Subjective the pt was tearful today Objective Last 24 Hour Vital Signs Date Time Temp Pulse Resp B/P (MAP) Pulse Ox O2 Delivery O2 Flow Rate FiO2 05/04/18 19:34 Nasal Cannula 3.0 32 05/04/18 19:34 97 Nasal Cannula 3.0 32 05/04/18 16:00 85 05/04/18 16:00 97.5 83 22 114/71 (85) 97 05/04/18 12:00 87 05/04/18 12:00 97.6 87 20 115/65 (82) 95 05/04/18 09:00 Nasal Cannula 4.0 05/04/18 08:00 97.1 94 19 109/71 (84) 97 05/04/18 08:00 93 05/04/18 07:49 Nasal Cannula 3.0 32 05/04/18 07:49 97 Nasal Cannula 3.0 32 05/04/18 07:49 Nasal Cannula 3.0 32 05/04/18 07:49 Room Air 21 05/04/18 04:00 96 05/04/18 04:00 97.0 90 20 106/68 (81) 96 05/04/18 01:45 80 18 96 Nasal Cannula 3.0 32 05/04/18 01:33 88 18 95 Room Air 21 05/04/18 00:00 98.1 81 20 106/71 (83) 97 05/04/18 00:00 84 Intake and Output 05/03/18 05/04/18 19:00 07:00 Intake Total 720 ml 60 ml Output Total 1000 ml Balance -280 ml 60 ml Intake Oral 720 ml 60 ml Output Urine Total 1000 ml # Bowel Movements 1 Laboratory Tests 05/04/18 04:45: Sodium Level 130L, Potassium Level 4.4, Chloride Level 95L, Carbon Dioxide Level 25, Anion Gap 10, Blood Urea Nitrogen 11, Creatinine 0.9, Estimat Glomerular Filtration Rate > 60, Glucose Level 96, Osmolality 274L, Uric Acid 1.7L, Calcium Level 9.1, Phosphorus Level 3.0, Magnesium Level 2.0, Total Bilirubin 0.1L, Aspartate Amino Transf (AST/SGOT) 38H, Alanine Aminotransferase (ALT/SGPT) 30, Alkaline Phosphatase 94, Total Protein 7.4, Albumin 2.4L, Globulin 5.0, Albumin/Globulin Ratio 0.5L Height (Feet): 5 Height (Inches): 6.00 Weight (Pounds): 130 General Appearance: alert, moderate distress, thin Neurologic: oriented x 3, responsive, depressed affect Elver Almaguer MD May 04, 2018 22:17
[2018-05-05] VITALS: BP 100/67
[2018-05-05] MEDS: Trimethoprim/Sulfamethoxazole 20 ML in D5W 500ml 550 ML IV SCH ×3 (01:39→17:50)
[2018-05-05 04:00] VITALS: BP 106/73
[2018-05-05 07:22] LABS: ALANINE AMINOTRANSFERASE 27 U/L (12-78); ALBUMIN 2.4 G/DL (3.4-5.0); ALBUMIN/GLOBULIN RATIO 0.5 (1.0-2.7); ALKALINE PHOSPHATASE 90 U/L (46-116); ANION GAP 8 mmol/L (5-15); ASPARTATE AMINO TRANSFERASE 27 U/L (15-37); BILIRUBIN,TOTAL 0.1 MG/DL (0.2-1.0); BLOOD UREA NITROGEN 19 mg/dL (7-18); CALCIUM 9.1 MG/DL (8.5-10.1); CARBON DIOXIDE 27 MMOL/L (21-32); CHLORIDE 96 MMOL/L (98-107); CREATININE 0.9 MG/DL (0.55-1.30); PHOSPHORUS 3.7 MG/DL (2.5-4.9); POTASSIUM 4.1 MMOL/L (3.5-5.1); SODIUM 131 MMOL/L (136-145)
--- NOTE | 2018-05-05 07:34 | NUR ---
CASE MANAGEMENT:REVIEW 05/05/18 SI: PNEUMONIA. WASTING SYNDROME MULTIPLE LING NODULES 97.4 77 17 106/73 98% ON 4L/NC NA-131 IS: IV ROCEPHIN Q24 IV BACTRIM Q8HRS AZITHROMYCIN PO Q24 MIDODRINE PO TID IV LASIX Q8HRS FOLATE PO QD PROTONIX PO Q12 PREDNISONE PO BID : NOW ON TELEMETRY UNIT
--- NOTE | 2018-05-05 07:54 | NUR ---
HAND-OFF: Report given to SHELBY Mendes.
[2018-05-05 08:00] VITALS: BP 114/77
--- NOTE | 2018-05-05 08:23 | NUR ---
NURSE NOTES: Pt in bed in low position, HOB in semi fowlers, pt has bathroom privileges, IV site patent and intact RT F 20, pt denies pain, Ox4 calm and cooperative, LAB reviewed Na is low at 131 Md aware, Pt SR and will recommend Medsurg, pt ambulates with steady gait, WBC also low at 2.4, reviewed medication list for this morning and pt stated he doesnt want Heparin, no s/s of distress or sob noted.
--- NOTE | 2018-05-05 10:27 | Infectious Diseases Prog Note ---
Assessment/Plan Assessment/Plan antibiotics : ceftriaxone, azithromycin, iv bactrim A 1. pneumonia r/o PCP, increased LDH 2. AIDS, cd4 18 3. seizures 4. asthma P 1. continue ceftriaxone, azithromycin 2. continue bactrim iv, steroids 3. will follow up cultures Subjective ROS Limited/Unobtainable: Yes Constitutional: Denies: fever, chills Respiratory: Reports: shortness of breath - decreasing, dry cough - decreasing Gastrointestinal/Abdominal: Denies: nausea, vomiting, diarrhea Musculoskeletal: Denies: pain Allergies: Coded Allergies: No Known Allergies (Unverified , 04/28/18) Objective Vital Signs Last 24 Hour Vital Signs Date Time Temp Pulse Resp B/P (MAP) Pulse Ox O2 Delivery O2 Flow Rate FiO2 05/05/18 09:31 Nasal Cannula 4.0 05/05/18 08:00 97.7 93 22 114/77 (89) 98 05/05/18 04:00 97.4 77 17 106/73 (84) 98 05/05/18 04:00 77 05/05/18 00:00 97.2 88 18 100/67 (78) 97 05/04/18 21:00 Nasal Cannula 4.0 05/04/18 20:00 88 05/04/18 20:00 97.4 82 19 104/76 (85) 95 05/04/18 19:34 Nasal Cannula 3.0 32 05/04/18 19:34 97 Nasal Cannula 3.0 32 05/04/18 16:00 85 05/04/18 16:00 97.5 83 22 114/71 (85) 97 05/04/18 12:00 87 05/04/18 12:00 97.6 87 20 115/65 (82) 95 Height (Feet): 5 Height (Inches): 6.00 Weight (Pounds): 130 Laboratory Tests Test 05/05/18 06:06 Sodium Level 131 MMOL/L (136-145) L Potassium Level 4.1 MMOL/L (3.5-5.1) Chloride Level 96 MMOL/L (98-107) L Carbon Dioxide Level 27 MMOL/L (21-32) Anion Gap 8 mmol/L (5-15) Blood Urea Nitrogen 19 mg/dL (7-18) H Creatinine 0.9 MG/DL (0.55-1.30) Estimat Glomerular Filtration Rate > 60 mL/min (>60) Glucose Level 87 MG/DL (74-106) Osmolality 276 mOsm/kg (297-317) L Uric Acid 2.6 MG/DL (2.6-7.2) Calcium Level 9.1 MG/DL (8.5-10.1) Phosphorus Level 3.7 MG/DL (2.5-4.9) Magnesium Level 2.0 MG/DL (1.8-2.4) Total Bilirubin 0.1 MG/DL (0.2-1.0) L Aspartate Amino Transf (AST/SGOT) 27 U/L (15-37) Alanine Aminotransferase (ALT/SGPT) 27 U/L (12-78) Alkaline Phosphatase 90 U/L (46-116) Total Protein 7.2 G/DL (6.4-8.2) Albumin 2.4 G/DL (3.4-5.0) L Globulin 4.8 g/dL Albumin/Globulin Ratio 0.5 (1.0-2.7) L Current Medications Medications (Trade) Dose Ordered Sig/Garrick Route PRN Reason Start Time Stop Time Status Last Admin Dose Admin Acetaminophen (Tylenol) 500 mg Q4H PRN ORAL Mild Pain/Temp > 100.5 05/01/18 18:30 05/28/18 18:29 Azithromycin (Zithromax) 250 mg Q24H ORAL 05/02/18 14:00 05/06/18 13:59 05/04/18 14:55 Ceftriaxone Sodium 1 gm/ Dextrose 55 ml @ 110 mls/hr Q24H IVPB 05/02/18 14:00 05/06/18 13:59 05/04/18 14:55 Diazepam (Valium) 10 mg Q2H PRN ORAL For Anxiety 05/01/18 18:45 05/06/18 12:30 Docusate Sodium (Colace) 100 mg TWICE A DAY ORAL 05/02/18 09:00 05/29/18 08:59 05/04/18 19:00 Folic Acid (Folate) 2 mg DAILY ORAL 05/03/18 09:00 05/30/18 08:59 05/04/18 09:01 Furosemide (Lasix) 20 mg EVERY 8 HOURS IV 05/04/18 10:45 06/03/18 10:44 05/05/18 06:10 Heparin Sodium (Porcine) (Heparin 5000 units/ml) 5,000 units EVERY 12 HOURS SUBQ 05/01/18 21:00 05/29/18 20:59 05/04/18 21:40 Hydrocortisone (Anusol HC) 1 applic DAILYPRN PRN RECTAL hemorrhoid 05/01/18 21:00 05/28/18 20:59 Lidocaine (Xylocaine) 1 applic DAILYPRN PRN TOPIC hemorroidal pain 05/02/18 13:00 05/29/18 12:59 Midodrine (Pro-Amatine) 5 mg THREE TIMES A DAY ORAL 05/04/18 13:00 05/30/18 17:59 05/04/18 18:59 Pantoprazole (Protonix) 40 mg EVERY 12 HOURS ORAL 05/02/18 21:00 06/01/18 20:59 05/04/18 21:36 Patient Own Medication (Patient's Own Med) 1 ea DAILY ORAL 05/02/18 09:00 05/29/18 08:59 05/04/18 10:31 Prednisone (predniSONE) 40 mg BID ORAL 05/02/18 09:00 05/29/18 17:59 05/04/18 19:00 Thiamine HCl (Vitamin B1) 100 mg DAILY ORAL 05/02/18 09:00 05/30/18 08:59 05/04/18 09:01 Trimethoprim/ Sulfamethoxazole 20 ml/Dextrose 570 ml @ 380 mls/hr Q8HR@0200,1000,1800 IV 05/02/18 10:00 05/09/18 09:59 05/05/18 01:39 Adrien Roth MD May 05, 2018 10:27
[2018-05-05] MEDS: Docusate 100mg cap ORAL SCH ×2 (10:31→17:49)
[2018-05-05] MEDS: Thiamine 100mg tab ORAL SCH (10:31)
[2018-05-05] MEDS: cefTRIAXone 1 GM in D5W 55 ML IVPB SCH (10:33)
[2018-05-05] MEDS: Heparin 5000 units/ml inj SUBQ SCH ×2 (10:36→21:00)
[2018-05-05 12:00] VITALS: BP 104/69
[2018-05-05] MEDS: Azithromycin 250mg tab ORAL SCH (13:12)
--- NOTE | 2018-05-05 15:39 | Pulmonology Progress Note ---
Assessment/Plan Problems: (1) Opportunistic infection (2) Lung nodule, multiple (3) Ground glass opacity present on imaging of lung (4) Pneumonia (5) AIDS Assessment/Plan ASSESSMENT: The patient is a 38-year-old male with a history of AIDS (CD4 count 18) presenting with respiratory illness with bilateral infiltrates, GGO's and scattered nodular opacities concerning for possible PJP pneumonia versus other typical or atypical infectious process of OI. empirically on Bactrim and steroids while awaiting LDH, ABG, PCP DFA. PROBLEM LIST: 1. Bilateral pulmonary infiltrates, CAP versus PJP pneumonia versus other opportunistic infection or atypical infection. 2. Scattered GGO's and pulmonary nodules, likely infectious, possible underlying neoplastic process 2. AIDS (CD4 count 18), recently back on antiretroviral therapy. 3. Leukopenia. 4. Anemia. 5. Pyuria. 6. GERD TREATMENT PLAN: 1. Optimize pulmonary hygiene/mobilize as tolerated. 2. Titrate down FiO2 to keep saturations greater than 90%. 3. Will schedule bronch if serologic w/u unrevealing 4. F/U serologies 5. Abx (CTx, Azithro, IV TMP-SMX) per ID, cART per ID 6. Decrease Pred to30 BID 7. Umnug-pax-txbww and p.r.n. bronchodilators. 8. Aspiration precautions. 9. Parenchymal nodules need to be followed to resolution or biopsied to R/O neoplastic process 10. DVT prophylaxis, heparin subcutaneous. 11. Monitor volumes and renal function: alb/lasix, fluid restriction and midodrine per renal Subjective Allergies: Coded Allergies: No Known Allergies (Unverified , 04/28/18) Subjective AFVSS on 4L feels better less SOB less cough no wheezing no F/C Objective Last 24 Hour Vital Signs Date Time Temp Pulse Resp B/P (MAP) Pulse Ox O2 Delivery O2 Flow Rate FiO2 05/05/18 12:00 97.0 90 21 104/69 (81) 100 05/05/18 11:55 89 05/05/18 09:31 Nasal Cannula 4.0 05/05/18 08:00 97.7 93 22 114/77 (89) 98 05/05/18 07:33 87 05/05/18 04:00 97.4 77 17 106/73 (84) 98 05/05/18 04:00 77 05/05/18 00:00 97.2 88 18 100/67 (78) 97 05/04/18 21:00 Nasal Cannula 4.0 05/04/18 20:00 88 05/04/18 20:00 97.4 82 19 104/76 (85) 95 05/04/18 19:34 Nasal Cannula 3.0 32 05/04/18 19:34 97 Nasal Cannula 3.0 32 05/04/18 16:00 85 05/04/18 16:00 97.5 83 22 114/71 (85) 97 Intake and Output 05/04/18 05/05/18 19:00 07:00 Intake Total 900 ml 320 ml Output Total 2150 ml 500 ml Balance -1250 ml -180 ml Intake Oral 900 ml 320 ml Output Urine Total 2150 ml 500 ml # Voids 2 # Bowel Movements 1 1 General Appearance: WD/WN, no acute distress HEENT: normocephalic, atraumatic, anicteric, mucous membranes moist Respiratory/Chest: chest wall non-tender, lungs clear, normal breath sounds, no respiratory distress, no accessory muscle use Cardiovascular: normal peripheral pulses, normal rate, regular rhythm Abdomen: normal bowel sounds, soft, non tender, no organomegaly, non distended , no mass Extremities: no cyanosis, no clubbing, no edema Laboratory Tests 05/05/18 06:06: Sodium Level 131L, Potassium Level 4.1, Chloride Level 96L, Carbon Dioxide Level 27, Anion Gap 8, Blood Urea Nitrogen 19H, Creatinine 0.9, Estimat Glomerular Filtration Rate > 60, Glucose Level 87, Osmolality 276L, Uric Acid 2.6, Calcium Level 9.1, Phosphorus Level 3.7, Magnesium Level 2.0, Total Bilirubin 0.1L, Aspartate Amino Transf (AST/SGOT) 27, Alanine Aminotransferase ( ALT/SGPT) 27, Alkaline Phosphatase 90, Total Protein 7.2, Albumin 2.4L, Globulin 4.8, Albumin/Globulin Ratio 0.5L Current Medications Medications (Trade) Dose Ordered Sig/Garrick Route PRN Reason Start Time Stop Time Status Last Admin Dose Admin Acetaminophen (Tylenol) 500 mg Q4H PRN ORAL Mild Pain/Temp > 100.5 05/01/18 18:30 05/28/18 18:29 Azithromycin (Zithromax) 250 mg Q24H ORAL 05/05/18 14:00 05/09/18 13:59 05/05/18 13:12 Ceftriaxone Sodium 1 gm/ Dextrose 55 ml @ 110 mls/hr Q24H IVPB 05/05/18 14:00 05/09/18 13:59 05/05/18 10:33 Diazepam (Valium) 10 mg Q2H PRN ORAL For Anxiety 05/01/18 18:45 05/06/18 12:30 Docusate Sodium (Colace) 100 mg TWICE A DAY ORAL 05/02/18 09:00 05/29/18 08:59 05/05/18 10:31 Folic Acid (Folate) 2 mg DAILY ORAL 05/03/18 09:00 05/30/18 08:59 05/05/18 10:32 Furosemide (Lasix) 20 mg EVERY 8 HOURS IV 05/04/18 10:45 06/03/18 10:44 05/05/18 13:13 Heparin Sodium (Porcine) (Heparin 5000 units/ml) 5,000 units EVERY 12 HOURS SUBQ 05/01/18 21:00 05/29/18 20:59 05/04/18 21:40 Hydrocortisone (Anusol HC) 1 applic DAILYPRN PRN RECTAL hemorrhoid 05/01/18 21:00 05/28/18 20:59 Lidocaine (Xylocaine) 1 applic DAILYPRN PRN TOPIC hemorroidal pain 05/02/18 13:00 05/29/18 12:59 Midodrine (Pro-Amatine) 5 mg THREE TIMES A DAY ORAL 05/04/18 13:00 05/30/18 17:59 05/05/18 13:13 Pantoprazole (Protonix) 40 mg EVERY 12 HOURS ORAL 05/02/18 21:00 06/01/18 20:59 05/05/18 10:32 Patient Own Medication (Patient's Own Med) 1 ea DAILY ORAL 05/02/18 09:00 05/29/18 08:59 05/05/18 10:31 Prednisone (predniSONE) 40 mg BID ORAL 05/02/18 09:00 05/29/18 17:59 05/05/18 10:31 Thiamine HCl (Vitamin B1) 100 mg DAILY ORAL 05/02/18 09:00 05/30/18 08:59 05/05/18 10:31 Trimethoprim/ Sulfamethoxazole 20 ml/Dextrose 570 ml @ 380 mls/hr Q8HR@0200,1000,1800 IV 05/02/18 10:00 05/09/18 09:59 05/05/18 10:55 Hiren De La Paz MD May 05, 2018 15:39
--- NOTE | 2018-05-05 15:56 | General Progress Note ---
Assessment/Plan Problem List: (1) Depressive disorder ICD Codes: F32.9 - Major depressive disorder, single episode, unspecified SNOMED: 48953922 Status: stable Assessment/Plan seroquel standing seroquel prn the pt lacks capacity Subjective Neurologic/Psychiatric: Reports: anxiety, depressed, emotional problems Allergies: Coded Allergies: No Known Allergies (Unverified , 04/28/18) Subjective the pt was calm and is withdrawn agrees to stay till medically cleared Objective Last 24 Hour Vital Signs Date Time Temp Pulse Resp B/P (MAP) Pulse Ox O2 Delivery O2 Flow Rate FiO2 05/05/18 12:00 97.0 90 21 104/69 (81) 100 05/05/18 11:55 89 05/05/18 09:31 Nasal Cannula 4.0 05/05/18 08:00 97.7 93 22 114/77 (89) 98 05/05/18 07:33 87 05/05/18 04:00 97.4 77 17 106/73 (84) 98 05/05/18 04:00 77 05/05/18 00:00 97.2 88 18 100/67 (78) 97 05/04/18 21:00 Nasal Cannula 4.0 05/04/18 20:00 88 05/04/18 20:00 97.4 82 19 104/76 (85) 95 05/04/18 19:34 Nasal Cannula 3.0 32 05/04/18 19:34 97 Nasal Cannula 3.0 32 05/04/18 16:00 85 05/04/18 16:00 97.5 83 22 114/71 (85) 97 Intake and Output 05/04/18 05/05/18 19:00 07:00 Intake Total 900 ml 320 ml Output Total 2150 ml 500 ml Balance -1250 ml -180 ml Intake Oral 900 ml 320 ml Output Urine Total 2150 ml 500 ml # Voids 2 # Bowel Movements 1 1 Laboratory Tests 05/05/18 06:06: Sodium Level 131L, Potassium Level 4.1, Chloride Level 96L, Carbon Dioxide Level 27, Anion Gap 8, Blood Urea Nitrogen 19H, Creatinine 0.9, Estimat Glomerular Filtration Rate > 60, Glucose Level 87, Osmolality 276L, Uric Acid 2.6, Calcium Level 9.1, Phosphorus Level 3.7, Magnesium Level 2.0, Total Bilirubin 0.1L, Aspartate Amino Transf (AST/SGOT) 27, Alanine Aminotransferase ( ALT/SGPT) 27, Alkaline Phosphatase 90, Total Protein 7.2, Albumin 2.4L, Globulin 4.8, Albumin/Globulin Ratio 0.5L Height (Feet): 5 Height (Inches): 6.00 Weight (Pounds): 130 General Appearance: WD/WN, no apparent distress, alert Neurologic: oriented x 3, responsive, depressed affect Elver Almaguer MD May 05, 2018 15:56
[2018-05-05 16:00] VITALS: BP 105/79
--- NOTE | 2018-05-05 16:12 | General Progress Note ---
Assessment/Plan Problem List: (1) Dyspnea ICD Codes: R06.00 - Dyspnea, unspecified SNOMED: 002352866 (2) Pneumonia ICD Codes: J18.9 - Pneumonia, unspecified organism SNOMED: 697532895 (3) Pulmonary edema ICD Codes: J81.1 - Chronic pulmonary edema SNOMED: 25853547 (4) AIDS nephropathy ICD Codes: B20 - Human immunodeficiency virus [HIV] disease; N28.9 - Disorder of kidney and ureter, unspecified SNOMED: 08760979, 329228312 (5) AIDS ICD Codes: B20 - Human immunodeficiency virus [HIV] disease SNOMED: 30468023 (6) Hypoalbuminemia ICD Codes: E88.09 - Other disorders of plasma-protein metabolism, not elsewhere classified SNOMED: 612676717 (7) Ground glass opacity present on imaging of lung ICD Codes: R91.8 - Other nonspecific abnormal finding of lung field SNOMED: 592111582 Status: progressing Assessment/Plan hiv pna is improving afebrile vitals stable Subjective ROS Limited/Unobtainable: Yes Constitutional: Reports: no symptoms Allergies: Coded Allergies: No Known Allergies (Unverified , 04/28/18) Objective Last 24 Hour Vital Signs Date Time Temp Pulse Resp B/P (MAP) Pulse Ox O2 Delivery O2 Flow Rate FiO2 05/05/18 12:00 97.0 90 21 104/69 (81) 100 05/05/18 11:55 89 05/05/18 09:31 Nasal Cannula 4.0 05/05/18 08:00 97.7 93 22 114/77 (89) 98 05/05/18 07:33 87 05/05/18 04:00 97.4 77 17 106/73 (84) 98 05/05/18 04:00 77 05/05/18 00:00 97.2 88 18 100/67 (78) 97 05/04/18 21:00 Nasal Cannula 4.0 05/04/18 20:00 88 05/04/18 20:00 97.4 82 19 104/76 (85) 95 05/04/18 19:34 Nasal Cannula 3.0 32 05/04/18 19:34 97 Nasal Cannula 3.0 32 Intake and Output 05/04/18 05/05/18 19:00 07:00 Intake Total 900 ml 320 ml Output Total 2150 ml 500 ml Balance -1250 ml -180 ml Intake Oral 900 ml 320 ml Output Urine Total 2150 ml 500 ml # Voids 2 # Bowel Movements 1 1 Laboratory Tests 05/05/18 06:06: Sodium Level 131L, Potassium Level 4.1, Chloride Level 96L, Carbon Dioxide Level 27, Anion Gap 8, Blood Urea Nitrogen 19H, Creatinine 0.9, Estimat Glomerular Filtration Rate > 60, Glucose Level 87, Osmolality 276L, Uric Acid 2.6, Calcium Level 9.1, Phosphorus Level 3.7, Magnesium Level 2.0, Total Bilirubin 0.1L, Aspartate Amino Transf (AST/SGOT) 27, Alanine Aminotransferase ( ALT/SGPT) 27, Alkaline Phosphatase 90, Total Protein 7.2, Albumin 2.4L, Globulin 4.8, Albumin/Globulin Ratio 0.5L Height (Feet): 5 Height (Inches): 6.00 Weight (Pounds): 130 EENT: PERRL/EOMI Cardiovascular: normal rate Respiratory/Chest: lungs clear Abdomen: soft Andreia Roy MD May 05, 2018 16:12
--- NOTE | 2018-05-05 16:31 | NUR ---
*-* INSURANCE *-* REVIEWS HAVE BEEN FAXED: [facility] NCM:[facility] P:[phone] P- [phone] [phone]...
--- NOTE | 2018-05-05 17:09 | Nephrology Progress Note ---
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 AIDs Nephropathy Sz Asthma HIV / AIDS Anemia Low Na Plan 24 H urine Protein being collected under ! gram Albumin followed by Lasix for low Na today Anemia cotter, low folate low bp start Midodrine U os and S os for eval of low Na per orders Subjective ROS Limited/Unobtainable: No Constitutional: Reports: malaise Objective Objective Last 24 Hour Vital Signs Date Time Temp Pulse Resp B/P (MAP) Pulse Ox O2 Delivery O2 Flow Rate FiO2 05/05/18 16:00 97.2 92 21 105/79 (88) 99 05/05/18 12:00 97.0 90 21 104/69 (81) 100 05/05/18 11:55 89 05/05/18 09:31 Nasal Cannula 4.0 05/05/18 08:00 97.7 93 22 114/77 (89) 98 05/05/18 07:33 87 05/05/18 04:00 97.4 77 17 106/73 (84) 98 05/05/18 04:00 77 05/05/18 00:00 97.2 88 18 100/67 (78) 97 05/04/18 21:00 Nasal Cannula 4.0 05/04/18 20:00 88 05/04/18 20:00 97.4 82 19 104/76 (85) 95 05/04/18 19:34 Nasal Cannula 3.0 32 05/04/18 19:34 97 Nasal Cannula 3.0 32 Intake and Output 05/04/18 05/05/18 19:00 07:00 Intake Total 900 ml 320 ml Output Total 2150 ml 500 ml Balance -1250 ml -180 ml Intake Oral 900 ml 320 ml Output Urine Total 2150 ml 500 ml # Voids 2 # Bowel Movements 1 1 Laboratory Tests 05/05/18 06:06: Sodium Level 131L, Potassium Level 4.1, Chloride Level 96L, Carbon Dioxide Level 27, Anion Gap 8, Blood Urea Nitrogen 19H, Creatinine 0.9, Estimat Glomerular Filtration Rate > 60, Glucose Level 87, Osmolality 276L, Uric Acid 2.6, Calcium Level 9.1, Phosphorus Level 3.7, Magnesium Level 2.0, Total Bilirubin 0.1L, Aspartate Amino Transf (AST/SGOT) 27, Alanine Aminotransferase ( ALT/SGPT) 27, Alkaline Phosphatase 90, Total Protein 7.2, Albumin 2.4L, Globulin 4.8, Albumin/Globulin Ratio 0.5L Height (Feet): 5 Height (Inches): 6.00 Weight (Pounds): 130 General Appearance: no apparent distress Objective no change Lukasz Eric MD May 05, 2018 17:09
[2018-05-05] MEDS ORDERED: NaCl 3% 500ml 250 ML IV ONE (17:30)
--- NOTE | 2018-05-05 18:58 | NUR ---
HAND-OFF: Report given to Susan Freeman.
--- NOTE | 2018-05-05 19:15 | NUR ---
NURSE NOTES: Received pt. and report from SHELBY Mendse. Observe pt. eating dinner in bed. residential monitor is in placed, IV site asymptomatic and patent. Bed is in the lowest position and locked, call light within reach. No SOB/signs or symptoms of acute distress noted at this time. Will continue plan of care.
--- NOTE | 2018-05-05 19:52 | General Progress Note ---
Assessment/Plan Assessment/Plan Assessment and Recs: #. Lung mass eval -- has been seen by pulm and ID, 1. Bilateral pulmonary infiltrates, CAP versus PJP pneumonia versus other opportunistic infection or atypical infection. 2. Scattered GGO's and pulmonary nodules, likely infectious , possible underlying neoplastic process --> recommend abx as per ID, and pulm steriods --> HAART meds has been started --> can monitor for improvement resolution, recheck CT in 2 weeks on 05/13 --> biopsy of the lung can be ordered if no resolution --> needs outpatient followup and have discussed this with patient # Anemia of chronic diseas due to underlying chronic medical issues, multifactorial --> Anemia workup has been ordered/reviewed --> No evidence of hemolysis is noted, peripheral smear has been reviewed. --> Hgb goal >7. Transfuse prn. --> Epogen can be considered given haart meds started --> Medications have been reviewed #. AIDS (CD4 count 18), recently back on antiretroviral therapy --> as per ID team, management. #. Leukopenia due to hiv/aids--> if anc is less than 2000 consider neupogen --> neupogen if anc anc <2000 --> reverse isolation #. Pyuria. #. GERD The timing of this note does not necessarily reflect the time of the patient was seen. Greatly appreciate consultation! Subjective Allergies: Coded Allergies: No Known Allergies (Unverified , 04/28/18) Subjective 05/04: breathing is better, cxr reviewed and improved 05/05: seen by bedside, awake, comfortable, no acute distress reported. Objective Last 24 Hour Vital Signs Date Time Temp Pulse Resp B/P (MAP) Pulse Ox O2 Delivery O2 Flow Rate FiO2 05/05/18 16:00 97.2 92 21 105/79 (88) 99 05/05/18 15:07 90 05/05/18 12:00 97.0 90 21 104/69 (81) 100 05/05/18 11:55 89 05/05/18 09:31 Nasal Cannula 4.0 05/05/18 08:00 97.7 93 22 114/77 (89) 98 05/05/18 07:33 87 05/05/18 04:00 97.4 77 17 106/73 (84) 98 3/19/19 04:00 77 05/05/18 00:00 97.2 88 18 100/67 (78) 97 05/04/18 21:00 Nasal Cannula 4.0 05/04/18 20:00 88 05/04/18 20:00 97.4 82 19 104/76 (85) 95 Intake and Output 05/04/18 05/05/18 19:00 07:00 Intake Total 900 ml 320 ml Output Total 2150 ml 500 ml Balance -1250 ml -180 ml Intake Oral 900 ml 320 ml Output Urine Total 2150 ml 500 ml # Voids 2 # Bowel Movements 1 1 Laboratory Tests 05/05/18 06:06: Sodium Level 131L, Potassium Level 4.1, Chloride Level 96L, Carbon Dioxide Level 27, Anion Gap 8, Blood Urea Nitrogen 19H, Creatinine 0.9, Estimat Glomerular Filtration Rate > 60, Glucose Level 87, Osmolality 276L, Uric Acid 2.6, Calcium Level 9.1, Phosphorus Level 3.7, Magnesium Level 2.0, Total Bilirubin 0.1L, Aspartate Amino Transf (AST/SGOT) 27, Alanine Aminotransferase ( ALT/SGPT) 27, Alkaline Phosphatase 90, Total Protein 7.2, Albumin 2.4L, Globulin 4.8, Albumin/Globulin Ratio 0.5L Height (Feet): 5 Height (Inches): 6.00 Weight (Pounds): 130 Objective Gen: reviewed, normal General Appearance: no apparent distress, alert Head: normocephalic, atraumatic Eyes: bilateral eye normal inspection, bilateral eye PERRL ENT: hearing grossly normal, normal pharynx, no angioedema, normal voice Neck: full range of motion, supple/symm/no masses Respiratory: chest non-tender, lungs clear, normal breath sounds ++ tachypnea Cardiovascular: regular rate, rhythm, no edema Gastrointestinal: normal bowel sounds, non tender, soft, nd Musculoskeletal: back normal, gait/station normal, nt Neurologic: alert, oriented x3, responsive Psychiatric: judgement/insight normal, memory normal Skin: normal color, no rash, warm/dry Vinayak Cardona MD May 05, 2018 19:52
[2018-05-05 20:00] VITALS: BP 98/75
[2018-05-06] VITALS: BP 100/60
[2018-05-06] MEDS: Trimethoprim/Sulfamethoxazole 20 ML in D5W 500ml 550 ML IV SCH ×3 (01:03→17:00)
[2018-05-06 04:00] VITALS: BP 102/71
--- NOTE | 2018-05-06 07:20 | NUR ---
NURSE NOTES: I received the patient awake and sitting at the side of his bed. Patient alert and oriented x4. Patient does not display any signs of distress or SOB. Bed in the lowest position and call light within reach.
--- NOTE | 2018-05-06 07:47 | NUR ---
HAND-OFF: Report given to SHELBY Schwarz.
[2018-05-06 08:00] VITALS: BP 123/90
[2018-05-06] MEDS: Thiamine 100mg tab ORAL SCH (08:56)
[2018-05-06] MEDS: Docusate 100mg cap ORAL SCH ×2 (08:57→18:42)
[2018-05-06] MEDS: Heparin 5000 units/ml inj SUBQ SCH ×2 (09:00→20:28)
--- NOTE | 2018-05-06 09:16 | Pulmonology Progress Note ---
Assessment/Plan Problems: (1) Opportunistic infection (2) Lung nodule, multiple (3) Ground glass opacity present on imaging of lung (4) Pneumonia (5) AIDS Assessment/Plan ASSESSMENT: The patient is a 38-year-old male with a history of AIDS (CD4 count 18) presenting with respiratory illness with bilateral infiltrates, GGO's and scattered nodular opacities concerning for possible PJP pneumonia versus other typical or atypical infectious process of OI. empirically on Bactrim and steroids while awaiting LDH, ABG, PCP DFA. PROBLEM LIST: 1. Bilateral pulmonary infiltrates, CAP versus PJP pneumonia versus other opportunistic infection or atypical infection. 2. Scattered GGO's and pulmonary nodules, likely infectious, possible underlying neoplastic process 2. AIDS (CD4 count 18), recently back on antiretroviral therapy. 3. Leukopenia. 4. Anemia. 5. Pyuria. 6. GERD TREATMENT PLAN: 1. Optimize pulmonary hygiene/mobilize as tolerated. 2. Titrate down FiO2 to keep saturations greater than 90%. - HOME O2 ORDERED 3. Will schedule bronch if serologic w/u unrevealing 4. F/U serologies: unclear why PJP DFA NOT BACK, I ASKED ID (Drs. Roth and Magno) to check with MICRO [facility]. If DFA negative I will need to bronch patient. 5. Abx (CTx, Azithro, IV TMP-SMX) per ID, cART per ID 6. Continue Pred 30 BID and taper 7. [id number] and p.r.n. bronchodilators. 8. Aspiration precautions. 9. Parenchymal nodules need to be followed to resolution or biopsied to R/O neoplastic process - REPEAT CT IN 2-4 WEEKS 10. DVT prophylaxis, heparin subcutaneous. 11. Monitor volumes and renal function: alb/lasix, fluid restriction and midodrine per renal 12. Patient is not stable for D/C. His PJP DFA is not back, if negative he will need FOB, also we need to set up O2 and coordinate OP care for him. He states he has a new PMD, HIV specialist but is unsure who that is. We need to ensure that he will have a follow up CT as well as pulmonary follow up post discharge. Subjective Allergies: Coded Allergies: No Known Allergies (Unverified , 04/28/18) Subjective AFVSS on 4L OOB states he is better No cough no wheezing no SOB no CP no FC DFA still not back! Objective Last 24 Hour Vital Signs Date Time Temp Pulse Resp B/P (MAP) Pulse Ox O2 Delivery O2 Flow Rate FiO2 05/06/18 08:00 97.3 106 21 123/90 (101) 96 05/06/18 04:00 97.5 86 17 102/71 (81) 98 05/06/18 04:00 74 05/06/18 00:00 71 05/06/18 00:00 97.6 84 18 100/60 (73) 99 05/05/18 21:00 Nasal Cannula 4.0 05/05/18 20:00 97.7 81 18 98/75 (83) 94 05/05/18 20:00 78 05/05/18 16:00 97.2 92 21 105/79 (88) 99 05/05/18 15:07 90 05/05/18 12:00 97.0 90 21 104/69 (81) 100 05/05/18 11:55 89 05/05/18 09:31 Nasal Cannula 4.0 Intake and Output 05/05/18 05/06/18 18:59 06:59 Intake Total 600 ml 300 ml Output Total 600 ml Balance 600 ml -300 ml Intake Oral 600 ml 300 ml Output Urine Total 600 ml # Voids 3 2 # Bowel Movements 1 General Appearance: WD/WN, no acute distress HEENT: normocephalic, atraumatic, anicteric, mucous membranes moist Respiratory/Chest: chest wall non-tender, lungs clear, normal breath sounds, no respiratory distress, no accessory muscle use Cardiovascular: normal peripheral pulses, normal rate, regular rhythm Abdomen: normal bowel sounds, soft, non tender, no organomegaly, non distended , no mass Extremities: no cyanosis, no clubbing, no edema Current Medications Medications (Trade) Dose Ordered Sig/Garrick Route PRN Reason Start Time Stop Time Status Last Admin Dose Admin Acetaminophen (Tylenol) 500 mg Q4H PRN ORAL Mild Pain/Temp > 100.5 05/01/18 18:30 05/28/18 18:29 Azithromycin (Zithromax) 250 mg Q24H ORAL 05/05/18 14:00 05/09/18 13:59 05/05/18 13:12 Ceftriaxone Sodium 1 gm/ Dextrose 55 ml @ 110 mls/hr Q24H IVPB 05/05/18 14:00 05/09/18 13:59 05/05/18 10:33 Diazepam (Valium) 10 mg Q2H PRN ORAL For Anxiety 05/01/18 18:45 05/06/18 12:30 Docusate Sodium (Colace) 100 mg TWICE A DAY ORAL 05/02/18 09:00 05/29/18 08:59 05/06/18 08:57 Folic Acid (Folate) 2 mg DAILY ORAL 05/03/18 09:00 05/30/18 08:59 05/06/18 08:56 Heparin Sodium (Porcine) (Heparin 5000 units/ml) 5,000 units EVERY 12 HOURS SUBQ 05/01/18 21:00 05/29/18 20:59 05/04/18 21:40 Hydrocortisone (Anusol HC) 1 applic DAILYPRN PRN RECTAL hemorrhoid 05/01/18 21:00 05/28/18 20:59 Lidocaine (Xylocaine) 1 applic DAILYPRN PRN TOPIC hemorroidal pain 05/02/18 13:00 05/29/18 12:59 Midodrine (Pro-Amatine) 5 mg THREE TIMES A DAY ORAL 05/04/18 13:00 05/30/18 17:59 05/05/18 17:49 Pantoprazole (Protonix) 40 mg EVERY 12 HOURS ORAL 05/02/18 21:00 06/01/18 20:59 05/06/18 08:56 Patient Own Medication (Patient's Own Med) 1 ea DAILY ORAL 05/02/18 09:00 05/29/18 08:59 05/05/18 10:31 Prednisone (predniSONE) 30 mg BID ORAL 05/05/18 18:00 05/29/18 17:59 05/06/18 08:57 Thiamine HCl (Vitamin B1) 100 mg DAILY ORAL 05/02/18 09:00 05/30/18 08:59 05/06/18 08:56 Trimethoprim/ Sulfamethoxazole 20 ml/Dextrose 570 ml @ 380 mls/hr Q8HR@0100,0900,1700 IV 05/06/18 01:00 05/09/18 00:59 05/06/18 01:03 Hiren De La Paz MD May 06, 2018 09:16
--- NOTE | 2018-05-06 10:53 | Nephrology Progress Note ---
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 AIDs Nephropathy Sz Asthma HIV / AIDS Anemia Low Na Plan 24 H urine Protein being collected under ! gram Albumin followed by Lasix for low Na today Anemia cotter, low folate low bp start Midodrine U os and S os for eval of low Na per orders Subjective ROS Limited/Unobtainable: No Constitutional: Reports: malaise Objective Objective Last 24 Hour Vital Signs Date Time Temp Pulse Resp B/P (MAP) Pulse Ox O2 Delivery O2 Flow Rate FiO2 05/06/18 09:00 Nasal Cannula 4.0 05/06/18 08:00 97.3 106 21 123/90 (101) 96 05/06/18 07:59 90 05/06/18 04:00 97.5 86 17 102/71 (81) 98 05/06/18 04:00 74 05/06/18 00:00 71 05/06/18 00:00 97.6 84 18 100/60 (73) 99 05/05/18 21:00 Nasal Cannula 4.0 05/05/18 20:00 97.7 81 18 98/75 (83) 94 05/05/18 20:00 78 05/05/18 16:00 97.2 92 21 105/79 (88) 99 05/05/18 15:07 90 05/05/18 12:00 97.0 90 21 104/69 (81) 100 05/05/18 11:55 89 Intake and Output 05/05/18 05/06/18 18:59 06:59 Intake Total 600 ml 300 ml Output Total 600 ml Balance 600 ml -300 ml Intake Oral 600 ml 300 ml Output Urine Total 600 ml # Voids 3 2 # Bowel Movements 1 Height (Feet): 5 Height (Inches): 6.00 Weight (Pounds): 122 General Appearance: no apparent distress Objective no change Lukasz Eric MD May 06, 2018 10:53
[2018-05-06] MEDS ORDERED: Bisacodyl EC 5mg tab ORAL PRN (11:15)
[2018-05-06] MEDS ORDERED: Milk of Magnesia 30ml Ud ORAL PRN (11:15)
--- NOTE | 2018-05-06 11:45 | Infectious Diseases Prog Note ---
Assessment/Plan Assessment/Plan A 1. pneumonia r/o PCP, increased LDH 2. AIDS, cd4 18 3. seizures 4. asthma 5. Lung mass & Nodules P 1. continue ceftriaxone, azithromycin 2. continue Bactrim iv, steroids 3. will follow up cultures & serologies 4. Continue ART with Genvoya Subjective ROS Limited/Unobtainable: No Constitutional: Reports: no symptoms Respiratory: Reports: shortness of breath, productive cough Gastrointestinal/Abdominal: Reports: no symptoms Neurologic: Reports: no symptoms Allergies: Coded Allergies: No Known Allergies (Unverified , 04/28/18) Objective Vital Signs Last 24 Hour Vital Signs Date Time Temp Pulse Resp B/P (MAP) Pulse Ox O2 Delivery O2 Flow Rate FiO2 05/06/18 09:00 Nasal Cannula 4.0 05/06/18 08:00 97.3 106 21 123/90 (101) 96 05/06/18 07:59 90 05/06/18 04:00 97.5 86 17 102/71 (81) 98 05/06/18 04:00 74 05/06/18 00:00 71 05/06/18 00:00 97.6 84 18 100/60 (73) 99 05/05/18 21:00 Nasal Cannula 4.0 05/05/18 20:00 97.7 81 18 98/75 (83) 94 05/05/18 20:00 78 05/05/18 16:00 97.2 92 21 105/79 (88) 99 05/05/18 15:07 90 05/05/18 12:00 97.0 90 21 104/69 (81) 100 05/05/18 11:55 89 Height (Feet): 5 Height (Inches): 6.00 Weight (Pounds): 122 General Appearance: cachetic HEENT: mucous membranes moist Respiratory/Chest: decreased breath sounds Cardiovascular: normal rate Abdomen: soft, non tender Extremities: no edema Neurologic/Psychiatric: alert, responsive Musculoskeletal: atrophy Current Medications Medications (Trade) Dose Ordered Sig/Garrick Route PRN Reason Start Time Stop Time Status Last Admin Dose Admin Acetaminophen (Tylenol) 500 mg Q4H PRN ORAL Mild Pain/Temp > 100.5 05/01/18 18:30 05/28/18 18:29 Azithromycin (Zithromax) 250 mg Q24H ORAL 05/05/18 14:00 05/09/18 13:59 05/05/18 13:12 Ceftriaxone Sodium 1 gm/ Dextrose 55 ml @ 110 mls/hr Q24H IVPB 05/05/18 14:00 05/09/18 13:59 05/05/18 10:33 Diazepam (Valium) 10 mg Q2H PRN ORAL For Anxiety 05/01/18 18:45 05/06/18 12:30 Docusate Sodium (Colace) 100 mg TWICE A DAY ORAL 05/06/18 18:00 06/05/18 17:59 Folic Acid (Folate) 2 mg DAILY ORAL 05/03/18 09:00 05/30/18 08:59 05/06/18 08:56 Heparin Sodium (Porcine) (Heparin 5000 units/ml) 5,000 units EVERY 12 HOURS SUBQ 05/01/18 21:00 05/29/18 20:59 05/04/18 21:40 Hydrocortisone (Anusol HC) 1 applic DAILYPRN PRN RECTAL hemorrhoid 05/01/18 21:00 05/28/18 20:59 Lidocaine (Xylocaine) 1 applic DAILYPRN PRN TOPIC hemorroidal pain 05/02/18 13:00 05/29/18 12:59 Midodrine (Pro-Amatine) 5 mg THREE TIMES A DAY ORAL 05/04/18 13:00 05/30/18 17:59 05/05/18 17:49 Pantoprazole (Protonix) 40 mg EVERY 12 HOURS ORAL 05/02/18 21:00 06/01/18 20:59 05/06/18 08:56 Patient Own Medication (Patient's Own Med) 1 ea DAILY ORAL 05/02/18 09:00 05/29/18 08:59 05/06/18 10:00 Prednisone (predniSONE) 30 mg BID ORAL 05/05/18 18:00 05/29/18 17:59 05/06/18 08:57 Thiamine HCl (Vitamin B1) 100 mg DAILY ORAL 05/02/18 09:00 05/30/18 08:59 05/06/18 08:56 Trimethoprim/ Sulfamethoxazole 20 ml/Dextrose 570 ml @ 380 mls/hr Q8HR@0100,0900,1700 IV 05/06/18 01:00 05/09/18 00:59 05/06/18 10:07 Reginald Kiran MD May 06, 2018 11:45
[2018-05-06 12:00] VITALS: BP 118/77
--- NOTE | 2018-05-06 12:01 | NUR ---
RD ASSESSMENT & RECOMMENDATIONS SEE CARE ACTIVITY FOR COMPLETE ASSESSMENT DAILY ESTIMATED NEEDS: Needs based on Recent wt loss, AIDS/ 55.5kg 30-35 kcals/kg 9620-3428 total kcals 1-1.5 g protein/kg 56-83 g total protein 25-30 mL/kg 7165-2625 total fluid mLs NUTRITION DIAGNOSIS: * Swallowing difficulty R/T respiratory status, dysphagia as evidenced by now of venturi mask, [employer] upgrade to Regular texture from prior puree w/ NTL/=. * Increased kcal/prot needs R/T catabolic dx, recent wt loss as evidenced by AIDS Dx, pt reports recent significant wt loss of 6-8lbs/ >5% wt loss in 1 week, currently @ 86% IBW. CURRENT DIET:REGULAR PO DIET RECOMMENDATIONS: Liberalized REGULAR/ texture per [employer]/ NEUTROPENIC ADDITIONAL RECOMMENDATIONS: * Standing wt as able for accurate CBW * Weekly wt monitoring given recent significant wt loss * Ensure Enlive BID in b/w meals (350kcal/ 20g prot per bottle) * Monitor PO intake closely REC NEUTROPENIC PRECAUTIONS SSI / ACCUCHECKS WHILE ON PREDNISONE
--- NOTE | 2018-05-06 12:48 | General Progress Note ---
Assessment/Plan Assessment/Plan Assessment and Recs: #. Lung mass eval -- has been seen by pulm and ID, 1. Bilateral pulmonary infiltrates, CAP versus PJP pneumonia versus other opportunistic infection or atypical infection. 2. Scattered GGO's and pulmonary nodules, likely infectious , possible underlying neoplastic process --> recommend abx as per ID, and pulm steriods --> HAART meds has been started --> can monitor for improvement resolution, recheck CT in 2 weeks on 05/13 --> biopsy of the lung can be ordered if no resolution --> needs outpatient followup and have discussed this with patient # Anemia of chronic diseas due to underlying chronic medical issues, multifactorial --> Anemia workup has been ordered/reviewed --> No evidence of hemolysis is noted, peripheral smear has been reviewed. --> Hgb goal >7. Transfuse prn. --> Epogen can be considered given haart meds started --> Medications have been reviewed #. AIDS (CD4 count 18), recently back on antiretroviral therapy --> as per ID team, management. #. Leukopenia due to hiv/aids--> if anc is less than 2000 consider neupogen --> neupogen if anc anc <2000 --> reverse isolation #. Pyuria. #. GERD The timing of this note does not necessarily reflect the time of the patient was seen. Greatly appreciate consultation! Subjective Allergies: Coded Allergies: No Known Allergies (Unverified , 04/28/18) Subjective 05/04: breathing is better, cxr reviewed and improved 05/05: seen by bedside, awake, comfortable, no acute distress reported. 05/06: Pt is awake, comfortable, no events reported. Objective Last 24 Hour Vital Signs Date Time Temp Pulse Resp B/P (MAP) Pulse Ox O2 Delivery O2 Flow Rate FiO2 05/06/18 09:00 Nasal Cannula 4.0 05/06/18 08:00 97.3 106 21 123/90 (101) 96 05/06/18 07:59 90 05/06/18 04:00 97.5 86 17 102/71 (81) 98 05/06/18 04:00 74 05/06/18 00:00 71 05/06/18 00:00 97.6 84 18 100/60 (73) 99 05/05/18 21:00 Nasal Cannula 4.0 05/05/18 20:00 97.7 81 18 98/75 (83) 94 05/05/18 20:00 78 05/05/18 16:00 97.2 92 21 105/79 (88) 99 05/05/18 15:07 90 Intake and Output 05/05/18 05/06/18 18:59 06:59 Intake Total 600 ml 300 ml Output Total 600 ml Balance 600 ml -300 ml Intake Oral 600 ml 300 ml Output Urine Total 600 ml # Voids 3 2 # Bowel Movements 1 Height (Feet): 5 Height (Inches): 6.00 Weight (Pounds): 122 Objective Gen: reviewed, normal General Appearance: no apparent distress, alert Head: normocephalic, atraumatic Eyes: bilateral eye normal inspection, bilateral eye PERRL ENT: hearing grossly normal, normal pharynx, no angioedema, normal voice Neck: full range of motion, supple/symm/no masses Respiratory: chest non-tender, lungs clear, normal breath sounds ++ tachypnea Cardiovascular: regular rate, rhythm, no edema Gastrointestinal: normal bowel sounds, non tender, soft, nd Musculoskeletal: back normal, gait/station normal, nt Neurologic: alert, oriented x3, responsive Psychiatric: judgement/insight normal, memory normal Skin: normal color, no rash, warm/dry Vinayak Cardona MD May 06, 2018 12:48
[2018-05-06] MEDS: cefTRIAXone 1 GM in D5W 55 ML IVPB SCH (14:32)
[2018-05-06] MEDS: Azithromycin 250mg tab ORAL SCH (14:32)
[2018-05-06] MEDS ORDERED: NaCl 3% 500ml 250 ML IV ONE (15:00)
--- NOTE | 2018-05-06 15:35 | NUR ---
ST NOTE: ST WEEKLY: PT PARTIALLY MET PO INTAKE GOALS. NURSING STAFF MET ASPIRATION PRECAUTION GOALS. PT IS PROGRESSING. CONTINUE SKILLED ST SERVICE FOR QD: [id number].
[2018-05-06 16:00] VITALS: BP 105/72
[2018-05-06] MEDS ORDERED: Docusate 100mg cap ORAL SCH (18:00)
--- NOTE | 2018-05-06 19:37 | NUR ---
HAND-OFF: Report given to Daniel Leahy RN.
--- NOTE | 2018-05-06 19:45 | NUR ---
NURSE NOTES: Received report from SHELBY Schwarz. Patient is awake lying semi-valdes's watching TV; resting comfortably. No signs of acute distress noted; denies pain at this time. AOx4; able to make needs known. Checked IV site, lines, and IV rate; patent and running. No erythema, bleeding, or infiltration noted. Bed at lowest position, brakes on, siderails up x2. Siderails padded following seizure precautions. Call light within reach. Will continue to monitor.
[2018-05-06 20:00] VITALS: BP 99/77
--- NOTE | 2018-05-06 21:05 | General Progress Note ---
Assessment/Plan Problem List: (1) Dyspnea ICD Codes: R06.00 - Dyspnea, unspecified SNOMED: 251822334 (2) Pneumonia ICD Codes: J18.9 - Pneumonia, unspecified organism SNOMED: 072046686 (3) Pulmonary edema ICD Codes: J81.1 - Chronic pulmonary edema SNOMED: 38057476 (4) AIDS nephropathy ICD Codes: B20 - Human immunodeficiency virus [HIV] disease; N28.9 - Disorder of kidney and ureter, unspecified SNOMED: 02477433, 191277071 (5) AIDS ICD Codes: B20 - Human immunodeficiency virus [HIV] disease SNOMED: 96679752 (6) Hypoalbuminemia ICD Codes: E88.09 - Other disorders of plasma-protein metabolism, not elsewhere classified SNOMED: 505153041 (7) Ground glass opacity present on imaging of lung ICD Codes: R91.8 - Other nonspecific abnormal finding of lung field SNOMED: 931040812 Assessment/Plan hiv pna is improving afebrile vitals stable aids cachexia home oxygen if needed per pulmonary Subjective ROS Limited/Unobtainable: Yes Allergies: Coded Allergies: No Known Allergies (Unverified , 04/28/18) Objective Last 24 Hour Vital Signs Date Time Temp Pulse Resp B/P (MAP) Pulse Ox O2 Delivery O2 Flow Rate FiO2 05/06/18 16:00 98.0 90 23 105/72 (83) 97 05/06/18 16:00 90 05/06/18 12:00 97.6 96 21 118/77 (91) 98 05/06/18 11:39 101 05/06/18 09:54 Nasal Cannula 3.0 32 05/06/18 09:53 95 Nasal Cannula 3.0 32 05/06/18 09:00 Nasal Cannula 4.0 05/06/18 08:00 97.3 106 21 123/90 (101) 96 05/06/18 07:59 90 05/06/18 04:00 97.5 86 17 102/71 (81) 98 05/06/18 04:00 74 05/06/18 00:00 71 05/06/18 00:00 97.6 84 18 100/60 (73) 99 Intake and Output 05/05/18 05/06/18 19:00 07:00 Intake Total 600 ml 300 ml Output Total 600 ml Balance 600 ml -300 ml Intake Oral 600 ml 300 ml Output Urine Total 600 ml # Voids 3 2 # Bowel Movements 1 Height (Feet): 5 Height (Inches): 6.00 Weight (Pounds): 122 General Appearance: confused Neck: supple Cardiovascular: normal rate Respiratory/Chest: lungs clear Andreia Roy MD May 06, 2018 21:05
--- NOTE | 2018-05-06 23:44 | General Progress Note ---
Assessment/Plan Problem List: (1) Depressive disorder ICD Codes: F32.9 - Major depressive disorder, single episode, unspecified SNOMED: 26367598 Assessment/Plan seroquel standing seroquel prn the pt lacks capacity Subjective Neurologic/Psychiatric: Reports: anxiety, depressed, emotional problems Allergies: Coded Allergies: No Known Allergies (Unverified , 04/28/18) Subjective the pt was calm and is withdrawn agrees to stay till medically cleared Objective Last 24 Hour Vital Signs Date Time Temp Pulse Resp B/P (MAP) Pulse Ox O2 Delivery O2 Flow Rate FiO2 05/06/18 21:00 Nasal Cannula 2.0 05/06/18 20:00 84 05/06/18 20:00 98.4 87 18 99/77 (84) 97 05/06/18 16:00 98.0 90 23 105/72 (83) 97 05/06/18 16:00 90 05/06/18 12:00 97.6 96 21 118/77 (91) 98 05/06/18 11:39 101 05/06/18 09:54 Nasal Cannula 3.0 32 05/06/18 09:53 95 Nasal Cannula 3.0 32 05/06/18 09:00 Nasal Cannula 4.0 05/06/18 08:00 97.3 106 21 123/90 (101) 96 05/06/18 07:59 90 05/06/18 04:00 97.5 86 17 102/71 (81) 98 05/06/18 04:00 74 05/06/18 00:00 71 05/06/18 00:00 97.6 84 18 100/60 (73) 99 Intake and Output 05/05/18 05/06/18 19:00 07:00 Intake Total 600 ml 300 ml Output Total 600 ml Balance 600 ml -300 ml Intake Oral 600 ml 300 ml Output Urine Total 600 ml # Voids 3 2 # Bowel Movements 1 Height (Feet): 5 Height (Inches): 6.00 Weight (Pounds): 122 Elver Almaguer MD May 06, 2018 23:44
[2018-05-07] VITALS (8 sets, daily range): BP systolic 99–129; BP diastolic 65–89
[2018-05-07] MEDS: Trimethoprim/Sulfamethoxazole 20 ML in D5W 500ml 550 ML IV SCH ×2 (01:34→09:21)
--- NOTE | 2018-05-07 04:50 | NUR ---
NURSE NOTES: Patient is asleep lying semi-valdes's; resting comfortably. No signs of acute distress or pain noted at this time.
--- NOTE | 2018-05-07 07:10 | NUR ---
NURSE NOTES: I received the patient awake, alert and out-of-bed. Patient did not display any signs of distress or SOB. Bed in the lowest position. I will continue to monitor the patient and implement care.
--- NOTE | 2018-05-07 07:19 | NUR ---
HAND-OFF: Report given to SHELBY Schwarz. Patient is in the restroom doing his morning routine. In stable condition.
[2018-05-07] MEDS: Heparin 5000 units/ml inj SUBQ SCH ×2 (09:00→21:01)
[2018-05-07] MEDS: Thiamine 100mg tab ORAL SCH (09:22)
[2018-05-07] MEDS: Docusate 100mg cap ORAL SCH ×2 (09:23→17:06)
--- NOTE | 2018-05-07 10:45 | NUR ---
CASE MANAGEMENT:REVIEW 05/06/18 SI: PNEUMONIA. WASTING SYNDROME MULTIPLE LUNG NODULES 97.3 106 21 123/90 96% ON 4L/NC IS: IV ROCEPHIN Q24 IV BACTRIM Q8HRS AZITHROMYCIN PO Q24 MIDODRINE PO TID IV LASIX Q8HRS FOLATE PO QD PROTONIX PO Q12 PREDNISONE PO BID : TELEMETRY UNIT 05/07/18 SI: PNEUMONIA. WASTING SYNDROME MULTIPLE LUNG NODULES 97.2 108 22 129/89 98% ON 2L/NC IS: IV BACTRIM Q8HRS IV ROCEPHIN Q24 AZITHROMYCIN PO Q24 PREDNISONE PO BID MIDODRINE PO TID PROTONIX PO Q12 HEPARIN SQ Q12 : TELEMETRY STATUS
--- NOTE | 2018-05-07 12:06 | Pulmonology Progress Note ---
Assessment/Plan Problems: (1) Opportunistic infection (2) Lung nodule, multiple (3) Ground glass opacity present on imaging of lung (4) Pneumonia (5) AIDS (6) Urine positive for cytomegalovirus (CMV) by PCR Assessment/Plan ASSESSMENT: The patient is a 38-year-old male with a history of AIDS (CD4 count 18) presenting with respiratory illness with bilateral infiltrates, GGO's and scattered nodular opacities concerning for possible PJP pneumonia versus other typical or atypical infectious process of OI. empirically on Bactrim and steroids while awaiting LDH, ABG, PCP DFA. PROBLEM LIST: 1. Bilateral pulmonary infiltrates, CAP versus PJP pneumonia versus other opportunistic infection or atypical infection. 2. Scattered GGO's and pulmonary nodules, likely infectious, possible underlying neoplastic process 2. AIDS (CD4 count 18), recently back on antiretroviral therapy. 3. Leukopenia. 4. Anemia. 5. Pyuria. 6. GERD 7. CMV PCR + TREATMENT PLAN: 1. Optimize pulmonary hygiene/mobilize as tolerated. 2. RA saturation adequate with ambulation, home O2 not needed 3. Will schedule bronch if serologic w/u unrevealing 4. F/U serologies: unclear why PJP DFA NOT BACK, Per ID will be back tomorrow. Defer management of CMV to ID 5. Abx (CTx, Azithro, IV TMP-SMX) per ID, cART per ID 6. Continue Pred 30 BID and taper - taper written 7. [id number] and p.r.n. bronchodilators. 8. Aspiration precautions. 9. Parenchymal nodules need to be followed to resolution or biopsied to R/O neoplastic process - REPEAT CT IN 2-4 WEEKS 10. DVT prophylaxis, heparin subcutaneous. 11. Monitor volumes and renal function: alb/lasix, fluid restriction and midodrine per renal 12. Dr. Nehemiah Montemayor, patient HIV MD/PCP, was called x [phone] - discussed with his catering assistant Re: the need for F/U CT, PULM and ID follow up. I am awaiting his call back, my cell phone provided. 13. CM consult placed - ADEQUATE FOLLOW UP NEEDS TO BE ENSURED PRIOR TO DISCHARGE WELL. I WILL ORDER A REPEAT CT TENTATIVELY @ [facility] AND THE PATIENT CAN FOLLOW UP WITH ME WELL IN 2 WEEKS (after the CT) Subjective Allergies: Coded Allergies: No Known Allergies (Unverified , 3/12/19) Subjective AFVSS on RA ---> ambulatory SaO2 > 95% No cough no wheezing no SOB no CP no FC DFA still not back - per ID will be resulted tomorrow Objective Last 24 Hour Vital Signs Date Time Temp Pulse Resp B/P (MAP) Pulse Ox O2 Delivery O2 Flow Rate FiO2 05/07/18 08:08 Nasal Cannula 2.0 05/07/18 08:00 97.2 96 22 129/89 (102) 98 05/07/18 07:36 108 05/07/18 04:00 73 05/07/18 04:00 97.0 94 18 99/65 (76) 98 05/07/18 00:00 98.6 86 19 107/72 (84) 98 05/07/18 00:00 70 05/06/18 21:00 Nasal Cannula 2.0 05/06/18 20:00 84 05/06/18 20:00 98.4 87 18 99/77 (84) 97 05/06/18 16:00 98.0 90 23 105/72 (83) 97 05/06/18 16:00 90 05/06/18 12:00 97.6 96 21 118/77 (91) 98 Intake and Output 05/06/18 05/07/18 19:00 07:00 Intake Total 90 ml 840 ml Balance 90 ml 840 ml Intake Oral 120 ml IV Total 90 ml 720 ml # Voids 2 # Bowel Movements 1 General Appearance: WD/WN, no acute distress HEENT: normocephalic, atraumatic, anicteric, mucous membranes moist Respiratory/Chest: chest wall non-tender, lungs clear, normal breath sounds, no respiratory distress, no accessory muscle use Cardiovascular: normal peripheral pulses, normal rate, regular rhythm Abdomen: normal bowel sounds, soft, non tender, no organomegaly, non distended , no mass Extremities: no cyanosis, no clubbing, no edema Current Medications Medications (Trade) Dose Ordered Sig/Garrick Route PRN Reason Start Time Stop Time Status Last Admin Dose Admin Acetaminophen (Tylenol) 500 mg Q4H PRN ORAL Mild Pain/Temp > 100.5 05/01/18 18:30 05/28/18 18:29 Azithromycin (Zithromax) 250 mg Q24H ORAL 05/05/18 14:00 05/09/18 13:59 05/06/18 14:32 Ceftriaxone Sodium 1 gm/ Dextrose 55 ml @ 110 mls/hr Q24H IVPB 05/05/18 14:00 05/09/18 13:59 05/06/18 14:32 Docusate Sodium (Colace) 100 mg TWICE A DAY ORAL 05/06/18 18:00 06/05/18 17:59 05/07/18 09:23 Folic Acid (Folate) 2 mg DAILY ORAL 05/03/18 09:00 05/30/18 08:59 05/07/18 09:22 Heparin Sodium (Porcine) (Heparin 5000 units/ml) 5,000 units EVERY 12 HOURS SUBQ 05/01/18 21:00 05/29/18 20:59 05/04/18 21:40 Hydrocortisone (Anusol HC) 1 applic DAILYPRN PRN RECTAL hemorrhoid 05/01/18 21:00 05/28/18 20:59 Lidocaine (Xylocaine) 1 applic DAILYPRN PRN TOPIC hemorroidal pain 05/02/18 13:00 05/29/18 12:59 05/06/18 14:32 Midodrine (Pro-Amatine) 5 mg THREE TIMES A DAY ORAL 05/04/18 13:00 05/30/18 17:59 05/07/18 09:23 Pantoprazole (Protonix) 40 mg EVERY 12 HOURS ORAL 05/02/18 21:00 06/01/18 20:59 05/07/18 09:21 Patient Own Medication (Patient's Own Med) 1 ea DAILY ORAL 05/02/18 09:00 05/29/18 08:59 05/07/18 09:21 Prednisone (predniSONE) 30 mg BID ORAL 05/05/18 18:00 05/29/18 17:59 05/07/18 09:22 Thiamine HCl (Vitamin B1) 100 mg DAILY ORAL 05/02/18 09:00 05/30/18 08:59 05/07/18 09:22 Trimethoprim/ Sulfamethoxazole 20 ml/Dextrose 570 ml @ 380 mls/hr Q8HR@0100,0900,1700 IV 05/06/18 01:00 05/09/18 00:59 05/07/18 09:21 Hiren De La Paz MD May 07, 2018 12:06
--- NOTE | 2018-05-07 13:36 | Infectious Diseases Prog Note ---
Assessment/Plan Assessment/Plan A 1. pneumonia r/o PCP, increased LDH 2. AIDS, cd4 18 3. seizures 4. asthma 5. Lung mass & Nodules 6. CMV viremia P 1. Discontinue ceftriaxone, azithromycin 2. change IV Bactrim to PO, steroids 3. start on Valganciclovir 4. Continue ART with Genvoya Subjective ROS Limited/Unobtainable: No HEENT: Reports: no symptoms Respiratory: Reports: shortness of breath, dry cough Gastrointestinal/Abdominal: Reports: diarrhea, other - mild Genitourinary: Reports: no symptoms Allergies: Coded Allergies: No Known Allergies (Unverified , 04/28/18) Objective Vital Signs Last 24 Hour Vital Signs Date Time Temp Pulse Resp B/P (MAP) Pulse Ox O2 Delivery O2 Flow Rate FiO2 05/07/18 12:00 97.7 94 22 116/76 (89) 95 05/07/18 08:08 Nasal Cannula 2.0 05/07/18 08:00 97.2 96 22 129/89 (102) 98 05/07/18 07:36 108 05/07/18 04:00 73 05/07/18 04:00 97.0 94 18 99/65 (76) 98 05/07/18 00:00 98.6 86 19 107/72 (84) 98 05/07/18 00:00 70 05/06/18 21:00 Nasal Cannula 2.0 05/06/18 20:00 84 05/06/18 20:00 98.4 87 18 99/77 (84) 97 05/06/18 16:00 98.0 90 23 105/72 (83) 97 05/06/18 16:00 90 Height (Feet): 5 Height (Inches): 6.00 Weight (Pounds): 122 General Appearance: no acute distress, cachetic HEENT: mucous membranes moist Respiratory/Chest: lungs clear Cardiovascular: normal rate Abdomen: soft, non tender Extremities: no edema Neurologic/Psychiatric: alert, oriented x 3, responsive Current Medications Medications (Trade) Dose Ordered Sig/Garrick Route PRN Reason Start Time Stop Time Status Last Admin Dose Admin Acetaminophen (Tylenol) 500 mg Q4H PRN ORAL Mild Pain/Temp > 100.5 05/01/18 18:30 05/28/18 18:29 Azithromycin (Zithromax) 250 mg Q24H ORAL 05/05/18 14:00 05/09/18 13:59 05/06/18 14:32 Ceftriaxone Sodium 1 gm/ Dextrose 55 ml @ 110 mls/hr Q24H IVPB 05/05/18 14:00 05/09/18 13:59 05/06/18 14:32 Docusate Sodium (Colace) 100 mg TWICE A DAY ORAL 05/06/18 18:00 06/05/18 17:59 05/07/18 09:23 Folic Acid (Folate) 2 mg DAILY ORAL 05/03/18 09:00 05/30/18 08:59 05/07/18 09:22 Heparin Sodium (Porcine) (Heparin 5000 units/ml) 5,000 units EVERY 12 HOURS SUBQ 05/01/18 21:00 05/29/18 20:59 05/04/18 21:40 Hydrocortisone (Anusol HC) 1 applic DAILYPRN PRN RECTAL hemorrhoid 05/01/18 21:00 05/28/18 20:59 Lidocaine (Xylocaine) 1 applic DAILYPRN PRN TOPIC hemorroidal pain 05/02/18 13:00 05/29/18 12:59 05/06/18 14:32 Midodrine (Pro-Amatine) 5 mg THREE TIMES A DAY ORAL 05/04/18 13:00 05/30/18 17:59 05/07/18 09:23 Pantoprazole (Protonix) 40 mg EVERY 12 HOURS ORAL 05/02/18 21:00 06/01/18 20:59 05/07/18 09:21 Patient Own Medication (Patient's Own Med) 1 ea DAILY ORAL 05/02/18 09:00 05/29/18 08:59 05/07/18 09:21 Prednisone (predniSONE) 30 mg BID ORAL 05/05/18 18:00 05/29/18 17:59 05/07/18 09:22 Thiamine HCl (Vitamin B1) 100 mg DAILY ORAL 05/02/18 09:00 05/30/18 08:59 05/07/18 09:22 Trimethoprim/ Sulfamethoxazole 20 ml/Dextrose 570 ml @ 380 mls/hr Q8HR@0100,0900,1700 IV 05/06/18 01:00 05/09/18 00:59 05/07/18 09:21 Reginald Kiran MD May 07, 2018 13:36
[2018-05-07] MEDS ORDERED: Bactrim-DS 1 tab ORAL SCH (14:00)
--- NOTE | 2018-05-07 14:50 | Nephrology Progress Note ---
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 AIDs Nephropathy Sz Asthma HIV / AIDS Anemia Low Na Plan no labs today 24 H urine Protein being collected under ! gram Albumin followed by Lasix for low Na as needed Anemia cotter, low folate low bp start Midodrine U os and S os for eval of low Na Ok to DC- If in house check labs in am per orders Subjective ROS Limited/Unobtainable: No Constitutional: Reports: malaise Objective Objective Last 24 Hour Vital Signs Date Time Temp Pulse Resp B/P (MAP) Pulse Ox O2 Delivery O2 Flow Rate FiO2 05/07/18 12:00 97.7 94 22 116/76 (89) 95 05/07/18 11:52 80 05/07/18 08:08 Nasal Cannula 2.0 05/07/18 08:00 97.2 96 22 129/89 (102) 98 05/07/18 07:36 108 05/07/18 04:00 73 05/07/18 04:00 97.0 94 18 99/65 (76) 98 05/07/18 00:00 98.6 86 19 107/72 (84) 98 05/07/18 00:00 70 05/06/18 21:00 Nasal Cannula 2.0 05/06/18 20:00 84 05/06/18 20:00 98.4 87 18 99/77 (84) 97 05/06/18 16:00 98.0 90 23 105/72 (83) 97 05/06/18 16:00 90 Intake and Output 05/06/18 05/07/18 18:59 06:59 Intake Total 60 ml 870 ml Balance 60 ml 870 ml Intake Oral 120 ml IV Total 60 ml 750 ml # Voids 2 # Bowel Movements 1 Height (Feet): 5 Height (Inches): 6.00 Weight (Pounds): 122 General Appearance: no apparent distress Objective no change Lukasz Eric MD May 07, 2018 14:50
[2018-05-07] MEDS ORDERED: Azithromycin 600mg Tab ORAL SCH (15:00)
--- NOTE | 2018-05-07 15:08 | General Progress Note ---
Assessment/Plan Assessment/Plan Assessment and Recs: #. Lung mass, multiple -- has been seen by pulm and ID, 1. Bilateral pulmonary infiltrates, CAP versus PJP pneumonia versus other opportunistic infection or atypical infection. 2. Scattered GGO's and pulmonary nodules, likely infectious , possible underlying neoplastic process --> recommend abx as per ID, and pulm steriods --> HAART meds has been started --> can monitor for improvement resolution, recheck CT in 2 weeks on 05/13 --> biopsy of the lung can be ordered if no resolution --> needs outpatient followup and have discussed this with patient # Anemia of chronic diseas due to underlying chronic medical issues, multifactorial --> Anemia workup has been ordered/reviewed --> No evidence of hemolysis is noted, peripheral smear has been reviewed. --> Hgb goal >7. Transfuse prn. --> Epogen can be considered given haart meds started --> Medications have been reviewed #. AIDS (CD4 count 18), recently back on antiretroviral therapy --> as per ID team, management --> closely trend and continue treatment as needed #. Leukopenia due to hiv/aids--> if anc is less than 2000 consider neupogen --> neupogen if anc anc <2000 --> reverse isolation #. Pyuria. #. GERD The timing of this note does not necessarily reflect the time of the patient was seen. Greatly appreciate consultation! Subjective Constitutional: Denies: no symptoms, chills, diaphoresis, fever, malaise, weakness, other HEENT: Denies: no symptoms, eye pain, blurred vision, tearing, double vision, ear pain, ear discharge, nose pain, nose congestion, throat pain, throat swelling, mouth pain, mouth swelling, other Cardiovascular: Denies: no symptoms, chest pain, edema, irregular heart rate, lightheadedness, palpitations, syncope, other Respiratory: Denies: no symptoms, cough, orthopnea, shortness of breath, SOB with excertion, SOB at rest, sputum, stridor, wheezing, other Gastrointestinal/Abdominal: Denies: no symptoms, abdomen distended, abdominal pain, black stools, tarry stools, blood in stool, constipated, diarrhea, difficulty swallowing, nausea, poor appetite, poor fluid intake, rectal bleeding , vomiting, other Genitourinary: Denies: no symptoms, burning, discharge, frequency, flank pain, hematuria, incontinence, pain, urgency, other Neurologic/Psychiatric: Denies: no symptoms, anxiety, depressed, emotional problems, headache, numbness, paresthesia, pre-existing deficit, seizure, tingling, tremors, weakness, other Endocrine: Denies: no symptoms, excessive sweating, flushing, intolerance to cold, intolerance to heat, increased hunger, increased thirst, increased urine, unexplained weight gain, unexplained weight loss, other Hematologic/Lymphatic: Denies: no symptoms, anemia, easy bleeding, easy bruising, other Allergies: Coded Allergies: No Known Allergies (Unverified , 04/28/18) Subjective 05/04: breathing is better, cxr reviewed and improved 05/05: seen by bedside, awake, comfortable, no acute distress reported. 05/06: Pt is awake, comfortable, no events reported. 05/07: no events, tolerating antivirals and abx well, without chills, night sweats Objective Last 24 Hour Vital Signs Date Time Temp Pulse Resp B/P (MAP) Pulse Ox O2 Delivery O2 Flow Rate FiO2 05/07/18 14:55 104 101/82 (88) 05/07/18 12:00 97.7 94 22 116/76 (89) 95 05/07/18 11:52 80 05/07/18 08:08 Nasal Cannula 2.0 05/07/18 08:00 97.2 96 22 129/89 (102) 98 05/07/18 07:36 108 05/07/18 04:00 73 05/07/18 04:00 97.0 94 18 99/65 (76) 98 05/07/18 00:00 98.6 86 19 107/72 (84) 98 05/07/18 00:00 70 05/06/18 21:00 Nasal Cannula 2.0 05/06/18 20:00 84 05/06/18 20:00 98.4 87 18 99/77 (84) 97 05/06/18 16:00 98.0 90 23 105/72 (83) 97 05/06/18 16:00 90 Intake and Output 05/06/18 05/07/18 18:59 06:59 Intake Total 60 ml 870 ml Balance 60 ml 870 ml Intake Oral 120 ml IV Total 60 ml 750 ml # Voids 2 # Bowel Movements 1 Height (Feet): 5 Height (Inches): 6.00 Weight (Pounds): 122 Objective Gen: reviewed, normal General Appearance: no apparent distress, alert Head: normocephalic, atraumatic Eyes: bilateral eye normal inspection, bilateral eye PERRL ENT: hearing grossly normal, normal pharynx, no angioedema, normal voice Neck: full range of motion, supple/symm/no masses Respiratory: chest non-tender, lungs clear, normal breath sounds ++ tachypnea Cardiovascular: regular rate, rhythm, no edema Gastrointestinal: normal bowel sounds, non tender, soft, nd Musculoskeletal: back normal, gait/station normal, nt Neurologic: alert, oriented x3, responsive Psychiatric: judgement/insight normal, memory normal Skin: normal color, no rash, warm/dry Vinayak Cardona MD May 07, 2018 15:08
--- NOTE | 2018-05-07 15:17 | NUR ---
*-* INSURANCE *-* REVIEWS HAVE BEEN FAXED: VANESSA/CARY NCM:DALE P:[phone] P- [phone] [phone]...
[2018-05-07 16:37] LABS: HEMATOCRIT 32.6 % (42.0-52.0); MEAN CORPUSCULAR VOLUME 107 FL (80-99); PLATELET COUNT 293 K/UL (150-450); RED BLOOD COUNT 3.04 M/UL (4.70-6.10); RED CELL DISTRIBUTION WIDTH 13.5 % (11.6-14.8); WHITE BLOOD COUNT 5.8 K/UL (4.8-10.8)
--- NOTE | 2018-05-07 17:45 | NUR ---
NURSE NOTES: Patient transferred from to [facility] via bed in stable condition. Patient alert, oriented x4, calm. Denies pain, SOB on RA, NV. RFA heplock intact, site asymptomatic. All belongings reviewed with patient and transfer RN. Patient oriented to room, call light in reach. Bed in lowest position. Will continue to monitor.
--- NOTE | 2018-05-07 17:54 | NUR ---
NURSE NOTES: Patient has a discharge order to be discharged home once cleared by Dr. De La Paz and Dr. Kiran. Dr. De La Paz has cleared the patient and provided a prescription, which is in the patient's chart. Patient is to resume home meds and hospital meds are to be discontinued upon discharge.
--- NOTE | 2018-05-07 17:55 | NUR ---
NURSE NOTES: Patient transferred to room 318-1. Report given to SHELBY Lamas. Patient was in possession of all his belongings. Patient was in stable condition upon transfer.
[2018-05-07] MEDS ORDERED: Docusate 100mg cap ORAL SCH (18:00)
--- NOTE | 2018-05-07 19:30 | NUR ---
NURSE NOTES: RECEIVED PATIENT LYING IN BED, AWAKE, ALERT/ORIENTED X4, VERBALLY RESPONSIVE, DENIES PAIN, NO SIGNS AND SYMPTOMS OF ACUTE CARDIO RESPIRATORY DISTRESS/SHORTNESS OF BREATH, DENIES CHEST PAIN, NO PERIPHERAL EDEMA NOTED. NO REPORT OF GI DISCOMFORT, NO N/V/D. SIDE RAILS UP X3/BED IN LOWEST POSITION FOR SAFETY. ENCOURAGED PATIENT TO UTILIZE CALL LIGHT FOR ASSISTANCE, VERBALIZED UNDERSTANDING. CONTINUE WITH CURRENT PLAN OF CARE . NAD
--- NOTE | 2018-05-07 19:35 | NUR ---
HAND-OFF: Report given to Ruchi RYAN.
--- NOTE | 2018-05-07 21:12 | General Progress Note ---
Assessment/Plan Problem List: (1) Dyspnea ICD Codes: R06.00 - Dyspnea, unspecified SNOMED: 113090167 (2) Pneumonia ICD Codes: J18.9 - Pneumonia, unspecified organism SNOMED: 230469408 (3) Pulmonary edema ICD Codes: J81.1 - Chronic pulmonary edema SNOMED: 04217713 (4) AIDS nephropathy ICD Codes: B20 - Human immunodeficiency virus [HIV] disease; N28.9 - Disorder of kidney and ureter, unspecified SNOMED: 04150074, 027442094 (5) AIDS ICD Codes: B20 - Human immunodeficiency virus [HIV] disease SNOMED: 96684441 (6) Hypoalbuminemia ICD Codes: E88.09 - Other disorders of plasma-protein metabolism, not elsewhere classified SNOMED: 482177178 (7) Ground glass opacity present on imaging of lung ICD Codes: R91.8 - Other nonspecific abnormal finding of lung field SNOMED: 476045363 Status: progressing Assessment/Plan hiv pna sepsis not cleared by id for dc aids cachexia Subjective ROS Limited/Unobtainable: Yes Allergies: Coded Allergies: No Known Allergies (Unverified , 04/28/18) Objective Last 24 Hour Vital Signs Date Time Temp Pulse Resp B/P (MAP) Pulse Ox O2 Delivery O2 Flow Rate FiO2 05/07/18 17:45 98.0 93 18 120/81 (94) 95 05/07/18 16:00 97.0 119 23 125/76 (92) 97 05/07/18 15:28 89 05/07/18 14:55 104 101/82 (88) 05/07/18 12:00 97.7 94 22 116/76 (89) 95 05/07/18 11:52 80 05/07/18 08:56 Nasal Cannula 3.0 32 05/07/18 08:55 94 Nasal Cannula 3.0 32 05/07/18 08:08 Nasal Cannula 2.0 05/07/18 08:00 97.2 96 22 129/89 (102) 98 05/07/18 07:36 108 05/07/18 04:00 73 05/07/18 04:00 97.0 94 18 99/65 (76) 98 05/07/18 00:00 98.6 86 19 107/72 (84) 98 05/07/18 00:00 70 Intake and Output 05/06/18 05/07/18 19:00 07:00 Intake Total 90 ml 840 ml Balance 90 ml 840 ml Intake Oral 120 ml IV Total 90 ml 720 ml # Voids 2 # Bowel Movements 1 Laboratory Tests 05/07/18 16:10: White Blood Count 5.8, Red Blood Count 3.04L, Hemoglobin 11.0L, Hematocrit 32.6L , Mean Corpuscular Volume 107H, Mean Corpuscular Hemoglobin 36.1H, Mean Corpuscular Hemoglobin Concent 33.7, Red Cell Distribution Width 13.5, Platelet Count 293, Mean Platelet Volume 6.2L, Neutrophils (%) (Auto) , Lymphocytes (%) ( Auto) , Monocytes (%) (Auto) , Eosinophils (%) (Auto) , Basophils (%) (Auto) , Differential Total Cells Counted 100, Neutrophils % (Manual) 84H, Lymphocytes % (Manual) 4L, Monocytes % (Manual) 10, Eosinophils % (Manual) 1, Basophils % ( Manual) 0, Band Neutrophils 1, Platelet Estimate Adequate, Platelet Morphology Normal, C-Reactive Protein, Quantitative < 0.4 Height (Feet): 5 Height (Inches): 6.00 Weight (Pounds): 122 Neck: supple Cardiovascular: normal rate Respiratory/Chest: lungs clear Andreia Roy MD May 07, 2018 21:12
--- NOTE | 2018-05-07 21:56 | General Progress Note ---
Assessment/Plan Problem List: (1) Depressive disorder ICD Codes: F32.9 - Major depressive disorder, single episode, unspecified SNOMED: 46559939 Assessment/Plan seroquel standing seroquel prn the pt lacks capacity Subjective Neurologic/Psychiatric: Reports: anxiety, depressed, emotional problems Allergies: Coded Allergies: No Known Allergies (Unverified , 04/28/18) Subjective the pt was calm and is withdrawn Objective Last 24 Hour Vital Signs Date Time Temp Pulse Resp B/P (MAP) Pulse Ox O2 Delivery O2 Flow Rate FiO2 05/07/18 20:00 97.6 95 18 127/84 (98) 96 05/07/18 17:45 98.0 93 18 120/81 (94) 95 05/07/18 16:00 97.0 119 23 125/76 (92) 97 05/07/18 15:28 89 05/07/18 14:55 104 101/82 (88) 05/07/18 12:00 97.7 94 22 116/76 (89) 95 05/07/18 11:52 80 05/07/18 08:56 Nasal Cannula 3.0 32 05/07/18 08:55 94 Nasal Cannula 3.0 32 05/07/18 08:08 Nasal Cannula 2.0 05/07/18 08:00 97.2 96 22 129/89 (102) 98 05/07/18 07:36 108 05/07/18 04:00 73 05/07/18 04:00 97.0 94 18 99/65 (76) 98 05/07/18 00:00 98.6 86 19 107/72 (84) 98 05/07/18 00:00 70 Intake and Output 05/06/18 05/07/18 19:00 07:00 Intake Total 90 ml 840 ml Balance 90 ml 840 ml Intake Oral 120 ml IV Total 90 ml 720 ml # Voids 2 # Bowel Movements 1 Laboratory Tests 05/07/18 16:10: White Blood Count 5.8, Red Blood Count 3.04L, Hemoglobin 11.0L, Hematocrit 32.6L , Mean Corpuscular Volume 107H, Mean Corpuscular Hemoglobin 36.1H, Mean Corpuscular Hemoglobin Concent 33.7, Red Cell Distribution Width 13.5, Platelet Count 293, Mean Platelet Volume 6.2L, Neutrophils (%) (Auto) , Lymphocytes (%) ( Auto) , Monocytes (%) (Auto) , Eosinophils (%) (Auto) , Basophils (%) (Auto) , Differential Total Cells Counted 100, Neutrophils % (Manual) 84H, Lymphocytes % (Manual) 4L, Monocytes % (Manual) 10, Eosinophils % (Manual) 1, Basophils % ( Manual) 0, Band Neutrophils 1, Platelet Estimate Adequate, Platelet Morphology Normal, C-Reactive Protein, Quantitative < 0.4 Height (Feet): 5 Height (Inches): 6.00 Weight (Pounds): 122 General Appearance: no apparent distress, alert, thin Elver Almaguer MD May 07, 2018 21:56
[2018-05-07] MEDS: Bactrim-DS 1 tab ORAL SCH (22:17)
[2018-05-07] MEDS: Acetaminophen 500mg (ES) tab ORAL PRN (22:20)
[2018-05-08] VITALS: BP 124/83
[2018-05-08 04:00] VITALS: BP 101/75
[2018-05-08] MEDS: Bactrim-DS 1 tab ORAL SCH ×3 (06:32→22:09)
--- NOTE | 2018-05-08 07:19 | NUR ---
HAND-OFF: Report given to DIEGO TELLEZ.
--- NOTE | 2018-05-08 07:30 | NUR ---
NURSE NOTES: Patient in bed, verbally responsive and in stable condition. comfortable and calm. SOB on 2L O2 via NC. RFA saline lock, patent and intact. ambulatory, bed in the lowest position as possible. siderails are up x2. call light within reach. Will continue to monitor.
[2018-05-08 08:00] VITALS: BP 109/80
[2018-05-08 08:08] LABS: HEMATOCRIT 36.2 % (42.0-52.0); MEAN CORPUSCULAR VOLUME 109 FL (80-99); PLATELET COUNT 315 K/UL (150-450); RED BLOOD COUNT 3.32 M/UL (4.70-6.10); RED CELL DISTRIBUTION WIDTH 14.4 % (11.6-14.8); WHITE BLOOD COUNT 4.3 K/UL (4.8-10.8)
[2018-05-08 08:28] LABS: ALANINE AMINOTRANSFERASE 34 U/L (12-78); ALBUMIN 2.9 G/DL (3.4-5.0); ALBUMIN/GLOBULIN RATIO 0.5 (1.0-2.7); ALKALINE PHOSPHATASE 101 U/L (46-116); ANION GAP 6 mmol/L (5-15); ASPARTATE AMINO TRANSFERASE 29 U/L (15-37); BILIRUBIN,TOTAL 0.1 MG/DL (0.2-1.0); BLOOD UREA NITROGEN 25 mg/dL (7-18); CALCIUM 9.2 MG/DL (8.5-10.1); CARBON DIOXIDE 26 MMOL/L (21-32); CHLORIDE 95 MMOL/L (98-107); PHOSPHORUS 2.3 MG/DL (2.5-4.9); SODIUM 127 MMOL/L (136-145)
[2018-05-08] MEDS: Heparin 5000 units/ml inj SUBQ SCH ×2 (09:00→22:10)
[2018-05-08] MEDS: Docusate 100mg cap ORAL SCH ×2 (09:21→17:33)
[2018-05-08] MEDS: Thiamine 100mg tab ORAL SCH (09:21)
[2018-05-08] MEDS ORDERED: NaCl 3% 500ml 500 ML IV ONE (10:00)
[2018-05-08] MEDS ORDERED: PREDNISONE20 MG ORAL ×2 (11:18→11:19)
[2018-05-08] MEDS ORDERED: PREDNISONE10 MG ORAL ×2 (11:19→11:20)
--- NOTE | 2018-05-08 11:30 | NUR ---
NURSE NOTES: awaiting for Dr Cuba Kiran for clearance upon d/c. faxed Rx to [facility].
[2018-05-08 12:00] VITALS: BP 104/71
[2018-05-08] MEDS ORDERED: Lidocaine 4% Cream 15g TOPIC PRN (13:00)
--- NOTE | 2018-05-08 13:48 | Nephrology Progress Note ---
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 AIDs Nephropathy Sz Asthma HIV / AIDS Anemia Low Na Plan trial 3% and lasix 24 H urine Protein being collected under ! gram Anemia cotter, low folate low bp start Midodrine U os and S os for eval of low Na Ok to DC- If in house check labs in am per orders Subjective ROS Limited/Unobtainable: No Constitutional: Reports: malaise Objective Objective Last 24 Hour Vital Signs Date Time Temp Pulse Resp B/P (MAP) Pulse Ox O2 Delivery O2 Flow Rate FiO2 05/08/18 12:00 97.7 92 21 104/71 (82) 97 05/08/18 09:00 Nasal Cannula 2.0 05/08/18 08:00 98.4 92 20 109/80 (90) 100 05/08/18 04:00 97.9 92 18 101/75 (84) 95 05/08/18 00:00 98.6 89 18 124/83 (97) 95 05/07/18 22:50 97.9 05/07/18 21:00 Nasal Cannula 2.0 05/07/18 20:00 97.6 95 18 127/84 (98) 96 05/07/18 17:45 98.0 93 18 120/81 (94) 95 05/07/18 16:00 97.0 119 23 125/76 (92) 97 05/07/18 15:28 89 05/07/18 14:55 104 101/82 (88) Intake and Output 05/07/18 05/08/18 18:59 06:59 Intake Total 400 ml 480 ml Balance 400 ml 480 ml Intake Oral 400 ml 480 ml # Voids 3 3 # Bowel Movements 2 Laboratory Tests 05/07/18 16:10: White Blood Count 5.8, Red Blood Count 3.04L, Hemoglobin 11.0L, Hematocrit 32.6L , Mean Corpuscular Volume 107H, Mean Corpuscular Hemoglobin 36.1H, Mean Corpuscular Hemoglobin Concent 33.7, Red Cell Distribution Width 13.5, Platelet Count 293, Mean Platelet Volume 6.2L, Neutrophils (%) (Auto) , Lymphocytes (%) ( Auto) , Monocytes (%) (Auto) , Eosinophils (%) (Auto) , Basophils (%) (Auto) , Differential Total Cells Counted 100, Neutrophils % (Manual) 84H, Lymphocytes % (Manual) 4L, Monocytes % (Manual) 10, Eosinophils % (Manual) 1, Basophils % ( Manual) 0, Band Neutrophils 1, Platelet Estimate Adequate, Platelet Morphology Normal, C-Reactive Protein, Quantitative < 0.4 05/08/18 05:24: White Blood Count 4.3L, Red Blood Count 3.32L, Hemoglobin 12.0L, Hematocrit 36.2L, Mean Corpuscular Volume 109H, Mean Corpuscular Hemoglobin 36.2H, Mean Corpuscular Hemoglobin Concent 33.2, Red Cell Distribution Width 14.4, Platelet Count 315, Mean Platelet Volume 6.4L, Neutrophils (%) (Auto) , Lymphocytes (%) ( Auto) , Monocytes (%) (Auto) , Eosinophils (%) (Auto) , Basophils (%) (Auto) , Differential Total Cells Counted 100, Neutrophils % (Manual) 93H, Lymphocytes % (Manual) 5L, Monocytes % (Manual) 2, Eosinophils % (Manual) 0, Basophils % ( Manual) 0, Band Neutrophils 0, Platelet Estimate Adequate, Platelet Morphology Normal, Red Blood Cell Morphology Normal, Sodium Level 127L, Potassium Level 4.0 , Chloride Level 95L, Carbon Dioxide Level 26, Anion Gap 6, Blood Urea Nitrogen 25H, Creatinine 1.0, Estimat Glomerular Filtration Rate > 60, Glucose Level 78, Uric Acid 2.6, Calcium Level 9.2, Phosphorus Level 2.3L, Magnesium Level 2.0, Total Bilirubin 0.1L, Aspartate Amino Transf (AST/SGOT) 29, Alanine Aminotransferase (ALT/SGPT) 34, Alkaline Phosphatase 101, Pro-B-Type Natriuretic Peptide 62, Total Protein 8.3H, Albumin 2.9L, Globulin 5.4, Albumin/ Globulin Ratio 0.5L Height (Feet): 5 Height (Inches): 6.00 Weight (Pounds): 122 General Appearance: no apparent distress Objective no change Lukasz Eric MD May 08, 2018 13:48
--- NOTE | 2018-05-08 14:08 | Cardiology Report ---
APPROVED REPORT EKG Measurement Heart [id number] Sinus tachycardia with occasional premature ventricular complexes Nonspecific ST and T wave abnormality Abnormal ECG
[2018-05-08] MEDS: Acetaminophen 500mg (ES) tab ORAL PRN (14:15)
--- NOTE | 2018-05-08 14:41 | Infectious Diseases Prog Note ---
Assessment/Plan Assessment/Plan A 1. pneumonia ,PCP egative 2. AIDS, cd4 18 3. seizures 4. asthma 5. Lung mass & Nodules 6. CMV viremia P 1. Continue azithromycin Prophylaxis 2. continue Bactrim PO & Valganciclovir 4. Continue ART with Genvoya 4. Case was D/W division chair, -recommends PCP treatment & repeat of CT scanin few weeks Subjective ROS Limited/Unobtainable: No Constitutional: Reports: no symptoms, other - feels better Respiratory: Reports: no symptoms Gastrointestinal/Abdominal: Reports: no symptoms Genitourinary: Reports: no symptoms Allergies: Coded Allergies: No Known Allergies (Unverified , 04/28/18) Objective Vital Signs Last 24 Hour Vital Signs Date Time Temp Pulse Resp B/P (MAP) Pulse Ox O2 Delivery O2 Flow Rate FiO2 05/08/18 12:00 97.7 92 21 104/71 (82) 97 05/08/18 09:00 Nasal Cannula 2.0 05/08/18 08:00 98.4 92 20 109/80 (90) 100 05/08/18 04:00 97.9 92 18 101/75 (84) 95 05/08/18 00:00 98.6 89 18 124/83 (97) 95 05/07/18 22:50 97.9 05/07/18 21:00 Nasal Cannula 2.0 05/07/18 20:00 97.6 95 18 127/84 (98) 96 05/07/18 17:45 98.0 93 18 120/81 (94) 95 05/07/18 16:00 97.0 119 23 125/76 (92) 97 05/07/18 15:28 89 05/07/18 14:55 104 101/82 (88) Height (Feet): 5 Height (Inches): 6.00 Weight (Pounds): 122 General Appearance: cachetic HEENT: mucous membranes moist Respiratory/Chest: lungs clear Cardiovascular: normal rate Abdomen: soft, non tender Extremities: no edema Neurologic/Psychiatric: alert, responsive Laboratory Tests Test 05/07/18 16:10 05/08/18 05:24 White Blood Count 5.8 K/UL (4.8-10.8) 4.3 K/UL (4.8-10.8) L Red Blood Count 3.04 M/UL (4.70-6.10) L 3.32 M/UL (4.70-6.10) L Hemoglobin 11.0 G/DL (14.2-18.0) L 12.0 G/DL (14.2-18.0) L Hematocrit 32.6 % (42.0-52.0) L 36.2 % (42.0-52.0) L Mean Corpuscular Volume 107 FL (80-99) H 109 FL (80-99) H Mean Corpuscular Hemoglobin 36.1 PG (27.0-31.0) H 36.2 PG (27.0-31.0) H Mean Corpuscular Hemoglobin Concent 33.7 G/DL (32.0-36.0) 33.2 G/DL (32.0-36.0) Red Cell Distribution Width 13.5 % (11.6-14.8) 14.4 % (11.6-14.8) Platelet Count 293 K/UL (150-450) 315 K/UL (150-450) Mean Platelet Volume 6.2 FL (6.5-10.1) L 6.4 FL (6.5-10.1) L Neutrophils (%) (Auto) % (45.0-75.0) % (45.0-75.0) Lymphocytes (%) (Auto) % (20.0-45.0) % (20.0-45.0) Monocytes (%) (Auto) % (1.0-10.0) % (1.0-10.0) Eosinophils (%) (Auto) % (0.0-3.0) % (0.0-3.0) Basophils (%) (Auto) % (0.0-2.0) % (0.0-2.0) Differential Total Cells Counted 100 100 Neutrophils % (Manual) 84 % (45-75) H 93 % (45-75) H Lymphocytes % (Manual) 4 % (20-45) L 5 % (20-45) L Monocytes % (Manual) 10 % (1-10) 2 % (1-10) Eosinophils % (Manual) 1 % (0-3) 0 % (0-3) Basophils % (Manual) 0 % (0-2) 0 % (0-2) Band Neutrophils 1 % (0-8) 0 % (0-8) Platelet Estimate Adequate Adequate Platelet Morphology Normal Normal C-Reactive Protein, Quantitative < 0.4 mg/dL (0.00-0.90) Red Blood Cell Morphology Normal Sodium Level 127 MMOL/L (136-145) L Potassium Level 4.0 MMOL/L (3.5-5.1) Chloride Level 95 MMOL/L (98-107) L Carbon Dioxide Level 26 MMOL/L (21-32) Anion Gap 6 mmol/L (5-15) Blood Urea Nitrogen 25 mg/dL (7-18) H Creatinine 1.0 MG/DL (0.55-1.30) Estimat Glomerular Filtration Rate > 60 mL/min (>60) Glucose Level 78 MG/DL (74-106) Uric Acid 2.6 MG/DL (2.6-7.2) Calcium Level 9.2 MG/DL (8.5-10.1) Phosphorus Level 2.3 MG/DL (2.5-4.9) L Magnesium Level 2.0 MG/DL (1.8-2.4) Total Bilirubin 0.1 MG/DL (0.2-1.0) L Aspartate Amino Transf (AST/SGOT) 29 U/L (15-37) Alanine Aminotransferase (ALT/SGPT) 34 U/L (12-78) Alkaline Phosphatase 101 U/L (46-116) Pro-B-Type Natriuretic Peptide 62 pg/mL (0-125) Total Protein 8.3 G/DL (6.4-8.2) H Albumin 2.9 G/DL (3.4-5.0) L Globulin 5.4 g/dL Albumin/Globulin Ratio 0.5 (1.0-2.7) L Current Medications Medications (Trade) Dose Ordered Sig/Garrick Route PRN Reason Start Time Stop Time Status Last Admin Dose Admin Acetaminophen (Tylenol) 500 mg Q4H PRN ORAL Mild Pain/Temp > 100.5 05/07/18 18:00 05/28/18 17:59 05/08/18 14:15 Azithromycin (Zithromax) 1,200 mg ONCE A WEEK ORAL 05/14/18 15:00 05/15/18 15:00 Docusate Sodium (Colace) 100 mg TWICE A DAY ORAL 05/08/18 09:00 06/07/18 08:59 05/08/18 09:21 Folic Acid (Folate) 2 mg DAILY ORAL 05/08/18 09:00 05/30/18 08:59 05/08/18 09:20 Furosemide (Lasix) 10 mg EVERY 8 HOURS IV 05/08/18 14:00 06/07/18 13:59 Heparin Sodium (Porcine) (Heparin 5000 units/ml) 5,000 units EVERY 12 HOURS SUBQ 05/07/18 21:00 05/29/18 20:59 05/07/18 21:01 Hydrocortisone (Anusol HC) 1 applic DAILYPRN PRN RECTAL hemorrhoid 05/07/18 21:00 05/28/18 20:59 Lidocaine (Xylocaine) 1 applic DAILYPRN PRN TOPIC hemorroidal pain 05/08/18 13:00 05/29/18 12:59 Midodrine (Pro-Amatine) 5 mg THREE TIMES A DAY ORAL 05/08/18 09:00 06/07/18 08:59 05/08/18 14:11 Pantoprazole (Protonix) 40 mg EVERY 12 HOURS ORAL 05/07/18 21:00 06/01/18 20:59 05/08/18 09:22 Patient Own Medication (Patient's Own Med) 1 ea DAILY ORAL 05/08/18 09:00 06/07/18 08:59 05/08/18 09:00 Prednisone (predniSONE) 30 mg BID ORAL 05/08/18 09:00 06/07/18 08:59 05/08/18 09:21 Sodium Chloride 500 ml @ 30 mls/hr ONCE ONCE IV 05/08/18 10:00 05/09/18 02:39 05/08/18 11:31 Thiamine HCl (Vitamin B1) 100 mg DAILY ORAL 05/08/18 09:00 05/30/18 08:59 05/08/18 09:21 Trimethoprim/ Sulfamethoxazole (Bactrim-DS) 2 tab Q8HR ORAL 05/07/18 22:00 05/14/18 13:59 05/08/18 14:11 Valganciclovir (Valcyte) 900 mg EVERY 12 HOURS ORAL 05/07/18 21:00 06/06/18 20:59 05/08/18 09:22 Reginald Kiran MD May 08, 2018 14:41
[2018-05-08 16:00] VITALS: BP 113/75
--- NOTE | 2018-05-08 16:19 | General Progress Note ---
Assessment/Plan Problem List: (1) Depressive disorder ICD Codes: F32.9 - Major depressive disorder, single episode, unspecified SNOMED: 27243329 Assessment/Plan seroquel standing seroquel prn the pt lacks capacity Subjective Neurologic/Psychiatric: Reports: anxiety, depressed, emotional problems Allergies: Coded Allergies: No Known Allergies (Unverified , 04/28/18) Subjective the pt was calm and is withdrawn Objective Last 24 Hour Vital Signs Date Time Temp Pulse Resp B/P (MAP) Pulse Ox O2 Delivery O2 Flow Rate FiO2 05/08/18 14:45 97.7 05/08/18 12:00 97.7 92 21 104/71 (82) 97 05/08/18 09:00 Nasal Cannula 2.0 05/08/18 08:00 98.4 92 20 109/80 (90) 100 05/08/18 04:00 97.9 92 18 101/75 (84) 95 05/08/18 00:00 98.6 89 18 124/83 (97) 95 05/07/18 21:00 Nasal Cannula 2.0 05/07/18 20:00 97.6 95 18 127/84 (98) 96 05/07/18 17:45 98.0 93 18 120/81 (94) 95 Intake and Output 05/07/18 05/08/18 18:59 06:59 Intake Total 400 ml 480 ml Balance 400 ml 480 ml Intake Oral 400 ml 480 ml # Voids 3 3 # Bowel Movements 2 Laboratory Tests 05/08/18 05:24: White Blood Count 4.3L, Red Blood Count 3.32L, Hemoglobin 12.0L, Hematocrit 36.2L, Mean Corpuscular Volume 109H, Mean Corpuscular Hemoglobin 36.2H, Mean Corpuscular Hemoglobin Concent 33.2, Red Cell Distribution Width 14.4, Platelet Count 315, Mean Platelet Volume 6.4L, Neutrophils (%) (Auto) , Lymphocytes (%) ( Auto) , Monocytes (%) (Auto) , Eosinophils (%) (Auto) , Basophils (%) (Auto) , Differential Total Cells Counted 100, Neutrophils % (Manual) 93H, Lymphocytes % (Manual) 5L, Monocytes % (Manual) 2, Eosinophils % (Manual) 0, Basophils % ( Manual) 0, Band Neutrophils 0, Platelet Estimate Adequate, Platelet Morphology Normal, Red Blood Cell Morphology Normal, Sodium Level 127L, Potassium Level 4.0 , Chloride Level 95L, Carbon Dioxide Level 26, Anion Gap 6, Blood Urea Nitrogen 25H, Creatinine 1.0, Estimat Glomerular Filtration Rate > 60, Glucose Level 78, Uric Acid 2.6, Calcium Level 9.2, Phosphorus Level 2.3L, Magnesium Level 2.0, Total Bilirubin 0.1L, Aspartate Amino Transf (AST/SGOT) 29, Alanine Aminotransferase (ALT/SGPT) 34, Alkaline Phosphatase 101, Pro-B-Type Natriuretic Peptide 62, Total Protein 8.3H, Albumin 2.9L, Globulin 5.4, Albumin/ Globulin Ratio 0.5L Height (Feet): 5 Height (Inches): 6.00 Weight (Pounds): 122 Elver Almaguer MD May 08, 2018 16:19
--- NOTE | 2018-05-08 16:51 | General Progress Note ---
Assessment/Plan Assessment/Plan Assessment and Recs: #. Lung mass, multiple -- has been seen by pulm and ID, 1. Bilateral pulmonary infiltrates, CAP versus PJP pneumonia versus other opportunistic infection or atypical infection. 2. Scattered GGO's and pulmonary nodules, likely infectious , possible underlying neoplastic process --> recommend abx as per ID, and pulm steriods --> HAART meds has been started --> can monitor for improvement resolution, recheck CT in 2 weeks on 05/13 --> biopsy of the lung can be ordered if no resolution --> needs outpatient followup and have discussed this with patient --> in the meantime consider cxr followup # Anemia of chronic diseas due to underlying chronic medical issues, multifactorial --> Anemia workup has been ordered/reviewed --> No evidence of hemolysis is noted, peripheral smear has been reviewed. --> Hgb goal >7. Transfuse prn. --> Epogen can be considered given haart meds started --> Medications have been reviewed #. AIDS (CD4 count 18), recently back on antiretroviral therapy --> as per ID team, management --> closely trend and continue treatment as needed #. Leukopenia due to hiv/aids--> if anc is less than 2000 consider neupogen --> neupogen if anc anc <2000 --> reverse isolation #. Pyuria. #. GERD The timing of this note does not necessarily reflect the time of the patient was seen. Greatly appreciate consultation! Subjective Constitutional: Denies: no symptoms, chills, diaphoresis, fever, malaise, weakness, other HEENT: Denies: no symptoms, eye pain, blurred vision, tearing, double vision, ear pain, ear discharge, nose pain, nose congestion, throat pain, throat swelling, mouth pain, mouth swelling, other Cardiovascular: Denies: no symptoms, chest pain, edema, irregular heart rate, lightheadedness, palpitations, syncope, other Respiratory: Denies: no symptoms, cough, orthopnea, shortness of breath, SOB with excertion, SOB at rest, sputum, stridor, wheezing, other Genitourinary: Denies: no symptoms, burning, discharge, frequency, flank pain, hematuria, incontinence, pain, urgency, other Neurologic/Psychiatric: Denies: no symptoms, anxiety, depressed, emotional problems, headache, numbness, paresthesia, pre-existing deficit, seizure, tingling, tremors, weakness, other Allergies: Coded Allergies: No Known Allergies (Unverified , 04/28/18) Subjective 05/04: breathing is better, cxr reviewed and improved 05/05: seen by bedside, awake, comfortable, no acute distress reported. 05/06: Pt is awake, comfortable, no events reported. 05/07: no events, tolerating antivirals and abx well, without chills, night sweats 05/08: on abx and antifungals as per id Objective Last 24 Hour Vital Signs Date Time Temp Pulse Resp B/P (MAP) Pulse Ox O2 Delivery O2 Flow Rate FiO2 05/08/18 16:00 98.2 92 19 113/75 (88) 94 05/08/18 14:45 97.7 05/08/18 12:00 97.7 92 21 104/71 (82) 97 05/08/18 09:00 Nasal Cannula 2.0 05/08/18 08:00 98.4 92 20 109/80 (90) 100 05/08/18 04:00 97.9 92 18 101/75 (84) 95 05/08/18 00:00 98.6 89 18 124/83 (97) 95 05/07/18 21:00 Nasal Cannula 2.0 05/07/18 20:00 97.6 95 18 127/84 (98) 96 05/07/18 17:45 98.0 93 18 120/81 (94) 95 Intake and Output 05/07/18 05/08/18 18:59 06:59 Intake Total 400 ml 480 ml Balance 400 ml 480 ml Intake Oral 400 ml 480 ml # Voids 3 3 # Bowel Movements 2 Laboratory Tests 05/08/18 05:24: White Blood Count 4.3L, Red Blood Count 3.32L, Hemoglobin 12.0L, Hematocrit 36.2L, Mean Corpuscular Volume 109H, Mean Corpuscular Hemoglobin 36.2H, Mean Corpuscular Hemoglobin Concent 33.2, Red Cell Distribution Width 14.4, Platelet Count 315, Mean Platelet Volume 6.4L, Neutrophils (%) (Auto) , Lymphocytes (%) ( Auto) , Monocytes (%) (Auto) , Eosinophils (%) (Auto) , Basophils (%) (Auto) , Differential Total Cells Counted 100, Neutrophils % (Manual) 93H, Lymphocytes % (Manual) 5L, Monocytes % (Manual) 2, Eosinophils % (Manual) 0, Basophils % ( Manual) 0, Band Neutrophils 0, Platelet Estimate Adequate, Platelet Morphology Normal, Red Blood Cell Morphology Normal, Sodium Level 127L, Potassium Level 4.0 , Chloride Level 95L, Carbon Dioxide Level 26, Anion Gap 6, Blood Urea Nitrogen 25H, Creatinine 1.0, Estimat Glomerular Filtration Rate > 60, Glucose Level 78, Uric Acid 2.6, Calcium Level 9.2, Phosphorus Level 2.3L, Magnesium Level 2.0, Total Bilirubin 0.1L, Aspartate Amino Transf (AST/SGOT) 29, Alanine Aminotransferase (ALT/SGPT) 34, Alkaline Phosphatase 101, Pro-B-Type Natriuretic Peptide 62, Total Protein 8.3H, Albumin 2.9L, Globulin 5.4, Albumin/ Globulin Ratio 0.5L Height (Feet): 5 Height (Inches): 6.00 Weight (Pounds): 122 Abdomen: no mass Objective Gen: reviewed, normal General Appearance: no apparent distress, alert Head: normocephalic, atraumatic Eyes: bilateral eye normal inspection, bilateral eye PERRL ENT: hearing grossly normal, normal pharynx, no angioedema, normal voice Neck: full range of motion, supple/symm/no masses Respiratory: chest non-tender, lungs clear, normal breath sounds ++ tachypnea Cardiovascular: regular rate, rhythm, no edema Gastrointestinal: normal bowel sounds, non tender, soft, nd Musculoskeletal: back normal, gait/station normal, nt Neurologic: alert, oriented x3, responsive Psychiatric: judgement/insight normal Skin: normal color, no rash, warm/dry Vinayak Cardona MD May 08, 2018 16:51
--- NOTE | 2018-05-08 16:53 | NUR ---
NURSE NOTES: spoke with Zachary for the walk test. per Dr Armendariz patient not cleared for discharge and per Kathi West not cleared, need to hear from the microbiology for result. will cont to monitor.
--- NOTE | 2018-05-08 17:47 | NUR ---
RESPIRATORY NOTE: Walk test started @1742. Patient heart rate @124 with SPO2 of 98% Time 1743 Intra walk test Heart rate @ 129 with SPO2 of 94% Time 1745 Post walk test heart rate @ 132 with SPO2 of 93% No signs of shortness of breath, elevated breath rate, or other distress noted.
--- NOTE | 2018-05-08 19:16 | NUR ---
NURSE NOTESPatient received from Violette JosephPATIENT A/A/AOX4 . Patient denies any pain at this time .no s/s of distress noted RFA g#20 WITH HYPERTONIC AT 30CC /HR infusing well .call light within reach bed in low position t all times will continue to monitor. Addendum: 05/09/18 at 0357 by OTILIA ELY LVN call light within reach. bed in low position at all times . will continue to monitor.
--- NOTE | 2018-05-08 19:16 | NUR ---
HAND-OFF: Report given to Mansi.
--- NOTE | 2018-05-08 19:41 | NUR ---
CASE MANAGEMENT:REVIEW 05/08/18 SI: PNEUMONIA. WASTING SYNDROME MULTIPLE LUNG NODULES T 98.2 HR 92 RR 19 B/P 113/75 SATS 94% ON 2L/NC WBC 4.3 NA 127 CL 95 BUN 25 PHOS 2.3 TBILI 0.1 IS: IV BACTRIM Q8HRS IV ROCEPHIN Q24H AZITHROMYCIN PO Q24H PREDNISONE PO BID MIDODRINE PO TID PROTONIX PO Q12H HEPARIN SUBQ Q12H : MED/SURG STATUS
[2018-05-08 20:00] VITALS: BP 108/77
--- NOTE | 2018-05-08 21:56 | General Progress Note ---
Assessment/Plan Problem List: (1) Dyspnea ICD Codes: R06.00 - Dyspnea, unspecified SNOMED: 305175130 (2) Pneumonia ICD Codes: J18.9 - Pneumonia, unspecified organism SNOMED: 852437499 (3) Pulmonary edema ICD Codes: J81.1 - Chronic pulmonary edema SNOMED: 41728977 (4) AIDS nephropathy ICD Codes: B20 - Human immunodeficiency virus [HIV] disease; N28.9 - Disorder of kidney and ureter, unspecified SNOMED: 94579423, 116419518 (5) AIDS ICD Codes: B20 - Human immunodeficiency virus [HIV] disease SNOMED: 21675817 (6) Hypoalbuminemia ICD Codes: E88.09 - Other disorders of plasma-protein metabolism, not elsewhere classified SNOMED: 379694706 (7) Ground glass opacity present on imaging of lung ICD Codes: R91.8 - Other nonspecific abnormal finding of lung field SNOMED: 421645808 Status: progressing Assessment/Plan hiv pna sepsis not cleared by id for dc aids cachexia sepsis pna dc once cleared by id dementia temporal wasting Subjective ROS Limited/Unobtainable: Yes Allergies: Coded Allergies: No Known Allergies (Unverified , 04/28/18) Objective Last 24 Hour Vital Signs Date Time Temp Pulse Resp B/P (MAP) Pulse Ox O2 Delivery O2 Flow Rate FiO2 05/08/18 20:00 97.7 93 19 108/77 (87) 97 05/08/18 16:00 98.2 92 19 113/75 (88) 94 05/08/18 14:45 97.7 05/08/18 12:00 97.7 92 21 104/71 (82) 97 05/08/18 09:00 Nasal Cannula 2.0 05/08/18 08:00 98.4 92 20 109/80 (90) 100 05/08/18 04:00 97.9 92 18 101/75 (84) 95 05/08/18 00:00 98.6 89 18 124/83 (97) 95 Intake and Output 05/07/18 05/08/18 19:00 07:00 Intake Total 400 ml 480 ml Balance 400 ml 480 ml Intake Oral 400 ml 480 ml # Voids 3 3 # Bowel Movements 2 Laboratory Tests 05/08/18 05:24: White Blood Count 4.3L, Red Blood Count 3.32L, Hemoglobin 12.0L, Hematocrit 36.2L, Mean Corpuscular Volume 109H, Mean Corpuscular Hemoglobin 36.2H, Mean Corpuscular Hemoglobin Concent 33.2, Red Cell Distribution Width 14.4, Platelet Count 315, Mean Platelet Volume 6.4L, Neutrophils (%) (Auto) , Lymphocytes (%) ( Auto) , Monocytes (%) (Auto) , Eosinophils (%) (Auto) , Basophils (%) (Auto) , Differential Total Cells Counted 100, Neutrophils % (Manual) 93H, Lymphocytes % (Manual) 5L, Monocytes % (Manual) 2, Eosinophils % (Manual) 0, Basophils % ( Manual) 0, Band Neutrophils 0, Platelet Estimate Adequate, Platelet Morphology Normal, Red Blood Cell Morphology Normal, Sodium Level 127L, Potassium Level 4.0 , Chloride Level 95L, Carbon Dioxide Level 26, Anion Gap 6, Blood Urea Nitrogen 25H, Creatinine 1.0, Estimat Glomerular Filtration Rate > 60, Glucose Level 78, Uric Acid 2.6, Calcium Level 9.2, Phosphorus Level 2.3L, Magnesium Level 2.0, Total Bilirubin 0.1L, Aspartate Amino Transf (AST/SGOT) 29, Alanine Aminotransferase (ALT/SGPT) 34, Alkaline Phosphatase 101, Pro-B-Type Natriuretic Peptide 62, Total Protein 8.3H, Albumin 2.9L, Globulin 5.4, Albumin/ Globulin Ratio 0.5L Height (Feet): 5 Height (Inches): 6.00 Weight (Pounds): 122 Cardiovascular: normal rate Respiratory/Chest: lungs clear Abdomen: soft Andreia Roy MD May 08, 2018 21:56
--- NOTE | 2018-05-08 22:00 | Pulmonology Progress Note ---
Assessment/Plan Assessment/Plan Pulmonary Progress Note Assessment/Plan Problems: (1) Opportunistic infection (2) Lung nodule, multiple (3) Ground glass opacity present on imaging of lung (4) Pneumonia (5) AIDS (6) Urine positive for cytomegalovirus (CMV) by PCR (7) Hyponatremia ASSESSMENT: The patient is a 38-year-old male with a history of AIDS (CD4 count 18) presenting with respiratory illness with bilateral infiltrates, GGO's and scattered nodular opacities concerning for possible PJP pneumonia versus other typical or atypical infectious process of OI. empirically on Bactrim and steroids while awaiting LDH, ABG, PCP DFA. PROBLEM LIST: 1. Bilateral pulmonary infiltrates, CAP versus PJP pneumonia versus other opportunistic infection or atypical infection. 2. Scattered GGO's and pulmonary nodules, likely infectious, possible underlying neoplastic process 2. AIDS (CD4 count 18), recently back on antiretroviral therapy. 3. Leukopenia. 4. Anemia. 5. Pyuria. 6. GERD 7. CMV PCR + TREATMENT PLAN: 1. Optimize pulmonary hygiene/mobilize as tolerated. 2. RA saturation adequate with ambulation, home O2 not needed 3. Will schedule bronch if serologic w/u unrevealing 4. F/U serologies: unclear why PJP DFA NOT BACK, Per ID will be back tomorrow. Defer management of CMV to ID 5. Abx (CTx, Azithro, IV TMP-SMX) per ID, cART per ID 6. Continue Pred 30 BID and taper - taper written 7. [id number] and p.r.n. bronchodilators. 8. Aspiration precautions. 9. Parenchymal nodules need to be followed to resolution or biopsied to R/O neoplastic process - REPEAT CT IN 2-4 WEEKS 10. DVT prophylaxis, heparin subcutaneous. 11. Monitor volumes and renal function: alb/lasix, fluid restriction and midodrine per renal 12. Dr. Nehemiah Montemayor, patient HIV MD/PCP, was called x [phone] - discussed with his drafter assistant Re: the need for F/U CT, PULM and ID follow up. I am awaiting his call back, my cell phone provided. 13. CM consult placed - ADEQUATE FOLLOW UP NEEDS TO BE ENSURED PRIOR TO DISCHARGE WELL. I WILL ORDER A REPEAT CT TENTATIVELY @ [facility] AND THE PATIENT CAN FOLLOW UP WITH ME WELL IN 2 WEEKS (after the CT) Subjective Allergies: Coded Allergies: No Known Allergies (Unverified , 04/28/18) Subjective AFVSS on RA ---> ambulatory SaO2 > 95% No cough no wheezing no SOB no CP no FC DFA still not back - per ID will be resulted tomorrow Objective Vital Signs Noted General Appearance: WD/WN, no acute distress HEENT: normocephalic, atraumatic, anicteric, mucous membranes moist Respiratory/Chest: chest wall non-tender, lungs clear, normal breath sounds, no respiratory distress, no accessory muscle use Cardiovascular: normal peripheral pulses, normal rate, regular rhythm Abdomen: normal bowel sounds, soft, non tender, no organomegaly, non distended , no mass Extremities: no cyanosis, no clubbing, no edema Current Medications Medications (Trade) Dose Ordered Sig/Garrick Route PRN Reason Start Time Stop Time Status Last Admin Dose Admin Acetaminophen (Tylenol) 500 mg Q4H PRN ORAL Mild Pain/Temp > 100.5 05/01/18 18:30 05/28/18 18:29 Azithromycin (Zithromax) 250 mg Q24H ORAL 05/05/18 14:00 05/09/18 13:59 05/06/18 14:32 Ceftriaxone Sodium 1 gm/ Dextrose 55 ml @ 110 mls/hr Q24H IVPB 05/05/18 14:00 05/09/18 13:59 05/06/18 14:32 Docusate Sodium (Colace) 100 mg TWICE A DAY ORAL 05/06/18 18:00 06/05/18 17:59 05/07/18 09:23 Folic Acid (Folate) 2 mg DAILY ORAL 05/03/18 09:00 05/30/18 08:59 05/07/18 09:22 Heparin Sodium (Porcine) (Heparin 5000 units/ml) 5,000 units EVERY 12 HOURS SUBQ 05/01/18 21:00 05/29/18 20:59 05/04/18 21:40 Hydrocortisone (Anusol HC) 1 applic DAILYPRN PRN RECTAL hemorrhoid 05/01/18 21:00 05/28/18 20:59 Lidocaine (Xylocaine) 1 applic DAILYPRN PRN TOPIC hemorroidal pain 05/02/18 13:00 05/29/18 12:59 05/06/18 14:32 Midodrine (Pro-Amatine) 5 mg THREE TIMES A DAY ORAL 05/04/18 13:00 05/30/18 17:59 05/07/18 09:23 Pantoprazole (Protonix) 40 mg EVERY 12 HOURS ORAL 05/02/18 21:00 06/01/18 20:59 05/07/18 09:21 Patient Own Medication (Patient's Own Med) 1 ea DAILY ORAL 05/02/18 09:00 05/29/18 08:59 05/07/18 09:21 Prednisone (predniSONE) 30 mg BID ORAL 05/05/18 18:00 05/29/18 17:59 05/07/18 09:22 Thiamine HCl (Vitamin B1) 100 mg DAILY ORAL 05/02/18 09:00 05/30/18 08:59 05/07/18 09:22 Trimethoprim/ Sulfamethoxazole 20 ml/Dextrose 570 ml @ 380 mls/hr Q8HR@0100,0900,1700 IV 05/06/18 01:00 05/09/18 00:59 05/07/18 09:21 Subjective ROS Limited/Unobtainable: No Allergies: Coded Allergies: No Known Allergies (Unverified , 04/28/18) Objective Last 24 Hour Vital Signs Date Time Temp Pulse Resp B/P (MAP) Pulse Ox O2 Delivery O2 Flow Rate FiO2 05/08/18 20:00 97.7 93 19 108/77 (87) 97 05/08/18 16:00 98.2 92 19 113/75 (88) 94 05/08/18 14:45 97.7 05/08/18 12:00 97.7 92 21 104/71 (82) 97 05/08/18 09:00 Nasal Cannula 2.0 05/08/18 08:00 98.4 92 20 109/80 (90) 100 05/08/18 04:00 97.9 92 18 101/75 (84) 95 05/08/18 00:00 98.6 89 18 124/83 (97) 95 Intake and Output 05/07/18 05/08/18 19:00 07:00 Intake Total 400 ml 480 ml Balance 400 ml 480 ml Intake Oral 400 ml 480 ml # Voids 3 3 # Bowel Movements 2 Laboratory Tests 05/08/18 05:24: White Blood Count 4.3L, Red Blood Count 3.32L, Hemoglobin 12.0L, Hematocrit 36.2L, Mean Corpuscular Volume 109H, Mean Corpuscular Hemoglobin 36.2H, Mean Corpuscular Hemoglobin Concent 33.2, Red Cell Distribution Width 14.4, Platelet Count 315, Mean Platelet Volume 6.4L, Neutrophils (%) (Auto) , Lymphocytes (%) ( Auto) , Monocytes (%) (Auto) , Eosinophils (%) (Auto) , Basophils (%) (Auto) , Differential Total Cells Counted 100, Neutrophils % (Manual) 93H, Lymphocytes % (Manual) 5L, Monocytes % (Manual) 2, Eosinophils % (Manual) 0, Basophils % ( Manual) 0, Band Neutrophils 0, Platelet Estimate Adequate, Platelet Morphology Normal, Red Blood Cell Morphology Normal, Sodium Level 127L, Potassium Level 4.0 , Chloride Level 95L, Carbon Dioxide Level 26, Anion Gap 6, Blood Urea Nitrogen 25H, Creatinine 1.0, Estimat Glomerular Filtration Rate > 60, Glucose Level 78, Uric Acid 2.6, Calcium Level 9.2, Phosphorus Level 2.3L, Magnesium Level 2.0, Total Bilirubin 0.1L, Aspartate Amino Transf (AST/SGOT) 29, Alanine Aminotransferase (ALT/SGPT) 34, Alkaline Phosphatase 101, Pro-B-Type Natriuretic Peptide 62, Total Protein 8.3H, Albumin 2.9L, Globulin 5.4, Albumin/ Globulin Ratio 0.5L Current Medications Medications (Trade) Dose Ordered Sig/Garrick Route PRN Reason Start Time Stop Time Status Last Admin Dose Admin Acetaminophen (Tylenol) 500 mg Q4H PRN ORAL Mild Pain/Temp > 100.5 05/07/18 18:00 05/28/18 17:59 05/08/18 14:15 Azithromycin (Zithromax) 1,200 mg ONCE A WEEK ORAL 05/14/18 15:00 05/15/18 15:00 Docusate Sodium (Colace) 100 mg TWICE A DAY ORAL 05/08/18 09:00 06/07/18 08:59 05/08/18 17:33 Folic Acid (Folate) 2 mg DAILY ORAL 05/08/18 09:00 05/30/18 08:59 05/08/18 09:20 Furosemide (Lasix) 10 mg EVERY 8 HOURS IV 05/08/18 14:00 06/07/18 13:59 Heparin Sodium (Porcine) (Heparin 5000 units/ml) 5,000 units EVERY 12 HOURS SUBQ 05/07/18 21:00 05/29/18 20:59 05/07/18 21:01 Hydrocortisone (Anusol HC) 1 applic DAILYPRN PRN RECTAL hemorrhoid 05/07/18 21:00 05/28/18 20:59 Lidocaine (Xylocaine) 1 applic DAILYPRN PRN TOPIC hemorroidal pain 05/08/18 13:00 05/29/18 12:59 Midodrine (Pro-Amatine) 5 mg THREE TIMES A DAY ORAL 05/08/18 09:00 06/07/18 08:59 05/08/18 17:34 Pantoprazole (Protonix) 40 mg EVERY 12 HOURS ORAL 05/07/18 21:00 06/01/18 20:59 05/08/18 09:22 Patient Own Medication (Patient's Own Med) 1 ea DAILY ORAL 05/08/18 09:00 06/07/18 08:59 05/08/18 09:00 Prednisone (predniSONE) 30 mg BID ORAL 05/08/18 09:00 06/07/18 08:59 05/08/18 17:33 Sodium Chloride 500 ml @ 30 mls/hr ONCE ONCE IV 05/08/18 10:00 05/09/18 02:39 05/08/18 11:31 Thiamine HCl (Vitamin B1) 100 mg DAILY ORAL 05/08/18 09:00 05/30/18 08:59 05/08/18 09:21 Trimethoprim/ Sulfamethoxazole (Bactrim-DS) 2 tab Q8HR ORAL 05/07/18 22:00 05/14/18 13:59 05/08/18 14:11 Valganciclovir (Valcyte) 900 mg EVERY 12 HOURS ORAL 05/07/18 21:00 06/06/18 20:59 05/08/18 09:22 Hang Armendariz MD May 08, 2018 22:00
--- NOTE | 2018-05-08 23:18 | NUR ---
NURSE NOTES: Kenneth virgen per pharmacy spoke to Yudi Patient medication Valcyte 900mg po unavailable tonight at 21:00 next schedule morning 09:00 am. Addendum: 05/09/18 at 0057 by OTILIA ELY LVN Johanna Byrd Notified and aware.
[2018-05-09] VITALS: BP 130/75
[2018-05-09 04:46] VITALS: BP 110/74
--- NOTE | 2018-05-09 06:00 | NUR ---
NURSE NOTES: Lasix 10 mg IV to be given by Johanna VALENZUELA refused by patient explained the risk and benefits treatment . Patient refusing. will continue to monitor
[2018-05-09] MEDS: Bactrim-DS 1 tab ORAL SCH ×2 (06:11→12:27)
[2018-05-09 08:00] VITALS: BP 115/76
--- NOTE | 2018-05-09 08:12 | NUR ---
NURSE NOTES: Patient received in stable condition, observed to be ambulating with steady gait. Denies pain or respiratory distress at this time. Call light placed within reach. Will continue to monitor.
[2018-05-09] MEDS: Thiamine 100mg tab ORAL SCH (08:38)
[2018-05-09] MEDS: Acetaminophen 500mg (ES) tab ORAL PRN (08:38)
[2018-05-09] MEDS: Docusate 100mg cap ORAL SCH (08:40)
[2018-05-09] MEDS: Heparin 5000 units/ml inj SUBQ SCH (08:48)
[2018-05-09 12:00] VITALS: BP 113/83
--- NOTE | 2018-05-09 13:12 | NUR ---
NURSE NOTES: RN performed walk test with the patient for 6 minutes. Patient's O2 was 96% prior to the walk and 95% afterward. Patient denied shortness of breath during and after walk.
--- NOTE | 2018-05-09 14:41 | NUR ---
NURSE NOTES: Second voicemail left to Dr. Kiran (ID) for discharge medication orders. Call back phone number provided [phone].
--- NOTE | 2018-05-09 14:45 | General Progress Note ---
Assessment/Plan Assessment/Plan Assessment Recs: #. Lung mass, multiple -- has been seen by pulm and ID, 1. Bilateral pulmonary infiltrates, CAP versus PJP pneumonia versus other opportunistic infection or atypical infection. 2. Scattered GGO's and pulmonary nodules, likely infectious , possible underlying neoplastic process --> recommend abx as per ID, and pulm steriods --> HAART meds has been started --> can monitor for improvement resolution, recheck CT in 2 weeks on 05/13 --> biopsy of the lung can be ordered if no resolution --> needs outpatient followup and have discussed this with patient --> in the meantime consider cxr followup as per id # Anemia of chronic diseas due to underlying chronic medical issues, multifactorial --> Anemia workup has been ordered/reviewed --> No evidence of hemolysis is noted, peripheral smear has been reviewed. --> Hgb goal >7. Transfuse prn. --> Epogen can be considered given haart meds started --> Medications have been reviewed #. AIDS (CD4 count 18), recently back on antiretroviral therapy --> as per ID team, management --> closely trend and continue treatment as needed #. Leukopenia due to hiv/aids--> if anc is less than 2000 consider neupogen --> neupogen if anc anc <2000 --> reverse isolation #. Pyuria. #. GERD The timing of this note does not necessarily reflect the time of the patient was seen. Greatly appreciate consultation! Subjective Constitutional: Denies: no symptoms, chills, diaphoresis, fever, malaise, weakness, other HEENT: Denies: no symptoms, eye pain, blurred vision, tearing, double vision, ear pain, ear discharge, nose pain, nose congestion, throat pain, throat swelling, mouth pain, mouth swelling, other Cardiovascular: Denies: no symptoms, chest pain, edema, irregular heart rate, lightheadedness, palpitations, syncope, other Respiratory: Denies: no symptoms, cough, orthopnea, shortness of breath, SOB with excertion, SOB at rest, sputum, stridor, wheezing, other Gastrointestinal/Abdominal: Denies: no symptoms, abdomen distended, abdominal pain, black stools, tarry stools, blood in stool, constipated, diarrhea, difficulty swallowing, nausea, poor appetite, poor fluid intake, rectal bleeding , vomiting, other Genitourinary: Denies: no symptoms, burning, discharge, frequency, flank pain, hematuria, incontinence, pain, urgency, other Neurologic/Psychiatric: Denies: no symptoms, anxiety, depressed, emotional problems, headache, numbness, paresthesia, pre-existing deficit, seizure, tingling, tremors, weakness, other Endocrine: Denies: no symptoms, excessive sweating, flushing, intolerance to cold, intolerance to heat, increased hunger, increased thirst, increased urine, unexplained weight gain, unexplained weight loss, other Hematologic/Lymphatic: Denies: no symptoms, anemia, easy bleeding, easy bruising, other Allergies: Coded Allergies: No Known Allergies (Unverified , 04/28/18) Subjective 05/04: breathing is better, cxr reviewed and improved 05/05: seen by bedside, awake, comfortable, no acute distress reported. 05/06: Pt is awake, comfortable, no events reported. 05/07: no events, tolerating antivirals and abx well, without chills, night sweats 05/08: on abx and antifungals as per id 05/09: breathing better on ra, without complaints Objective Last 24 Hour Vital Signs Date Time Temp Pulse Resp B/P (MAP) Pulse Ox O2 Delivery O2 Flow Rate FiO2 05/09/18 12:00 98.1 107 18 113/83 (93) 96 05/09/18 09:00 Nasal Cannula 2.0 05/09/18 08:00 97.9 89 19 115/76 (89) 98 05/09/18 04:46 98.2 85 20 110/74 (86) 99 05/09/18 00:00 98.2 84 20 130/75 (93) 98 05/08/18 21:00 Nasal Cannula 2.0 05/08/18 20:00 97.7 93 19 108/77 (87) 97 05/08/18 16:00 98.2 92 19 113/75 (88) 94 05/08/18 14:45 97.7 Intake and Output 05/08/18 05/09/18 19:00 07:00 Intake Total 430 ml 1400 ml Balance 430 ml 1400 ml Intake Oral 400 ml 1040 ml IV Total 30 ml 360 ml # Voids 2 4 # Bowel Movements 1 Height (Feet): 5 Height (Inches): 6.00 Weight (Pounds): 122 Objective Gen: reviewed, normal General Appearance: no apparent distress, alert Head: normocephalic, atraumatic Eyes: bilateral eye normal inspection, bilateral eye PERRL ENT: hearing grossly normal, normal pharynx, no angioedema, normal voice Neck: full range of motion, supple/symm/no masses Respiratory: chest non-tender, lungs clear, normal breath sounds ++ tachypnea Cardiovascular: regular rate, rhythm, no edema Gastrointestinal: normal bowel sounds, non tender, soft, nd Musculoskeletal: back normal, gait/station normal, nt Neurologic: alert, oriented x3, responsive Psychiatric: judgement/insight wnl Skin: normal color, no rash, warm/dry Vinayak Cardona MD May 09, 2018 14:45
--- NOTE | 2018-05-09 15:37 | Nephrology Progress Note ---
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 AIDs Nephropathy Sz Asthma HIV / AIDS Anemia Low Na Plan 24 H urine Protein being collected under ! gram Anemia cotter, low folate low bp start Midodrine U os and S os for eval of low Na Ok to DC- If in house check labs in am per orders Subjective ROS Limited/Unobtainable: No Constitutional: Reports: other - anxious to go home Objective Objective Last 24 Hour Vital Signs Date Time Temp Pulse Resp B/P (MAP) Pulse Ox O2 Delivery O2 Flow Rate FiO2 05/09/18 12:00 98.1 107 18 113/83 (93) 96 05/09/18 09:00 Nasal Cannula 2.0 05/09/18 08:00 97.9 89 19 115/76 (89) 98 05/09/18 04:46 98.2 85 20 110/74 (86) 99 05/09/18 00:00 98.2 84 20 130/75 (93) 98 05/08/18 21:00 Nasal Cannula 2.0 05/08/18 20:00 97.7 93 19 108/77 (87) 97 05/08/18 16:00 98.2 92 19 113/75 (88) 94 Intake and Output 05/08/18 05/09/18 19:00 07:00 Intake Total 430 ml 1400 ml Balance 430 ml 1400 ml Intake Oral 400 ml 1040 ml IV Total 30 ml 360 ml # Voids 2 4 # Bowel Movements 1 Height (Feet): 5 Height (Inches): 6.00 Weight (Pounds): 122 Objective no change Lukasz Eric MD May 09, 2018 15:36
--- NOTE | 2018-05-09 16:55 | NUR ---
NURSE NOTES: Patient discharged home. RN accompanied the patient downstairs and witnessed him get into [employer] car. Belongings confirmed and reviewed with the patient at bedside. Patient noted to be in stable condition, breathing unlabored on room air, steady gait. Medications reviewed and prescriptions provided to the patient.
--- NOTE | 2018-05-10 00:34 | General Progress Note ---
Assessment/Plan Problem List: (1) Depressive disorder ICD Codes: F32.9 - Major depressive disorder, single episode, unspecified SNOMED: 19633871 Assessment/Plan seroquel standing seroquel prn the pt lacks capacity Subjective Neurologic/Psychiatric: Reports: anxiety, depressed Allergies: Coded Allergies: No Known Allergies (Unverified , 04/28/18) Subjective the pt was calm and is withdrawn Objective Last 24 Hour Vital Signs Date Time Temp Pulse Resp B/P (MAP) Pulse Ox O2 Delivery O2 Flow Rate FiO2 05/09/18 12:00 98.1 107 18 113/83 (93) 96 05/09/18 09:00 Nasal Cannula 2.0 05/09/18 08:00 97.9 89 19 115/76 (89) 98 05/09/18 04:46 98.2 85 20 110/74 (86) 99 Height (Feet): 5 Height (Inches): 6.00 Weight (Pounds): 122 General Appearance: no apparent distress, alert Neurologic: oriented x 3, responsive, depressed affect Elver Almaguer MD May 10, 2018 00:33
--- NOTE | 2018-05-11 14:15 | Discharge Summary ---
Discharge Summary Discharge Summary _ DATE OF ADMISSION: 04/28/2018 DATE OF DISCHARGE: 05/09/2018 DISCHARGED BY: REASON FOR ADMISSION: 38 years old male with history of HIV/AIDS, seizure disorder, asthma, hemorrhoids, stated that he was not able to take care of himself and w had not been following up with his infectious disease specialist. He recently restarted antiretroviral therapy. He complained of persistent and constant shortness of breath. It was getting worse over the last several days. He reported cough and congestion , but no hemoptysis. Patient reported being fatigued and having no appetite. Patient also reported weight loss. He denied chest pain. He denied abdominal pain. He denied fever and chills. On evaluation patient was tachycardic ,tachypneic, hypoxic, pulse oximetry was only 75%. No fevers. Laboratory workup revealed WBC 3.4, hemoglobin 12.8, hematocrit 38.1. Sodium 132. Chloride 97. Stable renal parameters. Glucose 85. Troponin negative. Elevated AST of 98 with normal ALT of 22. Albumin 2.0. Urinalysis revealed pyuria ,+3 protein ,and occasional bacteria. EKG revealed sinus tachycardia , no acute ischemic changes. Chest x-ray demonstrated extensive bilateral diffuse interstitial and airspace infiltrates versus edema , predominantly in the mid and lower lung. Patient was admitted for further management. CONSULTANTS: pulmonary ID specialist bench chemist Dr. Eric any commodity buyer/oncologist Dr. Carodna psychiatrist [facility] COURSE: Patient admitted to medical surgical floor. Diesel Mechanic Helper and ID specialist closely followed. Supplemental oxygen provided as needed to keep pulse oximetry above 90%. Pulmonary toilet provided as needed. Patient started on empiric antibiotic. Patient subsequently undergone CT of the chest , which revealed diffuse extensive pulmonary parenchymal disease, sparing only a very limited portion of the lungs bilaterally. Predominant finding was of diffuse ground-glass opacity, progressively denser toward the lung bases. In the setting of HIV positivity, main differential considerations were opportunistic infection such as a metastasis pneumonia, cytomegalovirus, herpes simplex virus, or respiratory syncytial virus. Community-acquired pneumonia, chronic interstitial diseases or idiopathic interstitial pneumonias, alveolar edema, hypersensitivity pneumonitis were also in the differential. Multiple pulmonary masses/nodules. The largest of these were spiculated with appearance highly typical for pulmonary neoplasm. However, given the findings as described above, the possibility that these were inflammatory in origin should also be considered. Bilateral apical subpleural blebs versus bullae, right greater than left. Ectatic main pulmonary artery, suspicious for pulmonary artery hypertension. Venous duplex bilateral lower extremity revealed no evidence of acute DVT. Patient empirically started on prednisone and Bactrim . Patient also started on azithromycin once a week and Valganciclovir prophylactically. Aspiration precaution maintained. Volumes and cardiorenal parameters were closely monitored. DVT prophylaxis provided. Patient was continue with his antiretroviral therapy/Genvoya. CD4 cell subsets revealed absolute CD4 of 18 with percentage of 4.6. HIV RNA copy [id number]. Cryptococcal serology negative . Hepatitis panel negative . Histoplasma and cocci serology still pending. Cytomegalovirus IgG antibody high, cytomegalovirus DNA by PCR positive. Per ID specialist, patient had CMV viremia. Blood cultures were negative. Sputum culture was negative. Rapid influenza screen test was negative. Sputum for PJS by DFA was negative. Follow-up chest x-ray revealed some improvement in congestion. Diesel Mechanic Helper recommended repeat CT scan in few weeks. Anusol suppository provided. Bowel regimen instituted. Folate and thiamine provided. Hemoglobin and hematocrit were closely monitored with goal to keep hemoglobin above 7. Hemoglobin remained stable , prior to discharge: hemoglobin 12 ,hematocrit 36.2 , remained at baseline. Anemia workup revealed evidence of anemia of chronic disease with elevated ferritin 1382. LDH elevated 1168. Elevated CRP. Noted low folate level . Patient started on folic acid and thiamine. TSH within normal limits. Seizure precaution maintained. DVT and GI prophylaxis provided. Facility Manager Histology followed. Renal parameters were closely monitored. Patient started on midodrine for low blood pressure. Blood pressure stabilized prior to discharge Patient was on fluid restriction. Serum and urine osmolarity were done. 3% sodium chloride and Lasix provided for treatment of hyponatremia. Per bench chemist , patient likely have SIADH. Stenciler followed. Stenciler /oncologist also recommended recheck CAT scan in 2 weeks He also recommended biopsy of the lung, if no resolution of the lung mass on the CT scan. Patient will need outpatient follow-up. Psychiatrist follow. Psychiatrist diagnosed patient with depressive disorder. Patient started on Seroquel. Follow-up chest x-ray revealed improvement in pulmonary infiltrates. Pulse oximetry was stable on room air . Patient was stable for discharge home Patient was discharged home on tapering prednisone regimen. 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 DISCHARGE INSTRUCTIONS: Patient was discharged home. Follow up with primary care provider in one week. Follow up with HIV provider. I have been assigned to dictate discharge summary for this account. I was not involved in the patient's management. Shaista France NP May 11, 2018 14:15
[2018-05-14] MEDS ORDERED: Azithromycin 600mg Tab ORAL SCH (15:00)
== END 2018-05-09 16:30 | disposition home or self-care (01) | DRG 890 ==
LOC: EMR 11:40 → EDBEDREQ 14:12 → EDBEDREQSVC 14:12 → EDBEDREQ 14:27 → 2W 15:10 → EDBEDREQ 15:29 → 2E 05-01 18:22 → 3E 05-07 17:33
DX: J96.01 Acute respiratory failure with hypoxia (principal); B20 Human immunodeficiency virus [HIV] disease; B25.9 Cytomegaloviral disease, unspecified; E46 Unspecified protein-calorie malnutrition; E22.2 Syndrome of inappropriate secretion of antidiuretic hormone; J18.9 Pneumonia, unspecified organism; N28.9 Disorder of kidney and ureter, unspecified; G40.909 Epilepsy, unspecified, not intractable, without status epilepticus; J45.909 Unspecified asthma, uncomplicated; F10.10 Alcohol abuse, uncomplicated; F32.9 Major depressive disorder, single episode, unspecified; F41.9 Anxiety disorder, unspecified; Z68.1 Body mass index [BMI] 19.9 or less, adult; Z91.14 Patient's other noncompliance with medication regimen; D64.9 Anemia, unspecified; N39.0 Urinary tract infection, site not specified; K21.9 Gastro-esophageal reflux disease without esophagitis; R91.8 Other nonspecific abnormal finding of lung field; D72.819 Decreased white blood cell count, unspecified
CPT/HCPCS: 36415; 36600; 71045; 71250; 80053; 80061; 81003; 81050; 82607; 82728; 82746; 82803; 83036; 83540; 83550; 83615; 83735; 83880; 83930; 83935; 84100; 84156; 84443; 84484; 84550; 85007; 85025; 86140; 86171; 86360; 86635; 86644; 86705; 86709; 86710; 86803; 87040; 87070; 87205; 87340; 87449; 87496; 87536; 93005; 93970; 94640; 94660; 94664; 94760; 96365; 96367; 96368; 96375; 99291; J7620